=== PATIENT | male | born 1945 | race Caucasian/White ===

== ENCOUNTER 2019-04-08 05:57 | Inpatient (IN) | payer OTHER ==
--- NOTE | 2019-04-01 10:14 | RAD REPORT ---
EXAM DESCRIPTION: RAD - Chest Pa And Lat (2 Views) - 04/01/2019 10:07 am CLINICAL HISTORY: preop Chest pain. COMPARISON: No comparisons FINDINGS: The lungs are mildly emphysematous but clear. The heart is normal in size. No displaced fr actures. IMPRESSION: Mild COPD
--- NOTE | 2019-04-01 10:20 | EKG ---
Test Date: 2019-04-01 Test Time: 10:15:27 Treating Engineer: YESICA MEASUREMENT RESULTS: Intervals: Rate: 57 OK: 192 QRSD: 78 QT: 404 QTc: 393 [place]: P: 55 OK: 192 QRS: 22 T: 51 INTERPRETIVE STATEMENTS: Sinus bradycardia Otherwise normal ECG Compared to ECG 01/16/2007 16:09:57 Sinus rhythm no longer present Electronically Signed On 04-01-19 10:19:50 INSEAMER by Willam Lewis
[2019-04-01 10:38] LABS: Absolute Lymphocytes (CBC) 2.1 K/uL (0.7-4.9); Basophils % 1.1 % (0-1.3); Hematocrit 47.3 % (39.6-49.0); Lymphocytes % 28.6 % (15.3-44.8); MPV 8.1 fL (7.6-11.3); RBC Red Blood Cell Count 5.17 M/uL (4.33-5.43)
[2019-04-01 10:47] LABS: Protime INR 1.03
[2019-04-01 10:53] LABS: Potassium 4.1 mmol/L (3.5-5.1)
--- OUTSIDE RECORDS SUMMARY | 2019-04-08 06:04 | XMS REPORT ---
:1945 Author Organization eClinicalWorks Care Team Providers Name Role Phone Ventura Zia Provider Role Unavailable Allergies No Known Allergies Problems Problem Type Condition Code Onset Dates Condition Status Problem Uses hearing aid Z97.4 Active Problem Bilateral leg cramps R25.2 Active Problem 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 Active classified elsewhere without behavioral disturbance Problem Primary osteoarthritis of left knee M17.12 Active Problem Left sided sciatica M54.32 Active Problem Alzheimer''s disease, unspecified G30.9 Active Problem Pain, joint, knee, left M25.562 Active Medications No Known Medications Results No Known Results Summary Purpose eClinicalWorks Submission
--- OUTSIDE RECORDS SUMMARY | 2019-04-08 06:04 | XMS REPORT ---
:1945 [facility] Address [address] [place] [address] Dr. Lorenzo[address] [place] [id number] Care Team Providers Name Role Phone Unavailable Unavailable Unavailable Problems This patient has no known problems. Allergies, Adverse Reactions, Alerts This patient has no known allergies or adverse reactions. Medications This patient has no known medications.
--- OUTSIDE RECORDS SUMMARY | 2019-04-08 06:04 | XMS REPORT ---
:1945 Author Organization eClinicalWorks Care Team Providers Name Role Phone ShelleyAnthony Provider Role Unavailable Allergies, Adverse Reactions, Alerts Substance Reaction Event Type N.K.D.A. Info Not Available Non Drug Allergy Problems Problem Type Condition Code Onset Dates Condition Status Assessment Primary osteoarthritis of left knee M17.12 Active Assessment Pain in joint of left knee M25.562 Active Assessment Lumbar radiculopathy M54.16 Active Problem Uses hearing aid Z97.4 Active Problem Bilateral leg cramps R25.2 Active Problem 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 Active classified elsewhere without behavioral disturbance Problem Primary osteoarthritis of left knee M17.12 Active Problem Left sided sciatica M54.32 Active Problem Alzheimer''s disease, unspecified G30.9 Active Problem Pain, joint, knee, left M25.562 Active Medications Medication Code Code Instructions Start End Status Dosage System Date Date Slow-Mag [facility] 14124883168 71.5-119 MG Active 2 tablets Orally Once a day Ginkgo Biloba [facility] [address] Active not defined Namenda XR [facility] 75366299524 28 MG Orally Active 1 capsule Once a day Aricept [facility] 50138623738 5 MG Orally Active 1 tablet at Twice a day bedtime Aspir-81 [facility] 17348147204 81 MG Orally Active 1 tablet Once a day Turmeric [facility] 13081573619 500 MG Orally Active as directed Curcumin Vitamin D3 [facility] [address] Active not defined Fish Oil [facility] 92527002074 1000 MG Orally Active 1 capsule Once a day Results No Known Results Summary Purpose eClinicalWorks Submission
--- OUTSIDE RECORDS SUMMARY | 2019-04-08 06:04 | XMS REPORT ---
:1945 Author Organization eClinicalWorks Care Team Providers Name Role Phone ShelleyAnthony Provider Role Unavailable Allergies, Adverse Reactions, Alerts Substance Reaction Event Type N.K.D.A. Info Not Available Non Drug Allergy Problems Problem Type Condition Code Onset Dates Condition Status Assessment Pain in joint of left hip M25.552 Active Assessment Pain in joint of left knee M25.562 Active Assessment Lumbar radiculopathy M54.16 Active Assessment Primary osteoarthritis of left knee M17.12 Active Problem Uses hearing aid Z97.4 Active [...] Start End Status Dosage System Date Date [facility] 98952319497 81 MG Orally Active 1 tablet Once a day Vitamin D3 [facility] [address] Active not defined Aricept [facility] 97015728323 5 MG Orally Active 1 tablet at Twice a day bedtime Namenda XR [facility] 78028347976 28 MG Orally Active 1 capsule Once a day Slow-Mag [facility] 41362478989 71.5-119 MG Active 2 tablets Orally Once a day Turmeric [facility] 19856453491 500 MG Orally Active as directed Curcumin Ginkgo Biloba [facility] [address] Active not defined Fish Oil [place] 99986108600 1000 MG Orally Active 1 capsule Once a day Results No Known Results Summary Purpose eClinicalWorks Submission
--- OUTSIDE RECORDS SUMMARY | 2019-04-08 06:05 | XMS REPORT ---
:1945 Author Organization eClinicalWorks Care Team Providers Name Role Phone Anthony Shelley Provider Role Unavailable Allergies No Known Allergies [...] Medications Medication Code Code Instructions Start End Date Status Dosage System Date Tramadol HCl [facility] 98033795442 50 MG Orally Apr 06, Active 1 tablet Once a day 2019 as needed Xarelto [facility] 02010349953 10 MG Orally Apr 06, Active 1 tablet Once a day 2019 Results No Known Results Summary Purpose eClinicalWorks Submission
--- OUTSIDE RECORDS SUMMARY | 2019-04-08 06:05 | XMS REPORT ---
:1945 Author Organization eClinicalWorks Care Team Providers Name Role Phone Shelley Anthony Provider Role Unavailable Allergies No Known Allergies [...]
--- OUTSIDE RECORDS SUMMARY | 2019-04-08 06:05 | XMS REPORT ---
[...] Medications Results No Known Results Summary Purpose [employer] Submission
--- OUTSIDE RECORDS SUMMARY | 2019-04-08 06:05 | XMS REPORT ---
[...] Medications Results No Known Results Summary Purpose [employer] Submission
--- OUTSIDE RECORDS SUMMARY | 2019-04-08 06:05 | XMS REPORT ---
[...] Start End Status Dosage System Date Date Vitamin D3 [facility] [address] Active not defined Namenda XR ND 75769033975 28 MG Orally Active 1 capsule Once a day Aspir-81 [facility] 21439789609 81 MG Orally Active 1 tablet Once a day Turmeric [facility] 98327670514 500 MG Orally Active as directed Curcumin Ginkgo Biloba [facility] [address] Active not defined Slow-Mag [facility] 72028047858 71.5-119 MG Active 2 tablets Orally Once a day Aricept [facility] 26515055468 5 MG Orally Active 1 tablet at Twice a day bedtime Fish Oil [facility] 24764959477 1000 MG Orally Active 1 capsule Once a day Results No Known Results Summary Purpose eClinicalWorks Submission
[2019-04-08] MEDS ORDERED: Ringers Lactate 1,000 ML IV ONE (06:17)
[2019-04-08] MEDS ORDERED: CEFAZOLIN/SWI 2gm 2 GM/20 ML SYR ONE (06:17)
[2019-04-08] MEDS ORDERED: LIDOCAINE 2% MPF 5 ML VIAL ONE (06:37)
[2019-04-08] MEDS ORDERED: MIDAZOLAM HCL 2 MG/2 ML INJ ONE (06:37)
[2019-04-08] MEDS ORDERED: FENTANYL CITR 250 MCG/5 ML ONE (06:37)
[2019-04-08] MEDS ORDERED: propofoL 200 MG/20 ML VIAL IV ONE ×6 (06:37→09:31)
[2019-04-08] MEDS ORDERED: dexAMETHasone 10 MG/ML VIAL ONE (06:46)
[2019-04-08] MEDS ORDERED: BUPIVACAINE 0.25% PF 30 ML VIAL ONE (06:47)
[2019-04-08] MEDS ORDERED: TRANEXAMIC ACID 1,000 MG in NA CHLORIDE 0.9% 50 ML IV SCH (07:15)
[2019-04-08] MEDS ORDERED: EPHEDRINE SULF 50 MG/ML VIAL ONE (08:02)
[2019-04-08] MEDS: Ringers Lactate 1,000 ML IV ONE ×3 (08:18→08:35)
[2019-04-08] MEDS: BUPIVACA 0.5%/EPI 0.0005%/PF 30 ML VIAL ONE ×2 (09:12→10:25)
[2019-04-08] MEDS ORDERED: KETOROLAC 30 MG/ML INJ ONE (10:06)
--- NOTE | 2019-04-08 10:50 | P.BOP ---
Preoperative diagnosis: left knee osteoarthritis Postoperative diagnosis: same Primary procedure: left total knee arthroplasty Instructor Creeler: NONE,NONE Estimated blood loss: 20 cc Specimen: left knee bone remnants Findings: see dictation Anesthesia: General Complications: None Implants: Biomet Yasmany Persona Femur 12 CR, H tibia, 10 mm CR poly, 38 patella Fluids & blood products: per anesthesia record; TT: 101 mins @ 275 mmHg Transferred to: Recovery Room Condition: Good
[2019-04-08] MEDS ORDERED: HYDROMORPHONE HCL 0.5 MG/0.5 ML INJ IV PRN (10:56)
[2019-04-08] MEDS ORDERED: METOPROLOL TARTRATE 5 MG/5 ML INJ IV PRN (11:23)
[2019-04-08] MEDS ORDERED: ONDANSETRON 4 MG/2 ML VIAL IV PRN (11:24)
[2019-04-08 11:26] LABS: Hematocrit 42.9 % (39.6-49.0)
--- NOTE | 2019-04-08 11:43 | RAD REPORT ---
EXAM DESCRIPTION: RAD - Knee Left 2 View - 04/08/2019 11:29 am CLINICAL HISTORY: Left knee surgery FINDINGS: Postoperative changes of a left knee arthroplasty. The prosthesis is in good position No fracture or dislocation
[2019-04-08] MEDS ORDERED: FENTANYL CITR 100 MCG/2 ML ONE (11:47)
--- NOTE | 2019-04-08 11:47 | P.CNS ---
Date of Consult: 04/08/19 Reason for Consult: Afib Primary Care Provider: Dr. Whitehead Chief Complaint: left total knee History of Present Illness: Patient is a 73 yo M with PMHx of Alzheimer's dementia who was had left total knee replacement today by Dr. Shelley. Post operatively during recovery phase patient went into atrial fibrillation with a rate of 80s-90s. Did not complain of any chest pain. EKG was done. Hospitalist service was consulted for medical management. No alleviating or aggravating factors. Symptoms are mild, constant and progressive. When I saw the patient in the PACU he was still groggy from anesthesia however did not have any complaints. His VS were stable. Labs were being drawn. Should be noted that most of the history is taken from the son, previous records and OR staff. Allergies morphine Allergy (Verified 04/01/19 09:41) AMS Home medications list reviewed: Yes Home Medications: Donepezil [Aricept] 5 mg PO DAILY 04/01/19 Memantine HCl [Namenda Xr] 28 mg PO DAILY 04/01/19 Multivitamin [Daily Multivitamin] 1 each PO DAILY 04/01/19 Turmeric Root Extract [Turmeric Curcumin] 2 tab PO DAILY 04/01/19 - Past Medical/Surgical History Diabetic: No -: Alzheimers -: ventral hernia repair -: cholecystectomy -: low back surgery -: left rotator cuff repair - Family History Mother History Unknown: Yes Medical History: Lung disease Notes: dementia - Social History Smoking Status: Never smoker Alcohol use: No CD- Drugs: No Caffeine use: Yes Place of Residence: Home Review of Systems 10-point ROS is otherwise unremarkable Cardiovascular: As per HPI Musculoskeletal: As per HPI Physical Examination Temp Pulse Resp BP Pulse Ox 97.8 F 85 20 135/76 04/08/19 11:27 04/08/19 11:27 04/08/19 11:27 04/08/19 11:27 General: Alert, In no apparent distress, Oriented x3, Mild distress HEENT: Atraumatic, PERRLA, Mucous membr. moist/pink, EOMI, Sclerae nonicteric Neck: Supple, JVD not distended Respiratory: Clear to auscultation bilaterally, Normal air movement Cardiovascular: No edema, Normal pulses, Normal S1 S2, Irregular heart rate/ rhythm Gastrointestinal: Normal bowel sounds, Soft and benign, Non-distended, No tenderness Musculoskeletal: No tenderness, Other (left knee bandaged. ) Integumentary: No rashes Neurological: Normal speech, Normal tone, Cranial nerves 3-12 intact, Normal affect Laboratory Data (last 24 hrs) 04/08/19 11:15: Hgb 14.4, Hct 42.9 - Problems (1) Paroxysmal A-fib Current Visit: Yes Status: Acute Plan: Patient has no previous diagnosis of Afib. Likely paroxysmal triggered by stressors of surgery. Will check TSH, magnesium level. Obtain Echocardiogram. Patients CHADSVASC score is low. Recommend aspirin for anti-coagulation. Add low dose BB. Lopressor IV prn HR>130 Out patient follow up w cardiology. Patient had sleep apnea previously prior to losing weight which is a risk factor for Afib. (2) Status post left knee replacement Current Visit: Yes Status: Acute Plan: management as per Dr. Shelley PT juliann for DVT prophylaxis (3) Alzheimer's dementia without behavioral disturbance Current Visit: Yes Status: Acute Qualifiers: Alzheimer's disease onset: early-onset Qualified Code(s): G30.0 - Alzheimer 's disease with early onset; F02.80 - Dementia in other diseases classified elsewhere without behavioral disturbance Conclusions/Impression: Thank you for the opportunity to participate in the care of your patient. Will follow along with you.
[2019-04-08 11:49] LABS: Magnesium 2.1 mg/dL (1.8-2.4); Thyroid Stimulating Hormone 1.78 uIU/mL (0.360-3.740)
[2019-04-08 12:46] VITALS: BMI 25.4
[2019-04-08] MEDS: TRAMADOL HCL 50 MG TAB PO PRN ×2 (13:25→20:21)
--- NOTE | 2019-04-08 13:58 | EKG ---
Test Date: 2019-04-08 Test Time: 11:01:54 Cleaner: BRADLEY MEASUREMENT RESULTS: Intervals: Rate: 80 HI: QRSD: 80 QT: 376 QTc: 433 [place]: P: HI: QRS: 54 T: 55 INTERPRETIVE STATEMENTS: Atrial fibrillation Abnormal ECG Compared to ECG 04/01/2019 10:15:27 Sinus bradycardia no longer present Electronically Signed On 04-08-19 13:57:36 TRANSPORTATION SALES CONSULTANT by Willam Lewis
--- NOTE | 2019-04-08 15:24 | ECHO ---
HEIGHT: 6 ft 0 in WEIGHT: 188 lb 0 oz DATE OF STUDY: 04/08/[address]: Emilie Carpenter MD 2-DIMENSIONAL: YES M.MODE: YES DOPPLER: YES COLOR FLOW: YES TDS: NO PORTABLE: NO DEFINITY: NO BUBBLE STUDY: NO DIAGNOSIS: ATRIAL FIBRILLATION NEW ONSET CARDIAC HISTORY: CATHERIZATION: NO SURGERY: NO PROSTHETIC VALVE: NO PACEMAKER: NO MEASUREMENTS (cm) DIASTOLIC (NORMALS) SYSTOLIC (NORMALS) IVSd 0.8 (0.6-1.2) LA Diam 3.1 (1.9-4.0) LVEF 73% LVIDd 5.7 (3.5-5.7) LVIDs 3.3 (2.0-3.5) %FS 42% LVPWd 1.0 (0.6-1.2) Ao Diam 3.1 (2.0-3.7) 2 DIMENSIONAL ASSESSMENT: RIGHT ATRIUM: NORMAL LEFT ATRIUM: NORMAL RIGHT VENTRICLE: NORMAL LEFT VENTRICLE: NORMAL TRICUSPID VALVE: NORMAL MITRAL VALVE: NORMAL PULMONIC VALVE: NORMAL AORTIC VALVE: NORMAL PERICARDIAL EFFUSION: NONE AORTIC ROOT: NORMAL LEFT VENTRICULAR WALL MOTION: NORMAL DOPPLER/COLOR FLOW: NORMAL COMMENTS: NORMAL 2D ECHOCARDIOGRAM WITH DOPPLER. SINUS RHYTHM DURING THEY STUDY. TECHNOLOGIST: Faustino CORNEJO
[2019-04-08 16:26] LABS: Urine Appearance CLOUDY; Urine Bilirubin NEGATIVE (NEG); Urine Blood NEGATIVE (NEG); Urine Color YELLOW; Urine Glucose NEGATIVE (NEG); Urine Protein NEGATIVE (NEG); Urine Specific Gravity >=1.030 (1.005-1.030); Urine Urobilinogen 0.2 mg/dL (0.2-1.0)
[2019-04-08 16:31] LABS: Urine Microscopic Reflex ORDER UMIC
[2019-04-08] MEDS: HYDROCODONE/APAP 7.5/325 MG TAB PO PRN (16:31)
[2019-04-08 16:41] LABS: Urine Amorphous Sediment 2+ /HPF (NONE SEEN); Urine Bacteria <20 /HPF (NONE SEEN); Urine Culture Reflex Order NOT NEEDED; Urine Mucus 2+ /HPF (NONE SEEN); Urine RBC <5 /HPF (NONE SEEN)
[2019-04-08] MEDS: CEFAZOLIN/SWI 2gm 2 GM/20 ML SYR IV SCH (17:33)
[2019-04-08] MEDS: carvediloL 3.125 MG TAB PO SCH (17:33)
--- NOTE | 2019-04-08 23:58 | OP ---
Date of Procedure: 04/08/2019 Surgeon: Anthony Shelley MD Preoperative Diagnosis: Left knee osteoarthritis. Postoperative Diagnosis: Left knee osteoarthritis. Procedure Performed: Left total knee arthroplasty. Anesthesia: General LMA. Fluids: Per Anesthesia record. Estimated Blood Loss: 20 mL. Complications: None. Tourniquet Time: 101 minutes at 275 mmHg. Implants: A Biomet Yasmany Persona femur size 12 standard CR; size H tibia, 10 mm CR poly; and a size 38 patella. Indication For Procedure: Darrel is a 73-year-old male, who presented to my clinic with signs and s ymptoms consistent with left knee osteoarthritis, who failed conservative treatment measures includin g injections, home exercise program. I discussed with the patient at length risks and benefits assoc iated with operative and nonoperative treatment. He expressed understanding and elected to proceed w ith the operative treatment. Description Of Procedure: After informed consent was obtained, the patient was identified in the pre operative holding area. The left lower extremity was marked. The patient was then taken back to the PACU where he underwent an adductor canal block to the left knee by Anesthesia. He was then transfe rred to the operating room, transferred to the operating table in supine fashion and placed under gen eral anesthesia. His left lower extremity was then prepped and draped in the usual sterile fashion. A time-out was initiated. The correct patient and procedure were confirmed and identified. The pat ient had received his preoperative prophylactic antibiotics. The left lower extremity was exsanguina lane and the tourniquet was inflated to 225 mmHg. Approximately, a 15 cm longitudinal incision was ma de centered over the patella. Dissection was then taken down the extensor mechanism. Median parapat ellar approach was then taken. Synovial fluid was then suctioned out. A fat pad was then excised. Lateral release was performed. The medial pericapsular tissue was then elevated off the proximal tib ia. The patella was everted. Osteophytes were then debrided using a rongeur. The medial and latera l meniscus were excised as well as the ACL. The knee was then placed in flexion. Preoperatively cut ting blocks have been made using MRI for surgical planning. A cutting block was then placed on the d istal femur, pins were placed, distal femoral cutting block was then placed. Steve wing was injury w as then used to confirm proper depth of the cut. Distal femur was then cut. The 4-in-1 guide was th en placed on the distal aspect of the distal femur. Anterior and posterior cuts were made as well as the anterior-posterior chamfer cuts. Steve wings were placed to ensure proper depth of the cuts. B one remnants were then placed on the back table and will be sent to pathology. The remainder of the medial and lateral meniscus were then excised. The tibial cutting guide was then placed on the proxi mal tibia. Alignment guide was placed and there was overall confirmation of proper alignment and slo pe. Pins were placed, proximal tibia was then cut. It was measured on the back table and a size H t ibia was selected. A size 12 standard CR femur was then placed for trial implant followed by the H t ibia and a 10 mm poly. The knee was in range, there is overall good stability and range of motion. The patella was then sized and cut using a size 38 patella. Patellar button was then placed. The kn ee was then ranged, there was good overall range of motion with good patellar tracking. The trial im plants were then removed. The wound was then irrigated thoroughly with normal saline. The anterior and posterior capsule were then injected with 0.5% Marcaine with epinephrine as well as the periosteu m and quad tendons and soft tissue around the proximal tibia. The cement was then prepared on the ba ck table and placed on the proximal tibia. The tibia was punched. Size H tibia then placed. Excess cement was then removed using a [place] elevator. The instrument was then placed on the distal femur. Distal femoral implant of a size 12 CR femur was placed. Excess cement was then removed. The 10 m m trial poly was then placed. The knee was held in extension as the cement hardened. Excess cement was then placed on the undersurface of the patella as 38 patella button was in. Excess cement was th en removed, the knee was then ranged, there was good overall tracking, flexion-extension, good stabil ity. Trial poly was then removed and the final poly 10 mm CR poly liner was then placed, locked into position. The knee was again ranged, there was good overall range of motion, patellar tracking, and stability. The wound was then again irrigated thoroughly with normal saline using pulse lavage. Ex tensor mechanism was then approximated using an interrupted #1 Vicryl followed by a running #1 Vicryl . The deep fascia was approximated using 0 Vicryl. Subcu tissue was approximated using a 2-0 Vicryl . Skin was approximated using francisco. Sterile dressing was applied. Tourniquet had been let down prior to closure. Hemostasis was achieved using Bovie electrocautery. The patient was awakened and transferred to PACU in stable condition. Postoperative Plan: Physical Therapy will be consulted postoperatively. He will be admitted to the floor for pain control and as well as medical monitoring. CV/MODL Voice ID: [id number] Report ID: [id number]
[2019-04-09] MEDS: HYDROCODONE/APAP 7.5/325 MG TAB PO PRN ×2 (00:13→06:53)
[2019-04-09] MEDS: CEFAZOLIN/SWI 2gm 2 GM/20 ML SYR IV SCH ×2 (00:14→09:19)
[2019-04-09] MEDS: TRAMADOL HCL 50 MG TAB PO PRN (04:15)
[2019-04-09] MEDS: carvediloL 3.125 MG TAB PO SCH ×2 (05:20→18:23)
[2019-04-09] MEDS: ENOXAPARIN 30 MG/0.3 ML SQ SCH ×2 (05:21→18:23)
[2019-04-09 06:26] LABS: Basophils % 0.1 % (0-1.3); Hematocrit 39.9 % (39.6-49.0); Lymphocytes % 7.6 % (15.3-44.8); MPV 8.7 fL (7.6-11.3); RBC Red Blood Cell Count 4.38 M/uL (4.33-5.43)
[2019-04-09 06:47] LABS: Magnesium 2.2 mg/dL (1.8-2.4); Phosphorus 2.9 mg/dL (2.5-4.9); Potassium 4.6 mmol/L (3.5-5.1)
[2019-04-09] MEDS: ASPIRIN EC 81 MG TAB PO SCH (08:42)
[2019-04-09] MEDS: MULTIVITAMIN TAB PO SCH (08:42)
[2019-04-09] MEDS: CELECOXIB 100 MG CAPSULE PO SCH (08:42)
[2019-04-09] MEDS ORDERED: DONEPEZIL HCL 5 MG TAB PO SCH (09:00)
[2019-04-09] MEDS ORDERED: HOME MED 1 EA UNK (Memantine Hcl [Namenda Xr] 28 MG) PO SCH (09:00)
[2019-04-09] MEDS: POLYETHYL GLY 3350 17 GM/DOSE PO SCH (09:19)
[2019-04-09] MEDS: DOCUSATE NA 100 MG CAP PO SCH ×2 (09:19→21:17)
[2019-04-09] MEDS: HYDROCODONE/APAP 10/325 TAB PO PRN ×3 (10:59→21:17)
--- NOTE | 2019-04-09 11:34 | P.PN ---
Subjective Date of Service: 04/09/19 Primary Care Provider: Dr. Whitehead Chief Complaint: left total knee Subjective: Improving Patient seen and examined. Patient did have some sun downing last night. Confused per family member last night. Today complains of pain. Still in sinus rhythm. Review of Systems 10-point ROS is otherwise unremarkable Cardiovascular: As per HPI Musculoskeletal: As per HPI Physical Examination - Vital Signs Temperature: 99.2 F Blood Pressure: 107/59 Pulse: 66 Respirations: 16 Pulse Ox (%): 95 - Physical Exam General: Alert, Oriented x3, Mild distress HEENT: Atraumatic, PERRLA, EOMI Neck: Supple, JVD not distended Respiratory: Clear to auscultation bilaterally, Normal air movement Cardiovascular: Normal pulses, Regular rate/rhythm, Normal S1 S2 Gastrointestinal: Normal bowel sounds, Soft and benign, Non-distended, No tenderness Musculoskeletal: No clubbing, No swelling, Tenderness Integumentary: No rashes, No erythema Neurological: Normal speech, Normal tone, Normal affect Lymphatics: No axilla or inguinal lymphadenopathy - Studies Laboratory Data (last 24 hrs) 04/09/19 05:19: Sodium 141, Potassium 4.6, BUN 21 H, Creatinine 1.06, Glucose 111 H, Phosphorus 2.9, Magnesium 2.2 04/09/19 05:19: WBC 13.6 H D, Hgb 13.3 L, Hct 39.9, Plt Count 184 04/08/19 11:15: Magnesium 2.1 04/08/19 11:15: Hgb 14.4, Hct 42.9 Medications List Reviewed: Yes Assessment And Plan - Current Problems (Diagnosis) (1) Paroxysmal A-fib Current Visit: Yes Status: Acute Plan: Patient has no previous diagnosis of Afib. Likely paroxysmal triggered by stressors of surgery. Now back in sinus rhythm. TSH, magnesium level normal. Obtain Echocardiogram. Patients CHADSVASC score is low. Recommend aspirin for anti-coagulation. Continue low dose BB. Lopressor IV prn HR>130 Out patient follow up w cardiology. Patient had sleep apnea previously prior to losing weight which is a risk factor for Afib. (2) Status post left knee replacement Current Visit: Yes Status: Acute Plan: Increase norco to 10mg dose. Family states pt gets confused w IV narcotics. management as per Dr. Shelley PT lovenox for DVT prophylaxis (3) Alzheimer's dementia without behavioral disturbance Current Visit: Yes Status: Acute Qualifiers: Alzheimer's disease onset: early-onset Qualified Code(s): G30.0 - Alzheimer 's disease with early onset; F02.80 - Dementia in other diseases classified elsewhere without behavioral disturbance
--- NOTE | 2019-04-09 12:24 | P.PN ---
Subjective Date of Service: 04/09/19 Primary Care Provider: Dr. Whitehead Chief Complaint: s/p Left total knee Subjective: Improving, Working w/ PT some confusion yesterday with anesthesia; improvement today; OOB with PT today Physical Examination - Vital Signs Temperature: 99.2 F Blood Pressure: 107/59 Pulse: 66 Respirations: 16 Pulse Ox (%): 95 - Physical Exam General: Alert, In no apparent distress Musculoskeletal: Other (LLE: dressing c/d/i; +EHL/FHL/GSC/TA; sensation grossly intact over dorsal and plantar foot; reports some paresthesias over the dorsal foot) - Studies Laboratory Data (last 24 hrs) 04/09/19 05:19: Sodium 141, Potassium 4.6, BUN 21 H, Creatinine 1.06, Glucose 111 H, Phosphorus 2.9, Magnesium 2.2 04/09/19 05:19: WBC 13.6 H D, Hgb 13.3 L, Hct 39.9, Plt Count 184 Medications List Reviewed: Yes Assessment And Plan - Plan Darrel is a 73 yo male s/p L TKA POD#1 with post op afib -in normal sinus rhythm at this time; medicine following - PT to mobilize; WBAT LLE -lovenox for DVT prophylaxis
[2019-04-09] MEDS: DONEPEZIL HCL 5 MG TAB PO SCH (21:17)
[2019-04-10] MEDS: HYDROCODONE/APAP 10/325 TAB PO PRN ×2 (02:14→08:19)
[2019-04-10] MEDS: ENOXAPARIN 30 MG/0.3 ML SQ SCH ×2 (06:03→18:30)
[2019-04-10] MEDS: TRAMADOL HCL 50 MG TAB PO PRN ×3 (06:03→19:50)
[2019-04-10] MEDS: carvediloL 3.125 MG TAB PO SCH ×2 (06:03→18:29)
[2019-04-10] MEDS: MULTIVITAMIN TAB PO SCH (08:18)
[2019-04-10] MEDS: ASPIRIN EC 81 MG TAB PO SCH (08:18)
[2019-04-10] MEDS: DOCUSATE NA 100 MG CAP PO SCH ×2 (08:18→19:51)
[2019-04-10] MEDS: CELECOXIB 100 MG CAPSULE PO SCH (08:18)
[2019-04-10] MEDS: POLYETHYL GLY 3350 17 GM/DOSE PO SCH (08:20)
[2019-04-10] MEDS: MEMANTINE HCL 28 MG PO SCH (08:20)
--- NOTE | 2019-04-10 08:35 | EKG ---
Test Date: 2019-04-09 Test Time: 21:58:30 Scientific Process Operator: RT Morley MEASUREMENT RESULTS: Intervals: Rate: 65 [place]: 162 QRSD: 74 QT: 378 QTc: 393 [place]: P: 18 WV: 162 QRS: 31 T: 56 INTERPRETIVE STATEMENTS: Normal sinus rhythm Low voltage QRS Borderline ECG Compared to ECG 04/08/2019 11:01:54 Low QRS voltage now present Atrial fibrillation no longer present Electronically Signed On 04-10-19 08:34:27 NEWS VIDEO EDITOR by Willam Lewis
[2019-04-10] MEDS ORDERED: HYDROCODONE/APAP 5/325 MG TAB PO PRN (09:03)
--- NOTE | 2019-04-10 09:06 | P.PN ---
Subjective Date of Service: 04/10/19 Primary Care Provider: Dr. Whitehead Chief Complaint: s/p Left total knee some confusion remain; ambulated with PT yesterday; Physical Examination - Vital Signs Temperature: 98.8 F Blood Pressure: 120/68 Pulse: 65 Respirations: 16 Pulse Ox (%): 95 - Physical Exam General: In no apparent distress Musculoskeletal: Other (LLE: dressing c/d/i; moves foot and ankle grossly) - Studies Medications List Reviewed: Yes Assessment And Plan - Plan Darrel is a 73 yo male s/p L TKA POD#2 with post op afib -in normal sinus rhythm at this time; medicine following - PT to mobilize; WBAT LLE -lovenox for DVT prophylaxis -with confusion will keep until tomorrow and continue to work with PT
--- NOTE | 2019-04-10 13:23 | RAD REPORT ---
EXAM DESCRIPTION: CT - Head Brain Wo Cont - 04/10/2019 1:17 pm CLINICAL HISTORY: ams Headache, drowsiness COMPARISON: Chest Pa And Lat (2 Views) dated 04/01/2019 TECHNIQUE: All CT scans are performed using dose optimization technique as appropriate and may inclu de automated exposure control or mA/KV adjustment according to patient size. FINDINGS: No intracranial hemorrhage, hydrocephalus or extra-axial fluid collection.Moderate periven tricular and deep white matter chronic microvascular ischemic changes suspected.No areas of brain garth ma or evidence of midline shift. The paranasal sinuses and mastoids are clear. The calvarium is intact. IMPRESSION: No acute intracranial abnormality. If clinical symptomology persists or progresses, MR imaging of the brain may be helpful.
--- NOTE | 2019-04-10 13:44 | P.PN ---
Subjective Date of Service: 04/10/19 Primary Care Provider: Dr. Whitehead Chief Complaint: s/p Left total knee Patient seen and examined. Confused per family member. Worked with PT. Still in sinus rhythm. Review of Systems 10-point ROS is otherwise unremarkable Physical Examination - Vital Signs Temperature: 98.6 F Blood Pressure: 104/60 Pulse: 64 Respirations: 15 Pulse Ox (%): 92 - Physical Exam General: Alert, In no apparent distress, Oriented x1, Mild distress HEENT: Atraumatic, PERRLA, EOMI Neck: Supple, JVD not distended Respiratory: Clear to auscultation bilaterally, Normal air movement Cardiovascular: No edema, Normal pulses, Regular rate/rhythm, Normal S1 S2 Gastrointestinal: Normal bowel sounds, Soft and benign, Non-distended, No tenderness Musculoskeletal: Tenderness (left knee) Integumentary: No rashes Neurological: Normal speech, Normal tone, Cranial nerves 3-12 intact, Normal affect - Studies Medications List Reviewed: Yes Assessment And Plan - Current Problems (Diagnosis) (1) Paroxysmal A-fib Current Visit: Yes Status: Acute Plan: Patient has no previous diagnosis of Afib. Likely paroxysmal triggered by stressors of surgery. Now back in sinus rhythm. TSH, magnesium level normal. Obtain Echocardiogram. Patients CHADSVASC score is low. Recommend aspirin for anti-coagulation. Continue low dose BB. Lopressor IV prn HR>130 Out patient follow up w cardiology. (2) Status post left knee replacement Current Visit: Yes Status: Acute Plan: norco increased to 10mg dose. Family states pt gets confused w IV narcotics. management as per Dr. Shelley PT lovenox for DVT prophylaxis (3) Alzheimer's dementia without behavioral disturbance Current Visit: Yes Status: Acute Plan: Still confused. Likely from anesthesia, sun downing. May use geodon or haldol for agitation as needed. Head CT negative Qualifiers: Alzheimer's disease onset: early-onset Qualified Code(s): G30.0 - Alzheimer 's disease with early onset; F02.80 - Dementia in other diseases classified elsewhere without behavioral disturbance
--- NOTE | 2019-04-10 14:32 | EKG ---
Test Date: 2019-04-09 Test Time: 21:59:07 [employer]: RT Morley MEASUREMENT RESULTS: Intervals: Rate: 64 PA: 160 QRSD: 92 QT: 374 QTc: 385 [place]: P: 25 PA: 160 QRS: 29 T: 59 INTERPRETIVE STATEMENTS: Normal sinus rhythm Low voltage QRS Borderline ECG Compared to ECG 04/09/2019 21:58:30 No significant changes Electronically Signed On 04-10-19 14:31:16 [employer] by Willam Lewis
--- NOTE | 2019-04-10 15:19 | RAD REPORT ---
EXAM DESCRIPTION: RAD - Chest Single View - 04/10/2019 3:06 pm CLINICAL HISTORY: ams COMPARISON: Chest Pa And Lat (2 Views) dated 04/01/2019 TECHNIQUE: AP portable chest image was obtained 04/10/2019 3:06 pm . FINDINGS: Lungs are clear. Low lung volumes are noted. Interstitial pattern is similar to comparison . Heart and vasculature are normal. No measurable pleural effusion and no pneumothorax. No acute bony abnormality seen. No acute aortic findings suspected. IMPRESSION: No acute cardiopulmonary process.
[2019-04-10] MEDS: DONEPEZIL HCL 5 MG TAB PO SCH (19:51)
[2019-04-11] MEDS: TRAMADOL HCL 50 MG TAB PO PRN (01:46)
[2019-04-11 05:55] LABS: Absolute Lymphocytes (CBC) 1.6 K/uL (0.7-4.9); Basophils % 0.5 % (0-1.3); Hematocrit 36.6 % (39.6-49.0); Lymphocytes % 18.3 % (15.3-44.8); MPV 8.2 fL (7.6-11.3); RBC Red Blood Cell Count 3.95 M/uL (4.33-5.43)
[2019-04-11 06:11] LABS: Magnesium 2.1 mg/dL (1.8-2.4); Phosphorus 1.7 mg/dL (2.5-4.9)
[2019-04-11] MEDS: ENOXAPARIN 30 MG/0.3 ML SQ SCH (06:24)
[2019-04-11] MEDS: carvediloL 3.125 MG TAB PO SCH (06:24)
[2019-04-11] MEDS: MULTIVITAMIN TAB PO SCH (08:45)
[2019-04-11] MEDS: MEMANTINE HCL 28 MG PO SCH (08:45)
[2019-04-11] MEDS: POLYETHYL GLY 3350 17 GM/DOSE PO SCH (08:46)
[2019-04-11] MEDS: DOCUSATE NA 100 MG CAP PO SCH (08:46)
[2019-04-11] MEDS: CELECOXIB 100 MG CAPSULE PO SCH (08:46)
[2019-04-11] MEDS: ASPIRIN EC 81 MG TAB PO SCH (08:46)
[2019-04-11 09:33] VITALS: O2SAT 96
[2019-04-11] MEDS ORDERED: IBUPROFEN 400 MG TAB PO PRN (10:07)
--- NOTE | 2019-04-11 10:54 | P.DS ---
Admission Date: 04/08/19 Discharge Date: 04/11/19 Primary Care Provider: Dr. Whitehead Disposition: DC HOME/HOME HEALTH CARE Discharge Condition: GOOD Reason for Admission: s/p Left total knee Consultations: Hospitalist Service: Dr. Carpenter Procedures: left total knee arthroplasty 04/08/2019 Brief History of Present Illness: Darrel is a 73 yo male with PMHx Alzheimer's dementia s/p left TKA on 2019 without complication Hospital Course: Patient underwent L TKA on 04/08/2019 without complication. In PACU he was noted to have paroxysmal afib and hospitalist service consulted. Patient had EKG, and echocardiogram performed and remained in normal sinus rhythm while on the floor with stable vital signs. Pain was controlled and physical therapy was consulted to aid with mobilization. He had some confusion while on the floor with history of Alzheimer's. He had CT head which was negative for acute pathology. He was discharged on 04/11/2019 in stable condition. He was given lovenox for DVT prophylaxis while on the floor and will be discharged with Xarelto for home. He will followup in my clinic in 2 weeks for staple removal and was also instructed to followup with cardiology on an outpatient basis. Vital Signs/Physical Exam: Temp Pulse Resp BP Pulse Ox 98.1 F 69 18 112/70 95 04/11/19 08:00 04/11/19 08:00 04/11/19 08:00 04/11/19 08:00 04/11/19 08:00 Laboratory Data at Discharge: WBC 8.8 K/uL (4.3-10.9) D 04/11/19 05:22 Hgb 12.4 g/dL (13.6-17.9) L 04/11/19 05:22 Hct 36.6 % (39.6-49.0) L 04/11/19 05:22 Plt Count 171 K/uL (152-406) 04/11/19 05:22 PT 12.1 SECONDS (9.5-12.5) 04/01/19 10:10 INR 1.03 04/01/19 10:10 APTT 33.6 SECONDS (24.3-36.9) 04/01/19 10:10 Sodium 142 mmol/L (136-145) 04/11/19 05:22 Potassium 4.0 mmol/L (3.5-5.1) 04/11/19 05:22 BUN 18 mg/dL (7-18) 04/11/19 05:22 Creatinine 0.96 mg/dL (0.55-1.3) 04/11/19 05:22 Glucose 84 mg/dL (74-106) 04/11/19 05:22 Phosphorus 1.7 mg/dL (2.5-4.9) L 04/11/19 05:22 Magnesium 2.1 mg/dL (1.8-2.4) 04/11/19 05:22 Home Medications: Donepezil [Aricept] 5 mg PO DAILY 04/01/19 Memantine HCl [Namenda Xr] 28 mg PO DAILY 04/01/19 Multivitamin [Daily Multivitamin] 1 each PO DAILY 04/01/19 Turmeric Root Extract [Turmeric Curcumin] 2 tab PO DAILY 04/01/19 Aspirin [Aspirin EC 81 MG] 81 mg PO DAILY #30 tablet. 04/11/19 Docusate [Colace Cap*] 100 mg PO BID cap 04/11/19 carvediloL [Coreg*] 3.125 mg PO BID 6AM 6PM #30 tab 04/11/19 New Medications: Aspirin [Aspirin EC 81 MG] 81 mg PO DAILY #30 tablet. carvediloL [Coreg*] 3.125 mg PO BID 6AM 6PM #30 tab Patient Discharge Instructions: keep dressing intact; use WILMER hose x 2 weeks; begin Xarelto tomorrow 04/12/19 in the morning; may take Tylenol as needed for pain and ibuprofen 400 mg in between Tylenol doses as needed for pain; followup with cardiology Diet: Regular Activity: Weight bearing as tolerated Followup: Anthony Shelley MD [ACTIVE - CAN ADMIT] - 1-2 Weeks
--- NOTE | 2019-04-11 10:55 | P.PN ---
Subjective Date of Service: 04/11/19 Primary Care Provider: Dr. Whitehead Chief Complaint: s/p Left total knee Subjective: Ambulating, Improving Patient seen and examined. Case discussed with Dr Shelley. Family at the bedside. Worked well with PT. Still in sinus rhythm Review of Systems 10-point ROS is otherwise unremarkable Physical Examination - Vital Signs Temperature: 98.1 F Blood Pressure: 112/70 Pulse: 69 Respirations: 18 Pulse Ox (%): 95 - Physical Exam General: Alert, In no apparent distress, Oriented x2 HEENT: Atraumatic, PERRLA, EOMI Neck: Supple, JVD not distended Respiratory: Clear to auscultation bilaterally, Normal air movement Cardiovascular: Regular rate/rhythm, Normal S1 S2 Gastrointestinal: Normal bowel sounds, Soft and benign, Non-distended, No tenderness Musculoskeletal: No tenderness Integumentary: No rashes Neurological: Normal speech, Normal strength at 5/5 x4 extr, Normal tone, Normal affect - Studies Laboratory Data (last 24 hrs) 04/11/19 05:22: Sodium 142, Potassium 4.0, BUN 18, Creatinine 0.96, Glucose 84, Phosphorus 1.7 L, Magnesium 2.1 04/11/19 05:22: WBC 8.8 D, Hgb 12.4 L, Hct 36.6 L, Plt Count 171 Medications List Reviewed: Yes Assessment And Plan - Current Problems (Diagnosis) (1) Paroxysmal A-fib Current Visit: Yes Status: Acute Plan: Patient has no previous diagnosis of Afib. Likely paroxysmal triggered by stressors of surgery. Now back in sinus rhythm. TSH, magnesium level normal. Patients CHADSVASC score is low. Recommend aspirin for anti-coagulation. Continue low dose BB. Lopressor IV prn HR>130 Out patient follow up w cardiology. (2) Status post left knee replacement Current Visit: Yes Status: Acute Plan: norco increased to 10mg dose. Family states pt gets confused w IV narcotics. management as per Dr. Shelley PT lovenox for DVT prophylaxis (3) Alzheimer's dementia without behavioral disturbance Current Visit: Yes Status: Acute Plan: Back to baseline. Head CT negative Qualifiers: Qualified Code(s): G30.0 - Alzheimer's disease with early onset; F02.80 - Dementia in other diseases classified elsewhere without behavioral disturbance
[2019-04-11 15:08] VITALS: BP 112/59; TEMP 99.4
== END 2019-04-11 14:59 | disposition home health service (06) | DRG 470 ==
LOC: OR 05:57 → ERHOLD 10:51 → 2ND 11:11
PROVIDERS: ADMIT Orthopaedic Surgery Sports Medicine; ATTEND Orthopaedic Surgery Sports Medicine
PROC: 0SRD069 Replacement of Left Knee Joint with Oxidized Zirconium on Polyethylene Synthetic Substitute, Cemented, Open Approach (ICD-10-PCS; principal; 2019-04-08 07:30)
DX: M17.12 Unilateral primary osteoarthritis, left knee (principal); I97.191 Other postprocedural cardiac functional disturbances following other surgery; M54.16 Radiculopathy, lumbar region; G30.9 Alzheimer's disease, unspecified; F02.80 Dementia in other diseases classified elsewhere, unspecified severity, without behavioral disturbance, psychotic disturbance, mood disturbance, and anxiety; Z79.82 Long term (current) use of aspirin; I48.0 Paroxysmal atrial fibrillation
CPT/HCPCS: 36415; 70450; 71045; 71046; 80048; 81003; 81015; 83735; 84100; 84145; 84443; 85014; 85018; 85025; 85610; 85730; 87040; 88304; 88305; 88311; 93005; 93306; 97116; 97139; 97161; 97530; J0690; J1100; J1650; J2250; J2704; J3010; J7120

== ENCOUNTER 2019-09-06 09:45 | Emergency (ER) | payer OTHER ==
--- OUTSIDE RECORDS SUMMARY | 2019-09-06 09:47 | XMS REPORT ---
:1945 Author Organization [employer] Care Team Providers Name Role Phone Anthony Shelley Provider Role Unavailable Allergies, Adverse Reactions, Alerts Substance Reaction Event Type N.K.D.A. Info Not Available Non Drug Allergy Problems Problem Type Condition Code Onset Dates Condition Statu s Problem Left sided sciatica M54.32 Active Problem Pain, joint, knee, left M25.562 Acti ve Assessment Pain in joint of left knee M25.562 A ctive Assessment 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 Assessment Pain, joint, knee, left M25.562 Acti ve Problem 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 Problem Bilateral leg cramps R25.2 Active Problem Atrial fibrillation, unspecified I48.91 Active type Problem Uses hearing aid Z97.4 Active Problem Primary osteoarthritis of left knee M17.12 Active Problem Alzheimer''s disease, unspecified G30.9 Active Problem 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 A ctive classified elsewhere without behavioral disturbance Medications Medication Code Code Instructions Start End Status Dosage System Date Date Namenda XR [facility] 27248898823 28 MG Orally Active 1 ca psule Once a day Ginkgo Biloba [facility] 10942-46811 Active not de fined Slow-Mag [facility] 42356981582 71.5-119 MG Active 2 table ts Orally Once a day Turmeric ND 52425907672 500 MG Orally Active as di rected Curcumin Aricept [facility] 99302682513 5 MG Orally Active 1 tablet at Twice a day bedtime Vitamin D3 [facility] 02226-70869 Active not defin ed Tramadol HCl ND 88795868887 50 MG Orally Apr 06, Active 1 tablet as Once a day 2020 needed Aspir-81 ND 24532992136 81 MG Orally Active 1 tabl et Once a day Fish Oil ND 70301057309 1000 MG Orally Active 1 ca psule Once a day Results No Known Results Summary Purpose [employer]ClinicalWorks Submission
--- OUTSIDE RECORDS SUMMARY | 2019-09-06 09:47 | XMS REPORT | Clinical Summary ---
:1945 Author Organization [facility] Address [address] [place] [address] Care Team Providers Name Role Phone Darinel Lewis Primary Care Provider Allergies Active Allergy Reactions Severity Noted Date Comments Propofol Other (See Comments) 06/26/2017 Per pat ient's family "doesnt do well" Morphine 06/26/2017 Medications Medication Sig Dispensed Refills Start Date End Date Status aspirin (ECOTRIN) 81 Take 81 mg by 0 Active MG enteric coated mouth daily. tablet UNABLE TO FIND EMpower 3 tabs 0 Active BID(vitamins) UNABLE TO FIND Med Name: Vatality 0 Active multivitamin cyanocobalamin 100 Take by mouth 0 Active MCG tablet daily. NAMENDA XR 28 mg Take 1 capsule (28 90 capsule 1 03/12/2018 Active capsule,sprinkle,ER mg total) by mouth 24hr daily. Active Problems Not on file Family History Medical History Relation Name Comments Cancer Mother Dementia Mother Relation Name Status Comments Mother Social History Tobacco Use Types Packs/Day Years Used Date Never Smoker Smokeless Tobacco: Never Used Alcohol Use Drinks/Week oz/Week Comments No Sex Assigned at Date Recorded Not on file Job Start Date Occupation Industry Not on file Not on file Not on file Travel History Travel Start Travel End No recent travel history available. Last Filed Vital Signs Not on file Plan of Treatment Health Maintenance Due Date Last Done Comments COLONOSCOPY SCREENING 1996 SHINGLES VACCINES (#1) 1996 65+ PNEUMOCOCCAL VACCINE (1 of 2 - PCV13) 01/01/2012 INFLUENZA VACCINE 10/17/2019 Results Not on fileafter 09/05/2018 Insurance Payer Benefit Plan / Subscriber ID Effective Dates Phone Addre ss Type Group HUMANA MEDICARE HUMANA MEDICARE xxxxxxxxx 2017-Present PPO PPO/PFFS/ERS MCR [phone] [id number] (Work) Darrel Vivas Kofi Personal/Family Self 1945 [address] (Home) [place], [place] [phone] [id number] (Work) Advance Directives For more information, please contact: [phone] Type Date Recorded 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
--- OUTSIDE RECORDS SUMMARY | 2019-09-06 09:47 | XMS REPORT | Continuity of Care Document ---
:1945 Author Organization [facility] t Address [address] [place] [address] Care Team Providers Name Role Phone Darinel Geller Primary Care Physician 1, Lab Attending Clinician Unavailable Doctor Unassigned, Name Attending Clinician Unavailable Problems Condition Condition Condition Status Onset Resolution Last Treating Co mments Source Name Details Category Date Date Treatment Clinician Date Neuroma [facility]roma [facility] Bilateral Bilateral Problem Active [facility] leg cramps leg cramps Kathia kes - [facility] Uses Uses Problem Active [facility] hearing hearing [facility] aid aid [facility] Dementia Dementia Problem Active [facility] other in other [facility] - diseases diseases Memori a classified classified l elsewhere elsewhere Outp ati without without ent behavioral behavioral Cl inics disturbanc disturbanc e e Alzheimer' Alzheimer' Problem Active [facility] - disease, disease, [facility] unspecifie [facility] l [facility] Primary Primary Problem Active [facility] osteoarthr osteoarthr Kathia kes - itis of itis of Memoria left knee left knee l [facility] Left sided Left sided Problem Active [facility] sciatica sciatica [facility] Pain, Pain, Diagnosis Active [facility] joint, joint, [facility] - knee, left knee, left Me moria l [facility] Status Status Problem Active [facility] post total post total Kathia kes - left knee left knee Thomas katherine replacemen replacemen l t t [facility] Atrial Atrial Problem Active [facility] fibrillati fibrillati Kahtia kes - on, on, Memoria unspecifie unspecifie l d type d type [facility] Allergies, Adverse Reactions, Alerts Allergy Allergy Status Severity Reaction(s) Onset Inactive Treating Comm ents Source Name Type Date Date Clinician Propofol Propensi Active Other (See Per David perez ty to Comments) 06-26 patient's Meth sudeep adverse 00:00: family st reaction 00 "doesnt s to do well" drug Morphine Propensi Active [place] ty to 06-26 Methodi adverse 00:00: st reaction 00 s to drug Family History Family Member Diagnosis Comments Start Date Stop Date Source Natural mother Cancer [facility] Natural mother Dementia [facility] Social History Social Habit Start Date Stop Date Quantity Comments Source Sex Assigned At Mcdaniel M ethodist Alcohol intake 2017-10-30 2017-10-30 Current [facility] 00:00:00 00:00:00 non-drinker of alcohol (finding) Smoking Status Start Date Stop Date Source Never smoker Mcdaniel [facility] Medications Ordered Filled Start Stop Current Ordering Indication Dosage Frequency Signature Comments Components Source Medication Medication Date Date Medication? Clinician (SIG) Name Name Tramadol Tramadol Yes Anthony [address] [facility] HCl HCl 1-20 Shelley as needed [facility] 00:[facility]: [facility] 00 [facility] NAMENDA XR 2017-03 Yes 28mg QD Take 1 [place] on 28 mg 2-26 capsule Methodi capsule,spr 00:00: ([address] inkle,ER 00 total) by 24hr mouth daily. UNABLE TO Yes Med Name: Alberto NDIAYE 8-15 Vatality Methodi 12:46: multivitam st 10 in cyanocobala Yes QD Take by Alberto unger min 100 MCG 8-15 mouth Methodi tablet 12:46: daily. st 10 aspirin Yes 81mg QD Take 81 mg [place] (ECOTRIN) 8-15 by mouth Method i 81 MG 12:44: daily. st enteric 11 coated tablet UNABLE TO Yes EMpower 3 Alberto unger FIND 8-15 tabs Methodi 12:44: BID(vitami st 11 ns) Aricept Aricept Yes Delmar not [facility] defined [facility] Ginkgo Ginkgo Yes Anthony not [facility] Biloba Biloba Shelley defined [facility] Namenda XR Namenda XR Yes Anthony [address] [facility] [facility] Slow-Mag Slow-Mag Yes Anthony [address] [facility] Vitamin D3 Vitamin D3 Yes Anthony not [facility] Shelley defined [facility]ics Aricept Aricept Yes Anthony [address] Shelley at bedtime [facility]ics Fish Oil Fish Oil Yes Anthony [address] [facility]ley [facility] Turmeric Turmeric Yes Anthony as [facility] Curcumin Curcumin Shelley directed [facility] Aspir-81 Aspir-81 Yes Anthony [address] [facility] Immunizations Ordered Filled Immunization Date Status Comments Sourc e Immunization Name Name FLUZONE HIGH DOSE FLUZONE HIGH DOSE 2018-11-[address] [facility] - OVER 65 OVER 65 00:00:00 [facility] Procedures This patient has no known procedures. Plan of Care Planned Activity Planned Date Details Comments Source Future Scheduled 2019-10-17 INFLUENZA VACCINE [place] [facility] 00:00:00 [code = INFLUENZA VACCINE] Future Scheduled 2012-01-01 65+ PNEUMOCOCCAL [facility] 00:00:00 VACCINE (1 of 2 - PCV13) [code = 65+ PNEUMOCOCCAL VACCINE (1 of 2 - PCV13)] Future Scheduled 1996 COLONOSCOPY SCREENING [facility] 00:00:00 [code = COLONOSCOPY SCREENING] Future Scheduled 1996 SHINGLES VACCINES (#1) [facility] 00:00:00 [code = SHINGLES VACCINES (#1)] Encounters Start End Encounter Admission Attending Care Care Encounter Source Date/Time Date/Time Type Type Clinicians Facility Department ID 2019-07-27 2019-07-27 Outpatient Gavi Vasquez [id number] [facility] 09:[facility]00 09[facility]00[facility]00 [facility] 2019-05-21 2019-05-21 Outpatient Gavi Vasquez [id number] [facility] 09:30:00 09:30:00 t [facility] 2019-05-21 2019-05-21 [facility] [id number] 08:00:00 08:00:00 t [facility] 2019-05-21 2019-05-21 [facility] [id number] 08:00:00 08:00:00 t Tiger[facility] 2019-04-21 2019-04-21 [facility] [id number] 15:30:00 15:30:[address] [facility] 2019-04-21 2019-04-21 [facility] [id number] 14:00:00 14:00:00 t [facility] 2019-04-21 2019-04-21 [facility] [id number] 09:03:00 09:03:00 t [facility] 2019-04-13 2019-04-13 [facility] [id number] [address] 13:33:00 13:33:00 t [facility] 2019-04-13 2019-04-13 [facility] [id number] 09:41:00 09:41:00 t [facility] 2019-04-06 2019-04-06 [facility] [id number] 14:16:00 14:16:00 t [facility] 2019-03-31 2019-03-31 [facility] [id number] 10:30:00 10:30:00 t [facility] 2019-03-16 2019-03-16 [facility] [id number] 14:27:00 14:27:00 t [facility] 2019-03-06 2019-03-06 [facility] [id number] 12:01:00 12:01:00 t [facility] 2019-02-24 2019-02-24 [facility] [id number] 15:54:00 15:54:00 t [facility] 2019-02-24 2019-02-24 [facility] [id number] 15:11:00 15:11:00 t [facility] 2019-02-16 2019-02-16 [facility] [id number] 11:41:00 11:41:00 t [facility] 2019-02-11 2019-02-11 [facility] [id number] 10:30:00 10:30:00 t [facility] ent Clinics 2019-01-19 2019-01-19 [facility] [id number] 10:59:00 10:59:00 t Tiger[facility] 2019-01-15 2019-01-15 [facility] [id number] 14:00:00 14:00:00 t Tigerlily [facility] 2019-01-15 2019-01-15 [facility] [id number] 10:00:00 10:00:00 t [facility] 2018-12-01 2018-12-01 Teacher Home Therapy 1, Adc Lab RUST [id number] 10:07:31 10:22:31 Visit Mattie [id number] [place] [id number] [place] [id number] 2018-12-01 2018-12-01 Orders Doctor TONI [id number] 00:00:00 00:00:00 Only Unassigned, XOCHITL [id number] [place] [id number] 2018-11-19 2018-11-19 [facility] [id number] [address] 09:45:00 09:45:00 t [facility] 2018-08-25 2018-08-25 [facility] [id number] 10:00:00 10:00:00 t [facility] 2018-07-15 2018-07-15 [facility] [id number] 10:30:00 10:30:00 t [facility] 2018-06-09 2018-06-09 [facility] [id number] 12:00:00 12:00:00 t [facility] 2018-06-09 2018-06-09 [facility] [id number] 11:00:00 11:00:00 t [facility] 2018-05-22 2018-05-22 [facility] [id number] [address] 15:30:00 15:30:00 t [facility] 2018-05-13 2018-05-13 [facility] [id number] 14:00:00 14:00:00 t [place] [facility] 2018-04-24 2018-04-24 [facility] [id number] 08:30:00 08:30:00 t [facility] 2018-03-27 2018-03-27 [facility] [id number] 08:00:00 08:00:00 t [facility] 2018-03-21 2018-03-21 [facility] [id number] [facility] 08:30:00 08:30:00 t [facility] 2018-03-14 2018-03-14 [facility] [id number] 08:30:00 08:30:00 t [facility] 2018-02-27 2018-02-27 Outpatient [facility] an[facility]io Vasquez [id number] [facility] 08:30:00 08:30:00 t [facility] Results This patient has no known results.
[2019-09-06 10:56] LABS: Absolute Lymphocytes (CBC) 1.4 K/uL (0.7-4.9); Basophils % 0.8 % (0-1.3); Hematocrit 49.2 % (39.6-49.0); Lymphocytes % 14.4 % (15.3-44.8); MPV 8.3 fL (7.6-11.3); RBC Red Blood Cell Count 5.46 M/uL (4.33-5.43)
[2019-09-06 10:58] LABS: Protime INR 0.97
[2019-09-06 11:01] LABS: ALT/SGPT 83 U/L (12-78); AST/SGOT 160 U/L (15-37); Alkaline Phosphatase 86 U/L (45-117); BUN Blood Urea Nitrogen 13 mg/dL (7-18); Bicarbonate 31 mmol/L (21-32); Bilirubin Direct 0.9 mg/dL (0-0.2); Bilirubin Total 1.9 mg/dL (0.2-1.0); Glucose Level 98 mg/dL (74-106); Magnesium 2.3 mg/dL (1.8-2.4); NT PRO-BNP 48 pg/mL (<125); Potassium 4.2 mmol/L (3.5-5.1); Protein, Total 7.5 g/dL (6.4-8.2); Sodium Level 144 mmol/L (136-145); Troponin (Emerg Dept Use Only) < 0.02 ng/mL (0.0-0.045)
[2019-09-06] MEDS ORDERED: PANTOPRAZOLE 40 MG INJ ONE (11:01)
--- NOTE | 2019-09-06 13:18 | RAD REPORT ---
EXAM DESCRIPTION: Carlos Single View09/06/2019 10:25 am CLINICAL HISTORY: Abdominal pain COMPARISON: March 2019 FINDINGS: The lungs appear clear of acute infiltrate. The heart is normal size IMPRESSION: No acute abnormalities displayed
--- NOTE | 2019-09-06 13:18 | RAD REPORT ---
EXAM DESCRIPTION: US - Abdomen Exam Limited - 09/06/2019 12:21 pm CLINICAL HISTORY: Abdominal pain. COMPARISON: None. FINDINGS: Cholecystectomy The biliary tree is normal caliber. IMPRESSION: Cholecystectomy Unremarkable exam
--- NOTE | 2019-09-06 13:18 | RAD REPORT ---
EXAM DESCRIPTION: CT - Abdomen Pelvis W Contrast - 09/06/2019 1:00 pm CLINICAL HISTORY: Abdominal pain COMPARISON: none. TECHNIQUE: Computed axial tomography of the abdomen pelvis was obtained. 100 cc Isovue-300 was admin istered intravenously. Oral contrast was not requested which limits evaluation of bowel. All CT scans are performed using dose optimization technique as appropriate and may include automated exposure control or mA/KV adjustment according to patient size. FINDINGS: Hepatic and splenic granulomata Pancreas, and adrenals appear unremarkable Cholecystectomy 3 millimeter nonobstructing right renal calculus. 14 millimeter intermediate density mass left kidney There is no evidence of diverticulitis. Normal appendix Postsurgical changes involve the lumbar spine Rectum is mildly distended with stool. Small left inguinal hernia contains fat IMPRESSION: Nonobstructing right renal calculus 14 millimeter left renal mass could represent a benign complex cyst or neoplasm. It is recommended th at the patient have a followup ultrasound in 6 months to assess stability
--- NOTE | 2019-09-06 13:42 | EDPHYS ---
Physician Documentation [facility] Name: Darrel Vivas Age: 73 yrs Sex: Male : 1945 Arrival Date: 09/06/2019 Time: 09:54 Bed 5 Private MD: ED Physician Juan Jose Thacker HPI: 09/05 10:45 This 73 yrs old Male presents to ER via Ambulatory with complaints of snw Abdominal Pain. 10:45 The patient presents with abdominal pain in the epigastric area, in the right upper snw quadrant. Onset: The symptoms/episode began/occurred suddenly, this morning. The symptoms do not radiate. Associated signs and symptoms: Pertinent positives: nausea. The symptoms are described as constant. Severity of pain: At its worst the pain was mild. The patient has not experienced similar symptoms in the past. The patient has not recently seen a physician. takes ASA every other day, Spouse gave pepto, tums, and sodium bicarb this am, pain down from 9-10 to 4. Historical: - Allergies: 10:06 Morphine; ss - Home Meds: 10:06 memantine 28 mg oral tab 1 cap once daily [Active]; donepezil 5 mg oral tab 1 tab once ss daily [Active]; fish oil [Active]; D3 [Active]; youthful brain [Active]; aspirin 81 mg Oral TbEC 1 tab once daily [Active]; Memory Pro 3 capsules in the AM [Active]; curcumin [Active]; CBD gummy at night [Active]; B-12 [Active]; - PMHx: 10:07 Alzheimers; ss - PSHx: 10:06 Cholecystectomy; Hernia repair; L shoulder repair; L knee replacement; back sx; Carpal ss Tunnel Repair; - Immunization history:: Adult Immunizations up to date. - Social history:: Smoking status: Patient denies any tobacco usage or history of. ROS: 10:44 Constitutional: Negative for fever, chills, and weight loss, Eyes: Negative for injury, snw pain, redness, and discharge, ENT: Negative for injury, pain, and discharge, Neck: Negative for injury, pain, and swelling, Cardiovascular: Negative for chest pain, palpitations, and edema, Respiratory: Negative for shortness of breath, cough, wheezing, and pleuritic chest pain, Back: Negative for injury and pain, : Negative for injury, bleeding, discharge, and swelling, MS/Extremity: Negative for injury and deformity, Skin: Negative for injury, rash, and discoloration, Neuro: Negative for headache, weakness, numbness, tingling, and seizure. 10:44 Abdomen/GI: Positive for abdominal pain, nausea, Negative for vomiting, diarrhea, constipation, abdominal distension, black/tarry stool. Exam: 10:43 Constitutional: This is a well developed, well nourished patient who is awake, alert, snw and in no acute distress. Head/Face: Normocephalic, atraumatic. Eyes: Pupils equal round and reactive to light, extra-ocular motions intact. Lids and lashes normal. Conjunctiva and sclera are non-icteric and not injected. Cornea within normal limits. Periorbital areas with no swelling, redness, or edema. ENT: Nares patent. No nasal discharge, no septal abnormalities noted. Tympanic membranes are normal and external auditory canals are clear. Oropharynx with no redness, swelling, or masses, exudates, or evidence of obstruction, uvula midline. Mucous membranes moist. Neck: Trachea midline, no thyromegaly or masses palpated, and no cervical lymphadenopathy. Supple, full range of motion without nuchal rigidity, or vertebral point tenderness. No Meningismus. Chest/axilla: Normal chest wall appearance and motion. Nontender with no deformity. No lesions are appreciated. 10:43 Respiratory: Lungs have equal breath sounds bilaterally, clear to auscultation and percussion. No rales, rhonchi or wheezes noted. No increased work of breathing, no retractions or nasal flaring. Abdomen/GI: Soft, non-tender, with normal bowel sounds. No distension or tympany. No guarding or rebound. No evidence of tenderness throughout. Pascual's sign negative Back: No spinal tenderness. No costovertebral tenderness. Full range of motion. Skin: Warm, dry with normal turgor. Normal color with no rashes, no lesions, and no evidence of cellulitis. MS/ Extremity: Pulses equal, no cyanosis. Neurovascular intact. Full, normal range of motion. Neuro: Awake and alert, GCS 15, oriented to person, place, time, and situation. Cranial nerves II-XII grossly intact. Motor strength 5/5 in all extremities. Sensory grossly intact. Cerebellar exam normal. Normal gait. Psych: Awake, alert, with orientation to person, place and time. Behavior, mood, and affect are within normal limits. 10:43 Cardiovascular: Rate: normal, Rhythm: irregular, Pulses: no pulse deficits are appreciated, Heart sounds: normal, Edema: is not appreciated. 10:43 ECG was reviewed by the Attending Physician. Vital Signs: 09:59 BP 138 / 99; Pulse 80; Resp 16; Temp 97.5(TE); Pulse Ox 100% on R/A; Weight 83.91 kg; ss Height 6 ft. 0 in. (182.88 cm); Pain 4/10; 11:21 BP 131 / 85; Pulse 68; Resp 16; Pulse Ox 99% ; sv 12:17 BP 154 / 83; Pulse 65; Resp 14; Pulse Ox 99% ; sv 13:00 BP 138 / 69; Pulse 69; Resp 15; Pulse Ox 98% ; sv 14:00 BP 127 / 86; Pulse 67; Resp 18; Temp 98.0; Pulse Ox 99% on R/A; ph 09:59 Body Mass Index 25.09 (83.91 kg, 182.88 cm) ss MDM: 10:11 Patient medically screened. snw 13:45 Data reviewed: vital signs, nurses notes. Data interpreted: Pulse oximetry: on room air snw is 98 %. Interpretation: normal. Counseling: I had a detailed discussion with the patient and/or guardian regarding: the historical points, exam findings, and any diagnostic results supporting the discharge/admit diagnosis, the presence of at least one elevated blood pressure reading (>120/80) during this emergency department visit, lab results, radiology results, the need for outpatient follow up, for definitive care. Response to treatment:. 09/05 10:12 Order name: Basic Metabolic Panel; Complete Time: : snw 09/05 10:12 Order name: CBC with Diff; Complete Time: : snw 09/05 10:12 Order name: LFT's; Complete Time: : snw 09/05 10:12 Order name: Magnesium; Complete Time: : snw 09/05 10:12 Order name: NT PRO-BNP; Complete Time: : snw 09/05 10:12 Order name: PT-INR; Complete Time: 11:04 09/05 10:12 Order name: Troponin (emerg Dept Use Only); Complete Time: 11:01 09/05 10:12 Order name: XRAY Chest (1 view); Complete Time: 13:21 09/05 10:12 Order name: EKG; Complete Time: 10:13 09/05 10:24 Order name: Lipase; Complete Time: 11:01 09/05 11:03 Order name: CT Abd/Pelvis - PO and IV Contrast; Complete Time: 13:21 09/05 11:34 Order name: US Abdomen Limited; Complete Time: 13:21 09/05 13:45 Order name: Troponin (emerg Dept Use Only); Complete Time: 14:44 09/05 10:12 Order name: Cardiac monitoring; Complete Time: 10:21 09/05 10:12 Order name: EKG - Nurse/Tech; Complete Time: 10:38 09/05 10:12 Order name: IV Saline Lock; Complete Time: 10:38 09/05 10:12 Order name: Labs collected and sent; Complete Time: 10:38 09/05 10:12 Order name: O2 Per Protocol; Complete Time: 10:09/05 10:12 Order name: O2 Sat Monitoring; Complete Time: :09/05 13:45 Order name: EKG; Complete Time: 13:46 snw EC:43 Rate is 76 beats/min. Rhythm is regular. QRS Stout is Normal. ND interval is normal. No snw Q waves. T waves are Normal. No ST changes noted. Clinical impression: Normal ECG. Administered Medications: 10:58 Drug: ProTONIX 40 mg Route: IVP; Site: right antecubital; ph 11:30 Follow up: Response: No adverse reaction ph Disposition: 19:13 Co-signature as Attending Physician, Juan Jose Thacker MD. ma2 Disposition: 09/06/19 13:41 Discharged to Home. Impression: Kidney stone to right ureter, Constipation - Mild, Renal mass. - Condition is Stable. - Discharge Instructions: Constipation, Adult, High-Fiber Diet, Kidney Stones, Dietary Guidelines to Help Prevent Kidney Stones, Renal Mass. - Prescriptions for Miralax 17 gram/dose Oral - take 1 packet by ORAL route once daily dilute powder in 8 ounces of water or juice; 1 box. - Medication Reconciliation Form, Thank You Letter, Antibiotic Education, Prescription Opioid Use form. - Follow up: Emergency Department; When: As needed; Reason: Worsening of condition. Follow up: Private Physician; When: 2 - 3 days; Reason: Recheck today's complaints, Continuance of care, Re-evaluation by your physician. Signatures: Dispatcher [employer] EDNV Yara Lehman FNP-C SURG PHYSICIAN ASST-[place] Jeanne Hale, DEDE RN ss Pili Machado RN RN EmilieJuan Jose becker MD MD ma2 Corrections: (The following items were deleted from the chart) 15:17 13:41 09/06/2019 13:41 Discharged to Home. Impression: Kidney stone to right ureter; ss Constipation - Mild; Renal mass. Condition is Stable. Forms are Medication Reconciliation Form, Thank You Letter, Antibiotic Education, Prescription Opioid Use. Follow up: Emergency Department; When: As needed; Reason: Worsening of condition. Follow up: Private Physician; When: 2 - 3 days; Reason: Recheck today's complaints, Continuance of care, Re-evaluation by your physician. snw
--- NOTE | 2019-09-06 13:42 | ER ---
Nurse's Notes [facility] Name: Darrel Vivas Age: 73 yrs Sex: Male : 1945 Arrival Date: 09/06/2019 Time: 09:54 Bed 5 Private MD: Diagnosis: Kidney stone to right ureter;Constipation-Mild;Renal mass Presentation: 09/05 09:59 Chief complaint: Spouse and/or significant other states: Continuous epigastric burning ss that began this morning. Pt reports it started out as an 9/10 on pain scale and more stabbing pains, but after taking Pepcid, Tums and baking soda with water, pain is still there, but is now 4/10. Coronavirus screen: Proceed with normal triage. Patient denies a cough. Patient denies shortness of breath or difficulty breathing. Patient denies measured and/or subjective temperature greater than 100.4F prior to today's visit. Patient denies travel on a cruise ship or to a country the [facility] currently lists as an affected area. Patient denies contact with known and/or suspected case of COVID-19. Ebola Screen: Patient denies exposure to infectious person. Patient denies travel to an Ebola-affected area in the 21 days before illness onset. Initial Sepsis Screen: Does the patient meet any 2 criteria? No. Patient's initial sepsis screen is negative. Does the patient have a suspected source of infection? No. Patient's initial sepsis screen is negative. Risk Assessment: Do you want to hurt yourself or someone else? Patient reports no desire to harm self or others. Onset of symptoms was September 06, 2019. 09:59 Method Of Arrival: Ambulatory ss 09:59 Acuity: UDAY 3 ss Historical: - Allergies: 10:06 Morphine; ss - Home Meds: 10:06 memantine 28 mg oral tab 1 cap once daily [Active]; donepezil 5 mg oral tab 1 tab once ss daily [Active]; fish oil [Active]; D3 [Active]; youthful brain [Active]; aspirin 81 mg Oral TbEC 1 tab once daily [Active]; Memory Pro 3 capsules in the AM [Active]; curcumin [Active]; CBD gummy at night [Active]; B-12 [Active]; - PMHx: 10:07 Alzheimers; ss - PSHx: 10:06 Cholecystectomy; Hernia repair; L shoulder repair; L knee replacement; back sx; Carpal ss Tunnel Repair; - Immunization history:: Adult Immunizations up to date. - Social history:: Smoking status: Patient denies any tobacco usage or history of. Screenin:39 Abuse screen: Denies threats or abuse. Denies injuries from another. Nutritional ph screening: No deficits noted. Tuberculosis screening: No symptoms or risk factors identified. Fall Risk None identified. Assessment: 10:40 General: Appears in no apparent distress. comfortable, well groomed, Behavior is calm, ph cooperative, appropriate for age, Denies fever, feeling ill. Pain: Complains of pain in epigastric area Quality of pain is described as burning. Neuro: Level of Consciousness is awake, alert, obeys commands, Oriented to person, place, time, situation. Cardiovascular: Reports chest pain, Denies lightheadedness, nausea, shortness of breath, Capillary refill < 3 seconds in bilateral fingers Patient's skin is warm and dry. Rhythm is sinus rhythm Chest pain quality is burning, is located in epigastric area began suddenly. Respiratory: Airway is patent Respiratory effort is even, unlabored, Respiratory pattern is regular, symmetrical. GI: Abdomen is non-distended, Bowel sounds present X 4 quads. Abd is soft and non tender X 4 quads. Reports epigastric pain. Derm: Skin is intact, is healthy with good turgor, Skin is pink, warm \T\ dry. Musculoskeletal: Circulation, motion, and sensation intact. Range of motion: intact in all extremities. 12:15 Reassessment: US at the bedside. sv 12:26 Reassessment: Patient appears in no apparent distress at this time. Patient and/or ph family updated on plan of care and expected duration. Pain level reassessed. Patient is alert, oriented x 3, equal unlabored respirations, skin warm/dry/pink. Pt resting comfortably, awaiting radiology results. 14:23 Reassessment: Patient appears in no apparent distress at this time. Patient and/or ph family updated on plan of care and expected duration. Pain level reassessed. Patient is alert, oriented x 3, equal unlabored respirations, skin warm/dry/pink. D/C pending results of repeat Troponin. Vital Signs: 09:59 BP 138 / 99; Pulse 80; Resp 16; Temp 97.5(TE); Pulse Ox 100% on R/A; Weight 83.91 kg; ss Height 6 ft. 0 in. (182.88 cm); Pain 4/10; 11:21 BP 131 / 85; Pulse 68; Resp 16; Pulse Ox 99% ; sv 12:17 BP 154 / 83; Pulse 65; Resp 14; Pulse Ox 99% ; sv 13:00 BP 138 / 69; Pulse 69; Resp 15; Pulse Ox 98% ; sv 14:00 BP 127 / 86; Pulse 67; Resp 18; Temp 98.0; Pulse Ox 99% on R/A; ph 09:59 Body Mass Index 25.09 (83.91 kg, 182.88 cm) ss ED Course: 09:54 Patient arrived in ED. fj1 10:03 Triage completed. ss 10:07 Arm band placed on right wrist. ss 10:11 Yara Lehman FNP-C is PHCP. snw 10:11 Juan Jose Thacker MD is Attending Physician. snw 10:16 Pili Machado, DEDE is Primary Nurse. ph 10:25 XRAY Chest (1 view) In Process Unspecified. EDMS 10:30 Initial lab(s) drawn, by me, sent to lab. EKG done, by ED staff. Inserted saline lock: ph 20 gauge in right antecubital area, using aseptic technique. Blood collected. 10:39 Patient has correct armband on for positive identification. Bed in low position. Call ph light in reach. classroom monitor on. Pulse ox on. NIBP on. Door closed. Noise minimized. Warm blanket given. Pillow given. Head of bed elevated. 12:18 Ultrasound completed. Patient tolerated well. sg3 12:19 US Abdomen Limited In Process Unspecified. EDMS 13:01 CT completed. Patient tolerated procedure well. Patient moved back from CT. bq 13:01 CT Abd/Pelvis - PO and IV Contrast In Process Unspecified. EDMS 14:23 No provider procedures requiring assistance completed. ph 14:53 IV discontinued, intact, bleeding controlled, No redness/swelling at site. Pressure ss dressing applied. Administered Medications: 10:58 Drug: ProTONIX 40 mg Route: IVP; Site: right antecubital; ph 11:30 Follow up: Response: No adverse reaction ph Outcome: 13:41 Discharge ordered by . snw 14:53 Discharged to home ambulatory. 14:53 Condition: good 14:53 Discharge instructions given to patient, family, Instructed on discharge instructions, follow up and referral plans. medication usage, Demonstrated understanding of instructions, follow-up care, medications, Prescriptions given X 1. 15:17 Patient left the ED. Signatures: Dispatcher [employer] EDAshley Butler RN RN Yara Lehman, SCIENTIFIC ASSOCIATE-C SCIENTIFIC ASSOCIATE-Csnw Fabiola Mullen Shelby, RN RN Pili Machado RN RN [facility] [place] [id number] Troy Davies fj
[2019-09-06 15:33] VITALS: TEMP 97.5
[2019-09-06 15:37] VITALS: BP 138/69; O2SAT 98
== END 2019-09-06 15:17 | disposition home or self-care (01) ==
LOC: ER 09:45
DX: K59.00 Constipation, unspecified (principal); N20.0 Calculus of kidney; G30.9 Alzheimer's disease, unspecified; F02.80 Dementia in other diseases classified elsewhere, unspecified severity, without behavioral disturbance, psychotic disturbance, mood disturbance, and anxiety; Z79.82 Long term (current) use of aspirin; Z88.5 Allergy status to narcotic agent
CPT/HCPCS: 93005 ×2; 85025; 80048; 36415; 83735; 85610; 80076; 84484 ×2; 83690; 83880; 74177; 71045; 76705; 96374; 99285; Q9967; C9113

== ENCOUNTER 2019-12-28 10:11 | Emergency (ER) | payer OTHER ==
--- NOTE | 2019-12-28 11:13 | RAD REPORT ---
EXAM DESCRIPTION: CT - Head Brain Wo Cont - 12/28/2019 10:59 am CLINICAL HISTORY: Dizziness COMPARISON: November 2019 TECHNIQUE: Computed axial tomography of the head was obtained. IV contrast was not requested. All CT scans are performed using dose optimization technique as appropriate and may include automated exposure control or mA/KV adjustment according to patient size. FINDINGS: An intracranial bleed is not seen . The ventricles are normal in caliber. No extra-axial fluid collection is noted. Moderate to marked low-density areas within periventricular, deep and subcortical white matter withou t significant change from the prior exam Fluid within the sinuses/ mastoids is not seen. IMPRESSION: Moderate to marked low-density areas within periventricular, deep and subcortical white matter without significant change from prior exam. This may be secondary to ischemic changes secondar y to small vessel disease. A demyelinating process can also result in this appearance. No acute intracranial abnormality is seen.
--- OUTSIDE RECORDS SUMMARY | 2019-12-28 11:16 | XMS REPORT | Continuity of Care Document ---
:1945 Author Organization [facility] t Address [address] [place] [address] Care Team Providers Name Role Phone Darinel Geller Primary Care Physician Lab, Fam Pob I Attending Clinician Unavailable 1, Lab Attending Clinician Unavailable Doctor Unassigned, Name Attending Clinician Unavailable Payers Payer Name Policy Type Policy Number Effective Date Expiration Date S ource Problems Condition Condition Condition Status Onset Resolution Last Treating Co mments Source Name Details Category Date Date Treatment Clinician Date Primary Primary Diagnosis [facility] left knee left knee l Outpati ent Clinics Left sided Left sided Diagnosis Active [facility] Pain, Pain, Diagnosis Active [facility] joint, [facility], [facility] knee, left knee, left Me moria l [facility] Neuroma Neuroma Diagnosis [facility] Allergies, Adverse Reactions, Alerts Allergy Allergy Status Severity Reaction(s) Onset Inactive Treating Comm ents Source Name Type Date Date Clinician Propofol Propensi Active Other (See Per David perez ty to Comments) 06-26 patient's Meth sudeep adverse 00:00: family st reaction 00 "doesnt s to do well" drug Morphine Propensi Active [place] ty to 4-11 Methodi adverse 00:00: st reaction 00 s to drug Family History Family Member Diagnosis Comments Start Date Stop Date Source Natural mother Cancer [facility]ist Natural mother Dementia [facility] Social History Social Habit Start Date Stop Date Quantity Comments Source Sex Assigned At [facility] Tobacco use and 2017-10-30 2017-10-30 Never used [facility] exposure 00:00:00 00:00:00 Alcohol intake 2017-10-30 2017-10-30 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 Clinician (SIG) Name Name Tramadol Tramadol Yes Anthony [address] [facility] HCl HCl 1-20 Shelley as needed [facility] NAMENDA XR 2017-03 Yes 28mg QD Take [...] tablet UNABLE TO Yes [employer] 3 Alberto ute FIND 8-15 tabs Methodi 12:44: BID(vitami st 11 ns) Aricept Aricept Yes Delmar not [facility] defined [facility] Ginkgo Ginkgo Yes Anthony not [facility] Biloba Biloba Shelley defined [facility] Namenda XR Namenda XR Yes Anthony [address] [facility] Shelley [...] [facility] Amiodarone Amiodarone Yes Anthony [address] [facility] HCl HCl Shelley [facility] Gabapentin Gabapentin Yes Anthony not [facility] Shel[facility] defined [facility] MethylPREDN MethylPREDN Yes Anthony not [facility] ISolone ISolone Shelley defined [facility] Memantine Memantine Yes Anthony not [facility] HCl ER HCl ER Shelley defined [facility] Xarelto Xarelto Yes Anthony not [facility] Shelley defined [facility] Immunizations Ordered Filled Immunization Date Status Comments [facility] Immunization Name Name FLUZONE HIGH DOSE FLUZONE HIGH DOSE 2018-11-[address] [facility] OVER 65 OVER 65 00:00:00 [facility] Procedures This patient has no known procedures. Plan of Care Planned Activity Planned Date Details Comments Source Future Scheduled 2019-10-17 INFLUENZA VACCINE [place] [facility] 00:00:00 [code = INFLUENZA VACCINE] Future Scheduled 2012-01-01 65+ PNEUMOCOCCAL [place] Religion Test 00:00:00 VACCINE (1 of 1 - PPSV23) [code = 65+ PNEUMOCOCCAL VACCINE (1 of 1 - PPSV23)] Future Scheduled 1996 COLONOSCOPY SCREENING [place] ana Religion Test 00:00:00 [code = COLONOSCOPY SCREENING] Future Scheduled 1996 SHINGLES VACCINES (#1) H spencer Religion Test 00:00:00 [code = SHINGLES VACCINES (#1)] Encounters Start End Encounter Admission Attending Care Care Encounter Source Date/Time Date/Time Type Type Clinicians Facility Department ID 2019-12-24 2019-12-24 Outpatient [facility] [id number] [facility] 2019-12-23 2019-12-23 [facility] [id number] [facility] 2019-12-21 2019-12-21 [facility] [id number] [facility] 2019-12-03 2019-12-03 [facility] [id number] [facility] 2019-11-30 2019-11-30 [facility] [id number] [facility] 10:33:00 10:33:00 t [place] [facility] Medicine Outpati ent Clinics 2019-11-26 2019-11-26 [facility] [id number] 09:30:00 09:30:00 t [facility] Clin[facility] 2019-11-25 2019-11-25 [facility] [id number] [address] 09[facility]20:00 09:20:00 t [place] [facility] 2019-11-19 2019-11-19 [facility] [id number] 14:33:00 14:33:00 t [place] [facility] Medicine Outpati ent Clinics 2019-10-23 2019-10-23 [facility] [id number] [address] 14:10:00 14:10:00 t Specialty/U Kathia kes - Specialty rology Memori a /Urology Clinic l [facility] 2019-10-21 2019-10-21 [facility] [id number] [address] 10:30:00 10:30:00 t Specialty/U Kathia kes - Specialty rology Memori a /Urology Clinic l [facility] 2019-10-09 2019-10-09 [facility] [id number] [address] 14:50:00 14:50:00 t [place] [facility] Medicine Outpati ent Clinics 2019-10-09 2019-10-09 [facility] [id number] 11[facility]19:00 11:19:00 [place] [employer] [facility] Outpati ent Clinics 2019-10-08 2019-10-08 [facility] [id number] 10:45:00 10:45:00 t [place] [employer] [facility] Outpati ent Clinics 2019-10-02 2019-10-02 [facility] [id number] 08:06:00 08:06:00 t [place] [employer] [facility] Medicine Outpati ent Clinics 2019-09-28 2019-09-28 [facility] [id number] 11:18:00 11:18:00 t [employer] [facility] 2019-09-24 2019-09-24 [facility] [id number] 11:00:00 11:00:00 t [place] [facility] Clin[facility] 2019-09-11 2019-09-11 Laboratory Lab, [facility] [id number] 08:53:12 09:13:12 Only Fam [facility] [id number] [place] [id number] Professio [phone] nal 0[address] One 2019-07-27 2019-07-27 [facility] [id number] 09:00:00 09:00:00 t [facility] 2019-05-21 2019-05-21 [facility] [id number] 09:30:00 09:30:00 t [facility] 2019-05-21 2019-05-21 [facility] [id number] 08:00:00 08:00:00 t [place] [employer] Scheduling [facility] Outpati ent Clinics 2019-05-21 2019-05-21 [facility] [id number] [address] 08:00:00 08:00:00 [facility] [place] [facility] 2019-04-21 2019-04-21 [facility] [id number] 15:30:00 15:30:00 [facility] 2019-04-21 2019-04-21 [facility] [id number] 14:00:00 14:00:00 t [facility] 2019-04-21 2019-04-21 [facility] [id number] 09:03:00 09:03:00 t [facility] 2019-04-13 2019-04-13 [facility] [id number] 13:33:00 13:33:00 t [facility] 2019-04-13 2019-04-13 [facility] [id number] 09:41:00 09:41:00 t [facility] 2019-04-06 2019-04-06 [facility] [id number] 14:16:00 14:16:00 t [facility] 2019-03-31 2019-03-31 [facility] [id number] 10:30:00 10:30:00 t [facility] 2019-03-16 2019-03-16 [facility] [id number] 14:27:00 14:27:00 t Bone [facility] [place] [facility] ent Clinics 2019-03-06 2019-03-06 [facility] [id number] 12:01:00 12:01:00 t [facility] Clinics 2019-02-24 2019-02-24 [facility] [id number] 15:54:00 15:54:00 t [facility] 2019-02-24 2019-02-24 [facility] [id number] 15:11:00 15:11:00 t [facility] 2019-02-16 2019-02-16 [facility] [id number] 11:41:00 11:41:00 t [facility] ent Clinics 2019-02-11 2019-02-11 [facility] [id number] 10:30:00 10:30:00 t [facility] 2019-01-19 2019-01-19 [facility] [id number] 10:59:00 10:59:00 t [place] [facility] 2019-01-15 2019-01-15 [facility] [id number] 14:00:00 14:00:00 t [place] [facility] 2019-01-15 2019-01-15 [facility] [id number] 10:00:00 10:00:00 t [facility] 2018-12-01 2018-12-01 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 1, Adc Lab [facility] [id number] 10:07:31 10:22:31 Visit [place] [id number] [place] [id number] [place] [id number] [id number] 2018-12-01 2018-12-01 Orders Doctor MUÑOZ [id number] 00:00:00 00:00:00 Only Unassigned, XOCHITL [id number] [place] [id number] 2018-11-19 2018-11-19 [facility] [id number] 09:45:00 09:45:00 t [place] [facility] Clin[facility] 2018-08-25 2018-08-25 [facility] [id number] 10:00:00 10:00:00 t [facility] ent Clinics 2018-07-15 2018-07-15 [facility] [id number] 10:30:00 10:30:00 t [place] [facility] ent Clinics 2018-06-09 2018-06-09 [facility] [id number] 12:00:00 12:00:00 t [place] [facility] ent Clinics 2018-06-09 2018-06-09 [facility] [id number] 11:00:00 11:00:00 t AVA[employer]ai [facility] ent Clinics 2018-05-22 2018-05-22 [facility] [id number] 15:30:00 15:30:00 t [facility] ent Clinics 2018-05-13 2018-05-13 [facility] [id number] [facility] 14:00:00 14:00:00 t [place] [employer] Online Scheduling [facility] ent Clinics 2018-04-24 2018-04-24 [facility] [id number] 08:30:00 08:30:00 t [facility] ent Clinics 2018-03-27 2018-03-27 [facility] [id number] 08:00:00 08:00:00 t [facility] 2018-03-21 2018-03-21 [facility] [id number] 08:30:00 08:30:00 t [facility] 2018-03-14 2018-03-14 [facility] [id number] 08:30:00 08:30:00 t [facility] ent Clinics 2018-02-27 2018-02-27 [facility] [id number] 08:30:00 08:30:00 t Bone [facility] Results This patient has no known results.
--- OUTSIDE RECORDS SUMMARY | 2019-12-28 11:16 | XMS REPORT ---
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 A ctive classified elsewhere without behavioral disturbance Problem Uses hearing aid Z97.4 Active Assessment Left renal mass N28.89 Active Problem Pain, joint, knee, left M25.562 Acti ve Problem Left sided sciatica M54.32 Active Problem Left renal mass N28.89 Active Problem Calculus of right kidney N20.0 Act von Problem Constipation, unspecified K59.00 Ac tive constipation type Problem Bilateral leg cramps R25.2 Active Problem Alzheimer''s disease, unspecified G30.9 Active Problem Atrial fibrillation, unspecified I48.91 Active type Problem 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
--- OUTSIDE RECORDS SUMMARY | 2019-12-28 11:16 | XMS REPORT | Clinical Summary ---
:1945 Author Organization [facility] Address [address] [place] [address] Care Team Providers Name Role Phone Darinel [...] 24hr daily. Active Problems Not on file Surgical History Surgery Date Site/Laterality Comments HERNIA REPAIR 03/18/2016 - 03/17/2017 BACK SURGERY 03/18/2015 - 03/17/2016 GALLBLADDER SURGERY 03/18/2015 - 03/17/2016 Medical History Medical History Date Comments Concussion 2-3 concusions playi ng football Fall in tub hit head had seizure Family History Medical History Relation Name Comments Cancer Mother Dementia Mother Relation Name Status Comments Mother Social History Tobacco Use Types Packs/Day Years Used Date Never Smoker Smokeless Tobacco: Never Used Alcohol Use Drinks/Week oz/Week Comments No Sex Assigned at Date Recorded Not on file Last Filed Vital Signs Not on file Plan of Treatment Health Maintenance Due Date Last Done Comments COLONOSCOPY SCREENING 1996 SHINGLES VACCINES (#1) 1996 65+ PNEUMOCOCCAL VACCINE (1 of - PPSV23) 01/01/2012 INFLUENZA VACCINE 10/17/2019 Results Not on fileafter 12/27/2018 Insurance Payer Benefit Plan / Subscriber ID Effective Dates Phone Addre ss Type Group HUMANA MEDICARE HUMANA MEDICARE [id number] 2017-Present PPO PPO/PFFS/ERS [facility] [phone] [id number] (Work) Darrel Vivas Personal/Family Self [address] (Home) [place], [place] [phone] (Work) Advance Directives For more information, please contact: [phone] Type Date Recorded Patient Deputy Court Explanati on Advance Directives, Living Will and Medical Power of Public Health
--- OUTSIDE RECORDS SUMMARY | 2019-12-28 11:17 | XMS REPORT ---
:1945 Author Organization eClinicalWorks Care Team Providers Name Role Phone Anthony Shelley Provider Role Unavailable Allergies, Adverse Reactions, Alerts Substance Reaction Event Type N.K.D.A. 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 Problem Primary osteoarthritis of left knee M17.12 Active Assessment 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 Problem Left sided sciatica M54.32 Active Assessment Pain in joint of left knee M25.562 A ctive Problem Pain, joint, knee, left M25.562 Acti ve Medications Medication Code Code Instructions Start End Status Dosage System Date Date Vitamin D3 [facility] [address] Active not defined Amiodarone HCl [facility] 57367673929 200 MG Orally Active 1 tablet Once a day Gabapentin [facility] [address]-51 Active not defined MethylPREDNISolone [facility] [address]-98 Active not defined Fish Oil [facility] 27125321427 1000 MG Orally Active 1 ca psule Once a day Aspir-81 [facility] 31152433917 81 MG Orally Active 1 tabl et Once a day Slow-Mag [facility] 82564003619 71.5-119 MG Active 2 table ts Orally Once a day Memantine HCl ER [facility] [address]-88 Active n ot defined Tramadol HCl [facility] 93424855637 50 MG Orally Apr 06, Active 1 tablet Once a day 2019 as needed Xarelto [facility] [address]-36 Active not defined Namenda XR [facility] 81406424208 28 MG Orally Active 1 ca psule Once a day Aricept [facility] 48723650165 5 MG Orally Active 1 tablet Twice a day at bedtime Turmeric Curcumin [facility] 32547829857 500 MG Orally Acti ve as directed Ginkgo Biloba [facility] [address]61 Active not defined Results No Known Results Summary Purpose eClinicalWorks Submission
--- OUTSIDE RECORDS SUMMARY | 2019-12-28 11:17 | XMS REPORT ---
:1945 Author Organization eClinicalWorks Care Team Providers Name Role Phone Theresa Gunderson Provider Role Unavailable Allergies No Known Allergies Problems Problem Type Condition Code Onset Dates Condition Statu s Problem Alzheimer''s disease, unspecified G30.9 Active Problem Uses hearing aid Z97.4 Active Problem Bilateral leg cramps R25.2 Active Problem Primary osteoarthritis of left knee M17.12 Active Problem Left sided sciatica M54.32 Active Problem Pain, joint, knee, left M25.562 Acti ve Problem Constipation, unspecified K59.00 Ac tive constipation [...] Medications Results No Known Results Summary Purpose [employer] Submission
--- OUTSIDE RECORDS SUMMARY | 2019-12-28 11:17 | XMS REPORT ---
:1945 Author Organization eClinicalWorks Care Team Providers Name Role Phone Justyna Whiteheadh Provider Role Unavailable Allergies, Adverse Reactions, Alerts Substance Reaction Event Type N.K.D.A. 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 Problem Calculus of right kidney N20.0 Act von Assessment Constipation, unspecified K59.00 Ac tive constipation type Assessment Bilateral leg cramps R25.2 Active Problem Constipation, unspecified K59.00 Ac tive constipation type Problem Bilateral leg cramps R25.2 Active Problem Alzheimer''s disease, unspecified G30.9 Active Problem Atrial fibrillation, unspecified I48.91 Active type Problem 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 Assessment Calculus of right kidney N20.0 Act von Assessment Lower urinary tract symptoms R39.9 Active Assessment 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 A ctive classified elsewhere without behavioral disturbance Assessment Alzheimer''s disease, unspecified G30.9 Active Assessment Left renal mass N28.89 Active Assessment Adult BMI 25.0-25.9 kg/sq m Z68.25 Active Assessment Prediabetes R73.03 Active Assessment Blood in semen R36.1 Active Problem Pain, joint, knee, left M25.562 Acti ve Assessment Uses hearing aid Z97.4 Active Assessment Atrial fibrillation, unspecified I48.91 Active type Problem Left sided sciatica M54.32 Active Medications Medication Code Code Instructions Start End Status Dosage System Date Date Turmeric [facility] 05289448106 500 MG Orally Active as di rected Curcumin Vitamin D3 [facility] [address]37 Active not defin ed Fish Oil ND 85578589996 1000 MG Orally Active 1 ca psule Once a day Tramadol HCl [facility] 70681816838 50 MG Orally Apr 06, Active 1 tablet as Once a day 2019 needed Slow-Mag [facility] 50670626863 71.5-119 MG Active 2 table ts Orally Once a day Ginkgo Biloba [facility] [address]132-08156 Active not de fined Namenda XR [facility] 60597255473 28 MG Orally Active 1 ca psule Once a day Aricept [facility] 45611031440 5 MG Orally Active 1 tablet at Twice a day bedtime Amiodarone HCl [facility] 02168031134 200 MG Orally Active 1 tablet Once a day Aspir-81 [facility] 29038379746 81 MG Orally Active 1 tabl et Once a day Results No Known Results Summary Purpose eClinicalWorks Submission
--- OUTSIDE RECORDS SUMMARY | 2019-12-28 11:17 | XMS REPORT ---
[...] Problem Uses hearing aid Z97.4 Active Problem Pain, joint, knee, left M25.562 [...] Medications Results No Known Results Summary Purpose [employer] Submission
--- OUTSIDE RECORDS SUMMARY | 2019-12-28 11:17 | XMS REPORT ---
:1945 Author Organization [employer] Care Team Providers Name Role Phone Zia [...] Medications Results No Known Results Summary Purpose MD [employer] Submission
--- OUTSIDE RECORDS SUMMARY | 2019-12-28 11:17 | XMS REPORT ---
:1945 Author Organization e[employer]Works Care Team Providers Name Role Phone Theresa Gunderson Provider Role Unavailable Allergies, Adverse Reactions, Alerts [...] Active Problem Left sided sciatica M54.32 Active Assessment Renal mass N28.89 Active Problem Pain, joint, knee, left M25.562 Acti ve Medications Medication Code Code Instructions Start End Status Dosage System Date Date Turmeric [facility] 02772101609 500 MG Orally Active as di rected Curcumin Aspir-81 [facility] 05325055315 81 MG Orally Active 1 tabl et Once a day Slow-Mag [facility] 72626838316 71.5-119 MG Active 2 table ts Orally Once a day Ginkgo Biloba [facility] [address] Active not de fined Aricept [facility] 43539483604 5 MG Orally Active 1 tablet at Twice a day bedtime Fish Oil [facility] 09055792272 1000 MG Orally Active 1 ca psule Once a day Tramadol HCl [facility] 59617807196 50 MG Orally Apr 06, Active 1 tablet as Once a day 2020 needed Amiodarone HCl [facility] 92772467427 200 MG Orally Active 1 tablet Once a day Vitamin D3 [facility] [address] Active not defin ed Namenda XR [facility] 64049143887 28 MG Orally Active 1 ca psule Once a day Results No Known Results Summary Purpose eClinicalWorks Submission
--- OUTSIDE RECORDS SUMMARY | 2019-12-28 11:17 | XMS REPORT ---
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
--- OUTSIDE RECORDS SUMMARY | 2019-12-28 11:17 | XMS REPORT ---
[...] Medications Results No Known Results Summary Purpose [email or web address] Submission
--- OUTSIDE RECORDS SUMMARY | 2019-12-28 11:17 | XMS REPORT ---
:1945 Author Organization e[employer]Works Care Team Providers Name Role Phone Zia Whitehead Provider Role Unavailable Allergies, Adverse Reactions, Alerts Substance Reaction Event Type N.K.D.A. Info Not Available Non Drug Allergy Problems Problem Type Condition Code Onset Dates Condition Statu s Assessment Adult BMI 25.0-25.9 kg/sq m Z68.25 Active Assessment Prediabetes R73.03 Active Problem Left sided sciatica M54.32 Active Assessment Uses hearing aid Z97.4 Active Problem Pain, joint, knee, left M25.562 Acti ve Assessment Bilateral leg cramps R25.2 Active Problem Alzheimer''s disease, unspecified G30.9 Active Problem Uses hearing aid Z97.4 Active Problem Bilateral leg cramps R25.2 Active Problem Constipation, unspecified K59.00 Ac tive constipation type Problem Left renal mass N28.89 Active Assessment 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 A ctive classified elsewhere without behavioral disturbance Assessment 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 Problem Renal mass N28.89 Active Assessment Constipation, unspecified K59.00 Ac tive constipation type Problem Atrial fibrillation, unspecified I48.91 Active type Problem 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 A ctive classified elsewhere without behavioral disturbance Problem Calculus of right kidney N20.0 Act von Problem 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 Assessment Lower urinary tract symptoms R39.9 Active Assessment Blood in semen R36.1 Active Assessment Alzheimer''s disease, unspecified G30.9 Active Assessment Calculus of right kidney N20.0 Act von Problem Primary osteoarthritis of left knee M17.12 Active Assessment Atrial fibrillation, unspecified I48.91 Active type Assessment Left renal mass N28.89 Active Medications Medication Code Code Instructions Start End Status Dosage System Date Date Ginkgo Biloba [facility] [address] Active not de fined Slow-Mag [facility] 47322051527 71.5-119 MG Active 2 table ts Orally Once a day Aricept [facility] 12289268003 5 MG Orally Active 1 tablet at Twice a day bedtime Namenda XR [facility] 13640505626 28 MG Orally Active 1 ca psule Once a day Turmeric [facility] 58847854286 500 MG Orally Active as di rected Curcumin Fish Oil [facility] 39055665356 1000 MG Orally Active 1 ca psule Once a day Tramadol HCl [facility] 67891912815 50 MG Orally Apr 06, Active 1 tablet as Once a day 2020 needed Amiodarone HCl [facility] 12878728928 200 MG Orally Active 1 tablet Once a day Vitamin D3 [facility] [address] Active not defin ed Aspir-81 [facility] 45532947864 81 MG Orally Active 1 tabl et Once a day Results No Known Results Summary Purpose eClinicalWorks Submission
--- OUTSIDE RECORDS SUMMARY | 2019-12-28 11:18 | XMS REPORT ---
:1945 Author Organization [facility] Address [address] [place] [address] Care Team Providers Name Role Phone Jalyn Unavailable [phone] PROBLEMS Type Condition ICD9-CM [id number] Onset Condition SNOMED Code Notes Code Code Dates Status Problem Left sided M54.32 Active 71422008 sciatica Problem Primary M17.12 Active 445151243390930 osteoarthritis of left knee Problem Bilateral leg R25.2 Active 243280790 cramps Problem Uses hearing aid Z97.4 Active 274781685 Problem Dementia in other F02.80 Active 261185026 diseases classified elsewhere without behavioral disturbance Problem Constipation, K59.00 Active 18591484 unspecified constipation type Problem Alzheimer''s G30.9 Active 86169355 disease, unspecified Problem Renal mass N28.89 Active 067639209 Problem Pain, joint, M25.562 Active 94257187 knee, left Problem Atrial I48.91 Active 41384593 fibrillation, unspecified type 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 8387967802078 left knee replacement Problem Calculus of right N20.0 Active 08952502 kidney Problem Left renal mass N28.89 Active 296005373 ALLERGIES Allergen (clinical Drug/Non Drug Reaction Allergy Type Onset Date S tatus drug ingredient) Allergy documented on EMR morphine Unknown Non Drug Allergy Active ENCOUNTERS from 1945 to 2019-12-23 Encounter Location Date Provider Diagnosis [facility] [address] [facility] [address], Theresa Gunderson Specialty/[place] [address] IMMUNIZATIONS Vaccine Route Administration Date Status Bupivicaine [place] Unknown Mar 21, 2018 Administered Bupivicaine [place] Unknown Mar 27, 2018 Administered Bupivicaine [place] Unknown Apr 24, 2018 Administered Tdap - Unknown Oct 25, 2015 Administered FluAD Unknown Dec 19, 2012 Administered Hyalgan 20 mg Unknown Mar 27, 2018 Administered FluAD Unknown Dec 04, 2013 Administered Bupivicaine [place] Unknown Feb 10, 2018 Administered FluAD Unknown Dec 21, 2015 Administered Bupivicaine [place] Unknown Mar 14, 2018 Administered FluAD Unknown Nov 20, 2017 Administered Prevnar 13 (PCV13) Unknown Nov 20, 2017 Administered PNEUMAVAX 23 Unknown Dec 21, 2015 Administered FluAD Unknown May 11, 2008 Administered FluAD Unknown Dec 15, 2011 Administered Hyalgan 20 mg Unknown Mar 21, 2018 Administered Hyalgan 20 mg Unknown Mar 14, 2018 Administered Depo Medrol (40mg) Unknown Apr 24, 2018 Administered Depo Medrol (40mg) Unknown Feb 10, 2018 Administered Zostavax Unknown Apr 11, 2016 Administered FLUZONE HIGH DOSE OVER 65 IM Intramuscular Nov 19, 2018 Admin istered LIDOCAINE HCL 10MG/ML Unknown Jan 15, 2019 Administer ed Kenalog (Triamcinolone) Unknown Jan 15, 2019 Administ ered SOCIAL HISTORY Tobacco Use: Social History Observation Description Date Details (start date - stop date) Never Smoker Sex Assigned At : Social History Observation Description Sex Assigned At Unknown PHQ9 Question Answer Notes Little interest or pleasure in doing things Several days Feeling down, depressed, or hopeless Several days Trouble falling or staying asleep or sleeping too much Not a t all Feeling tired or having little energy Not at all Poor appetite or overeating Not at all Feeling bad about yourself, or that you are a failure, or No t at all have let yourself or your family down Trouble concentrating on things, such as reading the Several days newspaper or watching television Moving or speaking so slowly that other people could have No t at all noticed; or the opposite, being so fidgety or restless that you have been moving around a lot more than usual Total Score 3 Interpretation Minimal Depression Thoughts that you would be better off or of hurting Not at all yourself in some way Alcohol Screen Question Answer Notes Did you have a drink containing alcohol in the past year? No Points 0 Points 0 Interpretation Negative Tobacco Use/Smoking Question Answer Notes Are you a never smoker Additional Findings: Tobacco Non-User Current non-smoker Tobacco use other than smoking: Question Answer Notes Are you an other tobacco user? No REASON FOR REFERRAL No Information VITAL SIGNS No information MEDICATIONS Medication SIG (Take, Route, Start Date End Date Status Frequency, Duration) Turmeric Curcumin 500 MG as directed Orally Active Slow-Mag 71.5-119 MG 2 tablets Orally Once a day Active Vitamin D3 Active Ginkgo Biloba Active Amiodarone HCl 200 MG 1 tablet Orally Once a day Active for 30 day(s) Aricept 5 MG 1 tablet at bedtime Orally A ctive Twice a day Fish Oil 1000 MG 1 capsule Orally Once a day Active Gabapentin Not-Taking Tramadol HCl 50 MG 1 tablet as needed Orally Mar, Not-Taking Once a day MethylPREDNISolone Not-Takin g Namenda XR 28 MG 1 capsule Orally Once a day Active Xarelto Not-Taking Aspir-81 81 MG 1 tablet Orally Once a day Active Memantine HCl ER Active PROCEDURES No Information RESULTS No Results REASON FOR VISIT No Information MEDICAL (GENERAL) HISTORY Type Description Date Medical History Dementia in other diseases classified [facility] without behavioral disturbance Medical History Alzheimers disease, unspecified Medical History Bilateral leg cramps Medical History Uses hearing aid Medical History :BLOOD THINNERS-ASPIRIN Surgical History Hernia Surgical History Shoulder surgery Surgical History Back surgery Surgical History Gallbladder Surgical History Left total knee arthroplasty.-metal 03/19 Hospitalization History Left total knee arthroplasty. 2019 Goals Section No Information Health Concerns No Information MEDICAL EQUIPMENT No Information MENTAL STATUS No Information FUNCTIONAL STATUS No Information ASSESSMENTS No Information PLAN OF TREATMENT Next Appt Details Provider Name:Zia Whitehead, 2019-12-24 0 9:50:00 AM, [address], [place], [address], Provider Name:Theresa Gunderson, 10:00:00 AM, [address], [place], [address], Provider Name:Zia Whitehead, 2020-05-16 0 8:30:00 AM, [address], [place], [address], Provider Name:Zia Whitehead, 2020-05-25 0 9:30:00 AM, [address], [place], [address], Provider Name:Zia Ventura, 2020-05-25 1 0:00:00 AM, [address], [place], [address], Provider Name:Anthony Shelley, 2020-11-28 0 9:30:00 AM, [address] [facility] [address], [place], [address], Insurance Providers Payer Name Payer Address Payer Insured Patient Coverage Cover age End Phone Name Relationship to Start Date [place] Ins[place] [employer] [address] [address] [phone] James Vivas self 2018 MEDICARE PPO [place] [id number] [place] [address] [phone]
--- OUTSIDE RECORDS SUMMARY | 2019-12-28 11:18 | XMS REPORT ---
:1945 Author Organization [facility] Address [address] [place] [address] Care Team Providers Name Role Phone Jalyn Unavailable [phone] PROBLEMS Type Condition ICD9-CM QRA46-NT Onset Condition SNOMED Code Notes Code Code Dates Status Problem Left sided M54.32 Active 42623704 sciatica Problem Primary M17.12 Active 767063431754164 osteoarthritis of left knee Problem Bilateral leg R25.2 Active 981092276 cramps Problem Uses hearing aid Z97.4 Active 423405566 Problem Dementia in other F02.80 Active 660140880 diseases classified elsewhere without behavioral disturbance Problem Constipation, K59.00 Active 10355021 unspecified constipation type Problem Alzheimer''s G30.9 Active 89495843 disease, unspecified Problem Renal mass N28.89 Active 613012967 Problem Pain, joint, M25.562 Active 19331504 knee, left Problem Atrial I48.91 Active 49972066 fibrillation, unspecified type 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 4398090848289 left knee replacement Problem Calculus of right N20.0 Active 57865045 kidney Problem Left renal mass N28.89 Active 798727421 ALLERGIES Allergen (clinical Drug/Non Drug Reaction Allergy Type Onset Date S tatus drug ingredient) Allergy documented on EMR morphine Unknown Non Drug Allergy Active ENCOUNTERS from 1945 to 2019-12-22 Encounter Location Date Provider Diagnosis [facility] [address], Theresa Gunderson Renal mas s N28.89 Specialty/Urology [address] [facility] [address] IMMUNIZATIONS Vaccine Route Administration Date Status Bupivicaine [place] Unknown Mar 21, 2018 Administered Bupivicaine [place] Unknown Mar 27, 2018 Administered Bupivicaine [place] Unknown Apr 24, 2018 Administered Tdap - Unknown Oct 25, 2015 Administered FluAD Unknown Dec 19, 2012 Administered Hyalgan 20 mg Unknown Mar 27, 2018 Administered FluAD Unknown Dec 04, 2013 Administered Bupivicaine [place] Unknown Feb 10, 2018 Administered FluAD Unknown Dec 21, 2015 Administered Bupivicaine [place] Unknown Mar 14, 2018 Administered FluAD Unknown [...] REASON FOR REFERRAL No Information VITAL SIGNS Height 70 in Dec, Weight 185 lbs Dec, Temperature 97.9 degrees Fahrenheit Dec, BMI 26.54 kg/m2 Dec, Oximetry 97 % Dec, Blood pressure systolic 129 mm Hg Dec, Blood pressure diastolic 74 mm Hg Dec, MEDICATIONS Medication SIG (Take, Route, Start Date [...] Information RESULTS No Results REASON FOR VISIT renal mass MEDICAL (GENERAL) HISTORY Type Description Date Medical History Dementia in other diseases classified [facility] without behavioral disturbance Medical History Alzheimers disease, [...] No Information FUNCTIONAL STATUS No Information ASSESSMENTS Encounter Date Diagnosis Notes Dec, Renal mass (ICD-10 - N28.89) PLAN OF TREATMENT Treatment Notes Assessment Notes Clinical Notes Renal mass I spent over >50% of [address] uro gram scheduledRUS from going over CT results and likely 020 reviewed, has 14 mm left need for surgery. However, is renal massCr. 1.07 adn GFR 68, Mild concerned with Alzheimers how he decreas e, Stage 2 from 06/2018PSA 2.1 would handle surgery. Reviewed that from 01/16/2019Urine reflex, 20-40 I will discuss with Renal Mass RBC'sObta in CD of CTdiscussed results expert, Dr. Davis, and look at with , CT urogram confirms options, biopsy first? Cryo? But up mass Review CT with Dr. Paulo Davis for to Dr. Davis his best renal mass/tx opti ons, will call recommendation. after meeting Next Appt Details prn,2 - 3 Days Reason:Results Provider Name:Zia Whitehead, 2019-12-24 0 9:50:00 AM, [address], [place], [address], Provider Name:Theresa Gunderson, 10:30:00 AM, [address], [place], [address], Provider Name:Zia Whitehead, 2020-05-16 0 8:30:00 AM, [address], [place], [address], Provider Name:Zia Whitehead, 2020-05-25 0 9:30:00 AM, [address], [place], [address], Provider Name:Zia Ventura, 2020-05-25 1 0:00:00 AM, [address], [place], [address], Provider Name:Anthony Shelley, 2020-11-28 0 9:30:00 AM, [address] [facility] [address], [place], [address], Follow Up:prn,2 - 3 DaysResults Insurance Providers Payer Name Payer Address Payer Insured Patient Coverage Cover age End Phone Name Relationship to Start Date [place] Insured [employer] [address] [address] [phone] James Vivas self 2018 MEDICARE O [facility] [id number] [id number]
--- OUTSIDE RECORDS SUMMARY | 2019-12-28 11:18 | XMS REPORT ---
:1945 Author Organization [facility] Address [address] [place], [address] [place] [address] Care Team Providers Name Role Phone Whitehead Unavailable [phone] PROBLEMS Type Condition ICD9-CM OMG66-XA Onset Condition SNOMED Code Notes Code Code Dates Status Problem Left sided M54.32 Active 76477355 sciatica Problem Primary M17.12 Active 883858860647821 osteoarthritis of left knee Problem Bilateral leg R25.2 Active 111806544 cramps Problem Uses hearing aid Z97.4 Active 021259711 Problem Dementia in other F02.80 Active 187298074 diseases classified elsewhere without behavioral disturbance Problem Constipation, K59.00 Active 68698555 unspecified constipation type Problem Alzheimer''s G30.9 Active 92521962 disease, unspecified Problem Renal mass N28.89 Active 984396162 Problem Pain, joint, M25.562 Active 59996233 knee, left Problem Atrial I48.91 Active 11792307 fibrillation, unspecified type 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 8939242109023 left knee replacement Problem Calculus of right N20.0 Active 56141397 kidney Problem Left renal mass N28.89 Active 381975151 ALLERGIES Allergen (clinical Drug/Non Drug Reaction Allergy Type Onset Date S tatus drug ingredient) Allergy documented on EMR morphine Unknown Non Drug Allergy Active ENCOUNTERS from 1945 to 2019-12-24 Encounter Location Date Provider Diagnosis [facility] [address] [place], Zia Whitehead Lef t renal mass [facility] [address], [address] ; [place] [address] fibrillation, unspecified typ e I48.91 ; Blood in semen R36.1 ; L ower urinary tract symptoms R39.9 ; Calculus of rig ht kidney N20.0 ; Alzheimer''s di sease, unspecified G30 .9 ; Dementia in oth er diseases classi fied elsewhere witho ut behavioral disturbance F02 .80 ; Status post tot al left knee repla cement Z96.652 ; Constipation, unspecified constipation ty pe K59.00 ; Bilate ral leg cramps R25. 2 ; Uses hearing ai d Z97.4 ; Prediab etes R73.03 ; Adult BMI 25.0-25.9 kg/sq m Z68.25 ; Genera lized abdominal pain R10.84 ; Change in bow el habit R19.4 and Need for influenza vaccination Z23 IMMUNIZATIONS Vaccine Route Administration Date Status Bupivicaine [place] Unknown Mar 21, 2018 Administered FluAD IM Intramuscular Dec 24, 2019 Administered Bupivicaine [place] Unknown Mar 27, 2018 Administered Bupivicaine [place] Unknown Apr 24, 2018 Administered Tdap - Unknown Oct 25, 2015 Administered FluAD Unknown Dec 19, 2012 Administered Hyalgan 20 mg Unknown Mar 27, 2018 Administered FluAD Unknown Dec 04, 2013 Administered Bupivicaine [place] Unknown Feb 10, 2018 Administered FluAD Unknown Dec 21, 2015 Administered Bupivicaine [place] Unknown Mar 14, 2018 Administered FluAD Unknown [...] VITAL SIGNS Height 70 in Dec, Weight 185.66 lbs Dec, Temperature 97.4 degrees Fahrenheit Dec, BMI 26.64 kg/m2 Dec, Oximetry 99 % Dec, Respiratory Rate 16 /min Dec, Blood pressure systolic 134 mm Hg Dec, Blood pressure diastolic 66 mm Hg Dec, MEDICATIONS Medication SIG (Take, Route, Start Date End Date Status Frequency, Duration) Vitamin D3 Active Turmeric Curcumin 500 MG as directed Orally Active Aricept 5 MG 1 tablet at bedtime Orally A ctive Twice a day Fish Oil 1000 MG 1 capsule Orally Once a day Active MethylPREDNISolone Not-Takin g Ginkgo Biloba Active Amiodarone HCl 200 MG 1 tablet Orally Once a day Active for 30 day(s) Aspir-81 81 MG 1 tablet Orally Once a day Active Slow-Mag 71.5-119 MG 2 tablets Orally Once a day Active Namenda XR 28 MG 1 capsule Orally Once a day Active Memantine HCl ER Active Xarelto Not-Taking Gabapentin Not-Taking Tramadol HCl 50 MG 1 tablet as needed Orally Mar, Not-Taking Once a day PROCEDURES No Information RESULTS No Results REASON FOR VISIT Discuss CT Scan + flu shot MEDICAL (GENERAL) HISTORY Type Description Date Medical History Dementia in other diseases classified el sewhere without behavioral disturbance Medical History Alzheimers disease, [...] Information ASSESSMENTS Encounter Date Diagnosis Notes Dec, Left renal mass (ICD-10 - N28.89) Dec, Prediabetes (ICD-10 - R73.03) Dec, Uses hearing aid (ICD-10 - Z97.4) Dec, Blood in semen (ICD-10 - R36.1) Dec, Generalized abdominal pain (ICD-10 - R10 .84) Dec, Atrial fibrillation, unspecified type (I CD-10 - I48.91) Dec, Adult BMI 25.0-25.9 kg/sq m (ICD-10 - Z6 8.25) Dec, Status post total left knee replacement (ICD-10 - Z96.652) Dec, Bilateral leg cramps (ICD-10 - R25.2) Dec, Constipation, unspecified constipation t ype (ICD-10 - K59.00) Dec, Calculus of right kidney (ICD-10 - N20.0 ) Dec, Need for influenza vaccination (ICD-10 - Z23) Dec, Lower urinary tract symptoms (ICD-10 - R 39.9) Dec, Change in bowel habit (ICD-10 - R19.4) Dec, Dementia in other diseases classified el sewhere without behavioral disturbance (ICD-10 - F02.80) Dec, Alzheimer''s disease, unspecified (ICD-1 0 - G30.9) PLAN OF TREATMENT Medication Medication Name Sig Start Date Stop Date Fish Oil 1000 MG 1 capsule Orally Once a day Aricept 5 MG 1 tablet at bedtime Orally Twice a day Aspir-81 81 MG 1 tablet Orally Once a day Turmeric Curcumin 500 MG as directed Orally Slow-Mag 71.5-119 MG 2 tablets Orally Once a day Namenda XR 28 MG 1 capsule Orally Once a day Treatment Notes Assessment Notes Clinical Notes Generalized abdominal pain .Discussed differential diagnosis with patient and . Education given. Will obtain stool samples. Order given. Left renal mass ED course reviewed extensively with patient and . Answered all questions to the best my knowledge. CT scan with contrast reviewed. Asymptomatic at this time. Repeat CT reviewed as well with patient and . Patient would like to keep care locally, therefore patient would prefer to be seen by Dr. Shannon. Will refer to Dr. Shannon for further evaluation and management. Patient/ will schedule in end of December 2019. Adult BMI 25.0-25.9 kg/sq m Counseling given. Atrial fibrillation, unspecified Managed by cardiology. Fur ther type evaluation and management. On amiodarone at this time. Follow-up in 4 weeks. Blood in semen . Discussed differential diagnosis with patient extensively. Education given. Managed by urology for further evaluation and management. 2 distinct episode and denies any injuries or trauma. Lower urinary tract symptoms Managed by urology for further evaluation and management Calculus of right kidney . Asymptomatic at this time. Education given Alzheimer''s disease, unspecified Managed by . Ed ucation given. Dementia in other diseases Managed by . classified elsewhere without behavioral disturbance Prediabetes Diet-Controlled. recheck in 6 months. Education given. Uses hearing aid Encouarged on compliance. Status post total left knee Managed by Dr. Karsten rajput Constipation, unspecified . Discussed supportive measures constipation type such as increasing fiber in diet, hydration activity as tolerated. Bilateral leg cramps Discussed DDX. Stable with Slow-Mag. Education given. Treatment Notes Test Name Order Date C difficile Toxins A+B, EIA 2019-12-24 H. pylori Stool Ag, EIA 2019-12-24 Giardia, EIA; Ova/Parasite 2019-12-24 Stool Culture 2019-12-24 Ova + Parasite Exam 2019-12-24 White Blood Cells (WBC), Stool 2019-12-24 Next Appt Details 2 Weeks Reason: Provider Name:Theresa Gunderson, 10:00:00 AM, [address], [place], [address], Provider Name:Zia Whitehead 2020-01-07 1 0:30:00 AM, [address], [place], [address], Provider Name:Zia Whitehead, 2020-05-16 0 8:30:00 AM, [address], [place], [address], Provider Name:Zia Whitehead, 2020-05-25 0 9:30:00 AM, [address], [place], [address], Provider Name:Zia Whitehead, 2020-05-25 1 0:00:00 AM, [address], [place], [address], Provider Name:Anthony Shelley, 2020-11-28 0 9:30:00 AM, [address], [place], [address], Insurance Providers Payer Name Payer Address Payer Insured Patient Coverage Cover age End Phone Name Relationship to Start Date [place] Insured HU[employer] [address] [address] [phone] James Vivas self 2018 MEDICARE PPO [place] [id number] [place] [id number]
[2019-12-28 11:32] LABS: Absolute Lymphocytes (CBC) 1.6 K/uL (0.7-4.9); Hematocrit 46.9 % (39.6-49.0); Lymphocytes % 20.5 % (15.3-44.8); RBC Red Blood Cell Count 5.11 M/uL (4.33-5.43)
[2019-12-28 11:34] LABS: Protime INR 0.97
--- NOTE | 2019-12-28 11:45 | RAD REPORT ---
EXAM DESCRIPTION: Carlos Single View12/28/2019 11:34 am CLINICAL HISTORY: Shortness of breath COMPARISON: August 2019 FINDINGS: Mild chronic opacities left lung base. The lungs appear clear of acute infiltrate. The he art is normal size IMPRESSION: No acute abnormalities displayed
[2019-12-28 11:54] LABS: ALT/SGPT 22 U/L (12-78); AST/SGOT 14 U/L (15-37); Albumin 3.8 g/dL (3.4-5.0); Alkaline Phosphatase 79 U/L (45-117); BUN Blood Urea Nitrogen 15 mg/dL (7-18); Bicarbonate 28 mmol/L (21-32); Bilirubin Direct 0.2 mg/dL (0-0.2); Bilirubin Total 0.9 mg/dL (0.2-1.0); Glucose Level 79 mg/dL (74-106); Magnesium 2.2 mg/dL (1.8-2.4); NT PRO-BNP 122 pg/mL (<125); Potassium 4.1 mmol/L (3.5-5.1); Protein, Total 7.3 g/dL (6.4-8.2); Sodium Level 142 mmol/L (136-145); Troponin (Emerg Dept Use Only) < 0.02 ng/mL (0.0-0.045)
--- NOTE | 2019-12-28 12:45 | ER ---
Nurse's Notes [facility] Name: Darrel Vivas Age: 73 yrs Sex: Male : 1945 Arrival Date: 12/28/2019 Time: 10:13 Bed 7 Private MD: Zia Whitehead Diagnosis: Dizziness Presentation: 12/27 10:19 Chief complaint: Pt's states "he's been dizzy on and off and last Saturday he was aa5 wobbly and I caught him and he was dizzy for like 30 minutes to an hour". Pt's states "Saturday he almost fell again". 10:19 Coronavirus screen: Client denies travel out of the [place] in the last 14 days. At this aa5 time, the client does not indicate any symptoms associated with coronavirus-19. Ebola Screen: Patient negative for fever greater than or equal to 101.5 degrees Fahrenheit, and additional compatible Ebola Virus Disease symptoms. Initial Sepsis Screen: Does the patient meet any 2 criteria? No. Patient's initial sepsis screen is negative. Does the patient have a suspected source of infection? No. Patient's initial sepsis screen is negative. Risk Assessment: Do you want to hurt yourself or someone else? Patient reports no desire to harm self or others. Onset of symptoms was 2019. 10:19 Acuity: UDAY 3 aa5 10:19 Method Of Arrival: Wheelchair aa5 Historical: - Allergies: 10:20 Morphine; aa5 - PMHx: 10:20 Alzheimers; aa5 - PSHx: 10:20 Cholecystectomy; Hernia repair; L shoulder repair; L knee replacement; back sx; Carpal aa5 Tunnel Repair; - Immunization history:: Adult Immunizations unknown. - Social history:: Smoking status: Patient denies any tobacco usage or history of. Screenin:42 Abuse screen: Denies threats or abuse. Nutritional screening: No deficits noted. tw2 Tuberculosis screening: No symptoms or risk factors identified. Fall Risk Secondary diagnosis (15 points) impaired mobility. Assessment: 11:30 General: Appears in no apparent distress. uncomfortable, Behavior is calm, cooperative, jl7 appropriate for age. Pain: Denies pain. Neuro: Level of Consciousness is awake, alert, obeys commands, Oriented to person, place, time, situation. Cardiovascular: Patient's skin is warm and dry. Respiratory: Airway is patent Respiratory effort is even, unlabored, Respiratory pattern is regular, symmetrical. GI: No signs and/or symptoms were reported involving the gastrointestinal system. : No signs and/or symptoms were reported regarding the genitourinary system. EENT: No signs and/or symptoms were reported regarding the EENT system. Derm: Skin is pink, warm \\T\\ dry. Musculoskeletal: No signs and/or symptoms reported regarding the musculoskeletal system. 12:35 Reassessment: Patient appears in no apparent distress at this time. No changes from tw2 previously documented assessment. Patient and/or family updated on plan of care and expected duration. Pain level reassessed. Patient is alert, oriented x 3, equal unlabored respirations, skin warm/dry/pink. Vital Signs: 10:19 BP 157 / 90; Pulse 58; Resp 18 S; Temp 99.2(O); Pulse Ox 99% on R/A; Weight 81.65 kg aa5 (R); Height 6 ft. 0 in. (182.88 cm) (R); Pain 0/10; 11:41 BP 151 / 85; Pulse 56; Resp 14; Pulse Ox 97% on R/A; tw2 12:35 BP 143 / 88; Pulse 56; Resp 17; Pulse Ox 98% on R/A; tw2 10:19 Body Mass Index 24.41 (81.65 kg, 182.88 cm) aa5 ED Course: 10:13 Patient arrived in ED. ag5 10:13 Zia Whitehead DO is Private Physician. ag5 10:19 Arm band placed on Patient placed in an exam room, on a stretcher. aa5 10:20 Placed in gown. Bed in low position. Call light in reach. Adult w/ patient. Cardiac tw2 monitor on. Pulse ox on. NIBP on. 10:30 Maciel Jaimes PA is PHCP. jr8 10:30 Carlos Elliott MD is Attending Physician. jr8 10:31 Triage completed. aa5 10:33 EKG done, by holter technician. reviewed by Maciel MUNGUIA. at1 10:59 CT Head Brain wo Cont In Process Unspecified. EDMS 11:13 Initial lab(s) drawn, by me, sent to lab. Inserted saline lock: 20 gauge in right em1 antecubital area, using aseptic technique. Blood collected. 11:33 XRAY Chest (1 view) In Process Unspecified. EDMS 11:41 Brandon Carrington, RN is Primary Nurse. jl7 12:43 Tahir Lim MD is Referral Physician. jr8 13:00 No provider procedures requiring assistance completed. IV discontinued, intact, jl7 bleeding controlled, No redness/swelling at site. Pressure dressing applied. Administered Medications: No medications were administered Outcome: 12:43 Discharge ordered by . jr8 13:00 Discharged to home ambulatory. jl7 13:00 Condition: stable 13:00 Discharge instructions given to patient, family, Instructed on discharge instructions, follow up and referral plans. medication usage, Demonstrated understanding of instructions, follow-up care, medications, Prescriptions given X 1. 13:01 Patient left the ED. jl7 Signatures: Dispatcher [employer] EDMS Cornel Lopez em1 Ayde Zendejas, RN RN aa5 Maciel Jaimes PA PA jr8 Yasmin Gray, library information technician EKG Tat1 Huma Zaargoza, RN RN tw2 Brandon Carrington, RN RN jl7 Pranav Cornell 5
--- NOTE | 2019-12-28 12:45 | EDPHYS ---
Physician Documentation [facility] Name: Darrel Vivas Age: 73 yrs Sex: Male : 1945 Arrival Date: 12/28/2019 Time: 10:13 Bed 7 Private MD: Ventura Zia ED Physician Carlos Elliott HPI: 12/27 11:24 This 73 yrs old Male presents to ER via Wheelchair with complaints of jr8 Dizziness. 11:24 The patient presents with lightheadedness, feeling off balance. Onset: The jr8 symptoms/episode began/occurred suddenly. Modifying factors: The symptoms are alleviated by lying down, the symptoms are aggravated by standing up. Associated signs and symptoms: The patient has no apparent associated signs or symptoms. Severity of symptoms: At their worst the symptoms were moderate in the emergency department the symptoms have resolved. Patient's baseline: Neuro: alert but confused, Motor: no deficits, Ambulation: walks without assistance, Speech: normal. The patient has experienced similar episodes in the past, a few times. The patient has not recently seen a physician. Patient with history of Alzheimer's with intermittent confusion. stated that he has balance issues from time to time but came to ED today because it was lasting longer than normal. Historical: - Allergies: 10:20 Morphine; aa5 - PMHx: 10:20 Alzheimers; aa5 - PSHx: 10:20 Cholecystectomy; Hernia repair; L shoulder repair; L knee replacement; back sx; Carpal aa5 Tunnel Repair; - Immunization history:: Adult Immunizations unknown. - Social history:: Smoking status: Patient denies any tobacco usage or history of. ROS: 11:24 Eyes: Negative for injury, pain, redness, and discharge, ENT: Negative for injury, jr8 pain, and discharge, Neck: Negative for injury, pain, and swelling, Cardiovascular: Negative for chest pain, palpitations, and edema, Respiratory: Negative for shortness of breath, cough, wheezing, and pleuritic chest pain, Abdomen/GI: Negative for abdominal pain, nausea, vomiting, diarrhea, and constipation, Back: Negative for injury and pain, MS/Extremity: Negative for injury and deformity, Skin: Negative for injury, rash, and discoloration. 11:24 Neuro: Positive for dizziness. Exam: 11:24 Eyes: Pupils equal round and reactive to light, extra-ocular motions intact. Lids and jr8 lashes normal. Conjunctiva and sclera are non-icteric and not injected. Cornea within normal limits. Periorbital areas with no swelling, redness, or edema. ENT: Nares patent. No nasal discharge, no septal abnormalities noted. Tympanic membranes are normal and external auditory canals are clear. Oropharynx with no redness, swelling, or masses, exudates, or evidence of obstruction, uvula midline. Mucous membranes moist. Neck: Trachea midline, no thyromegaly or masses palpated, and no cervical lymphadenopathy. Supple, full range of motion without nuchal rigidity, or vertebral point tenderness. No Meningismus. Cardiovascular: Regular rate and rhythm with a normal S1 and S2. No gallops, murmurs, or rubs. Normal PMI, no JVD. No pulse deficits. Respiratory: Lungs have equal breath sounds bilaterally, clear to auscultation and percussion. No rales, rhonchi or wheezes noted. No increased work of breathing, no retractions or nasal flaring. Abdomen/GI: Soft, non-tender, with normal bowel sounds. No distension or tympany. No guarding or rebound. No evidence of tenderness throughout. Back: No spinal tenderness. No costovertebral tenderness. Full range of motion. Skin: Warm, dry with normal turgor. Normal color with no rashes, no lesions, and no evidence of cellulitis. MS/ Extremity: Pulses equal, no cyanosis. Neurovascular intact. Full, normal range of motion. Neuro: Awake and alert, GCS 15, oriented to person, place, time, and situation. Cranial nerves II-XII grossly intact. Motor strength 5/5 in all extremities. Sensory grossly intact. Cerebellar exam normal. Vital Signs: 10:19 BP 157 / 90; Pulse 58; Resp 18 S; Temp 99.2(O); Pulse Ox 99% on R/A; Weight 81.65 kg aa5 (R); Height 6 ft. 0 in. (182.88 cm) (R); Pain 0/10; 11:41 BP 151 / 85; Pulse 56; Resp 14; Pulse Ox 97% on R/A; tw2 12:35 BP 143 / 88; Pulse 56; Resp 17; Pulse Ox 98% on R/A; tw2 10:19 Body Mass Index 24.41 (81.65 kg, 182.88 cm) aa5 MDM: 10:30 Patient medically screened. [facility] 12:42 Data reviewed: vital signs, nurses notes, lab test result(s), EKG, radiologic studies, [facility] CT scan, plain films. Data interpreted: Pulse oximetry: on room air is 98 %. Interpretation: normal. Counseling: I had a detailed discussion with the patient and/or guardian regarding: the historical points, exam findings, and any diagnostic results supporting the discharge/admit diagnosis, lab results, radiology results, the need for outpatient follow up, a neurologist, to return to the emergency department if symptoms worsen or persist or if there are any questions or concerns that arise at home. ED course: Patient currently without symptoms. No acute findings on labs or ECG. VS stable. Will have patient f/u non emergently with neurology for possible MRI based on CT findings. No focal deficit or other neurologic findings at this time that warrants emergent MRI. Family and patient good with this and knows to come back if worse . 12/27 10:38 Order name: Basic Metabolic Panel; Complete Time: 12:00 12/27 10:38 Order name: CBC with Diff; Complete Time: 11:12/27 10:38 Order name: LFT's; Complete Time: 12:00 12/27 10:38 Order name: Magnesium; Complete Time: 12:00 12/27 10:38 Order name: NT PRO-BNP; Complete Time: 12:00 12/27 10:38 Order name: PT-INR; Complete Time: 11:52 12/27 10:38 Order name: Troponin (emerg Dept Use Only); Complete Time: 12:00 12/27 10:38 Order name: XRAY Chest (1 view); Complete Time: 11:52 12/27 10:38 Order name: EKG; Complete Time: 10:39 12/27 10:38 Order name: Cardiac monitoring; Complete Time: 11:12/27 10:38 Order name: EKG - Nurse/Tech; Complete Time: 11:12/27 10:38 Order name: IV Saline Lock; Complete Time: :12/27 10:38 Order name: CT Head Brain wo Cont; Complete Time: 11:12/27 10:38 Order name: Labs collected and sent; Complete Time: 12/27 10:38 Order name: O2 Per Protocol; Complete Time: 12/27 10:38 Order name: O2 Sat Monitoring; Complete Time: : Administered Medications: No medications were administered Disposition: 15:07 Co-signature as Attending Physician, Carlos Elliott MD I agree with the assessment and [facility] plan of care. Disposition: 12/28/19 12:43 Discharged to Home. Impression: Dizziness . - Condition is Stable. - Discharge Instructions: Dizziness. - Prescriptions for Meclizine 25 mg Oral Tablet - take 1 tablet by ORAL route every 8 hours As needed; 30 tablet. - Medication Reconciliation Form, Thank You Letter, Antibiotic Education, Prescription Opioid Use form. - Follow up: Tahir Lim MD; When: 2 - 3 days; Reason: Recheck today's complaints, Continuance of care, Re-evaluation by your physician. - Problem is new. - Symptoms have improved. Signatures: Dispatcher [employer] EDCarlos Plummer MD MD cha Calderon, Audri, RN RN aa5 Maciel Jaimes PA PA jr8 Brandon Carrington RN RN jl7 Corrections: (The following items were deleted from the chart) 11:27 11:24 Eyes: Pupils equal round and reactive to light, extra-ocular motions intact. Lids jr8 and lashes normal. Conjunctiva and sclera are non-icteric and not injected. Cornea within normal limits. Periorbital areas with no swelling, redness, or edema. ENT: Nares patent. No nasal discharge, no septal abnormalities noted. Tympanic membranes are normal and external auditory canals are clear. Oropharynx with no redness, swelling, or masses, exudates, or evidence of obstruction, uvula midline. Mucous membranes moist. Neck: Trachea midline, no thyromegaly or masses palpated, and no cervical lymphadenopathy. Supple, full range of motion without nuchal rigidity, or vertebral point tenderness. No Meningismus. Cardiovascular: Regular rate and rhythm with a normal S1 and S2. No gallops, murmurs, or rubs. Normal PMI, no JVD. No pulse deficits. Respiratory: Lungs have equal breath sounds bilaterally, clear to auscultation and percussion. No rales, rhonchi or wheezes noted. No increased work of breathing, no retractions or nasal flaring. Abdomen/GI: Soft, non-tender, with normal bowel sounds. No distension or tympany. No guarding or rebound. No evidence of tenderness throughout. Back: No spinal tenderness. No costovertebral tenderness. Full range of motion. Skin: Warm, dry with normal turgor. Normal color with no rashes, no lesions, and no evidence of cellulitis. MS/ Extremity: Pulses equal, no cyanosis. Neurovascular intact. Full, normal range of motion. Neuro: Awake and alert, GCS 15, oriented to person, place, time, and situation. Cranial nerves II-XII grossly intact. Motor strength 5/5 in all extremities. Sensory grossly intact. Cerebellar exam normal. Normal gait. jr8 13:01 12:43 12/28/2019 12:43 Discharged to Home. Impression: Dizziness . Condition is Stable. jl7 Forms are Medication Reconciliation Form, Thank You Letter, Antibiotic Education, Prescription Opioid Use. Follow up: Tahir Lim; When: 2 - 3 days; Reason: Recheck today's complaints, Continuance of care, Re-evaluation by your physician. Problem is new. Symptoms have improved. jr8
[2019-12-28] MEDS ORDERED: MECLIZINE HCL 12.5 MG TAB ONE (12:57)
[2019-12-28 13:18] VITALS: TEMP 99.2
[2019-12-28 13:21] VITALS: BP 143/88; O2SAT 98
== END 2019-12-28 13:01 | disposition home or self-care (01) ==
LOC: ER 10:11
DX: R42 Dizziness and giddiness (principal); G30.9 Alzheimer's disease, unspecified; F02.80 Dementia in other diseases classified elsewhere, unspecified severity, without behavioral disturbance, psychotic disturbance, mood disturbance, and anxiety; Z88.5 Allergy status to narcotic agent
CPT/HCPCS: 36415; 70450; 71045; 80048; 80076; 83735; 83880; 84484; 85025; 85610; 93005; 99284

== ENCOUNTER 2020-02-26 15:59 | Emergency (ER) | payer OTHER ==
--- OUTSIDE RECORDS SUMMARY | 2020-02-26 16:01 | XMS REPORT | Clinical Summary ---
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
--- OUTSIDE RECORDS SUMMARY | 2020-02-26 16:02 | XMS REPORT ---
:1945 Author Organization [facility] Care Team Providers Name Role Phone Zia [...] Medications Results No Known Results Summary Purpose [facility] Submission
--- OUTSIDE RECORDS SUMMARY | 2020-02-26 16:02 | XMS REPORT ---
[...] Status Dosage System Date Date Vitamin D3 [facility] 27[address] Active not defined Amiodarone HCl [facility] 08004111180 200 MG Orally Active 1 tablet Once a day Gabapentin [facility] [address]-08 Active not defined MethylPREDNISolone [facility] [address]-60 Active not defined Fish Oil [facility] 10346893386 1000 MG Orally Active 1 ca psule Once a day Aspir-81 [facility] 23381834836 81 MG Orally Active 1 tabl et Once a day Slow-Mag [facility] 17392473537 71.5-119 MG Active 2 table ts Orally Once a day Memantine HCl ER [facility] [address]-88 Active n ot defined Tramadol HCl [facility] 66702457432 50 MG Orally Apr 06, Active 1 tablet Once a day 2019 as needed Xarelto [facility] [address]-63 Active not defined Namenda XR [facility] 35248252128 28 MG Orally Active 1 ca psule Once a day Aricept [facility] 03554566900 5 MG Orally Active 1 tablet Twice a day at bedtime Turmeric Curcumin [facility] 59999873530 500 MG Orally Acti ve as directed Ginkgo Biloba [facility] [address]15-44[address] Active not defined Results No Known Results Summary Purpose eClinicalWorks Submission
--- OUTSIDE RECORDS SUMMARY | 2020-02-26 16:02 | XMS REPORT | Continuity of Care Document ---
:1945 Author Organization [facility] t Address [address] [place] [address] Care Team Providers Name Role Phone Darinel Geller Primary Care Physician Provider, Urgent Care Attending Clinician Unavailable Lab, Fam Pob I Attending Clinician Unavailable [...] St sciatic[facility] Pain, Pain, Diagnosis Active [facility], left knee, left [facility] Neuroma Neuroma Diagnosis [facility] Allergies, Adverse Reactions, Alerts Allergy Allergy Status Severity Reaction(s) Onset Inactive Treating Comm ents Source Name Type Date Date Clinician Propofol Propensi Active Other (See Akbar perez ty to Comments) 06-26 patient's Meth sudeep adverse 00:00: family st reaction 00 "doesnt s to do well" drug Morphine Propensi Active [place] ty to 4-11 Methodi adverse 00:00: st reaction 00 s to drug Family History Family Member Diagnosis Comments Start Date Stop Date Source Natural mother Cancer [facility] Natural mother Dementia [facility] Social History Social Habit Start Date Stop Date Quantity Comments Source Sex Assigned At [facility] Tobacco use and 2017-10-30 2017-10-30 Never used [facility] exposure 00:00:00 00:00:00 Alcohol intake 2017-10-30 2017-10-30 Current [facility] 00:00:00 00:00:00 non-drinker of alcohol (finding) Smoking Status Start Date Stop Date Source Never smoker [place] [facility] t Medications Ordered Filled Start Stop [...] in cyanocobala Yes QD Take by Alberto mcguire 100 MCG 8-15 mouth Methodi tablet 12:46: [...] l Outpati ent Clinics MethylPREDN MethylPREDN Yes Anthoyn not [facility] ISolone ISolone [facility] defined [facility] Memantine Memantine Yes Anthony not [facility] HCl ER HCl ER Shelley defined [facility] Xarelto Xarelto Yes Anthony not [facility] Immunizations Ordered Filled Immunization Date Status Comments [facility] e Immunization Name Name FLUZONE HIGH DOSE FLUZONE HIGH DOSE 2018-11-[address] [facility] OVER 65 00:[facility]:00 [facility] Procedures This patient has no known procedures. Plan of Care Planned Activity Planned Date Details Comments Source Future Scheduled 2019-10-17 INFLUENZA VACCINE [place]o maria c [facility] 00:00:00 [code = INFLUENZA VACCINE] Future Scheduled 2012-01-01 65+ PNEUMOCOCCAL [place] [facility] 00:00:00 VACCINE (1 of 1 - PPSV23) [code = 65+ PNEUMOCOCCAL VACCINE (1 of 1 - PPSV23)] Future Scheduled 1996 COLONOSCOPY SCREENING [facility] 00:00:00 [code = COLONOSCOPY SCREENING] Future Scheduled 1996 SHINGLES VACCINES (#1) H spencer [facility] 00:00:00 [code = SHINGLES VACCINES (#1)] Encounters Start End Encounter Admission Attending Care Care Encounter Source Date/Time Date/Time Type Type Clinicians Facility Department ID 2020-02-16 2020-02-16 Urgent Provider, [facility] [id number] 16:58:09 17:18:09 [place] [id number] [facility] [id number] [facility] [phone] nal [address] 2020-01-19 2020-01-19 Outpatient [facility] [id number] [facility] 2019-12-29 2019-12-29 Outpatient [facility] [id number] [facility] 2019-12-28 2019-12-28 Outpatient [facility] [id number] [facility] 2019-12-24 2019-12-24 Outpatient [facility] [id number] [facility] 2019-12-23 2019-12-23 Outpatient [facility] [id number] [facility] 2019-12-21 2019-12-21 Outpatient [facility] [id number] [facility] 2019-12-03 2019-12-03 Outpatient [facility] [id number] [facility] 2019-11-30 2019-11-30 [facility] [id number] 10:33:00 10:33:00 t [employer] [facility] ent Clinics 2019-11-26 2019-11-26 [facility] [id number] 09:30:00 09:30:00 t [facility] 2019-11-25 2019-11-25 [facility] [id number] 09:20:00 09:20:00 t [employer] [facility] ent Clinics 2019-11-19 2019-11-19 [facility] [id number] 14:33:00 14:33:00 t [place] [employer] [place] s - Drive [facility] Family Medicine l Medicine Outpati ent Clinics 2019-10-23 2019-10-23 [facility] [id number] 14:10:00 14:10:00 t Specialty/U Kathia kes - Specialty rology Memori a /Urology Clinic l Clinic Outpati ent Clinics 2019-10-21 2019-10-21 [facility] [id number] 10:30:00 10:30:00 t Specialty/U Kathia kes - Specialty rology Memori a /Urology Clinic l Clinic Outpati ent Clinics 2019-10-09 2019-10-09 [facility] [id number] 14:50:00 14:50:00 t [place] [employer] s - Drive [facility] Medicine l Medicine Outpati ent Clinics 2019-10-09 2019-10-09 [facility] [id number] 11:19:00 11:19:00 t [place] [employer] s - Drive [facility] Medicine l Medicine Outpati ent Clinics 2019-10-08 2019-10-08 [facility] [id number] 10:45:00 10:45:00 t [place] [employer] s - Drive [facility] Medicine l Medicine Outpati ent Clinics 2019-10-02 2019-10-02 [facility] [id number] 08:06:00 08:06:00 t [place] [employer] s - Drive [facility] Medicine l Medicine Outpati ent Clinics 2019-09-28 2019-09-28 [facility] [id number] 11:18:00 11:18:00 t [place] [employer] s - Drive [facility] Medicine l Medicine Outpati ent Clinics 2019-09-24 2019-09-24 [facility] [id number] 11:00:00 11:00:00 t [place] [employer] s - Drive [facility] l Medicine Outpati ent Clinics 2019-09-11 2019-09-11 Laboratory Lab, [facility] [id number] 08:53:12 09:13:12 Only [facility] [id number] [place] [id number] [facility] [id number] nal 044 Office [address] One 2019-07-27 2019-07-27 [facility] [id number] 09:00:00 09:00:00 t [facility] 2019-05-21 2019-05-21 [facility] [id number] 09:30:00 09:30:00 t [facility] 2019-05-21 2019-05-21 [facility] [id number] 08:00:00 08:00:00 t [employer] [facility] 2019-05-21 2019-05-21 [facility] [id number] 08:00:00 08:00:00 t [employer] [facility] 2019-04-21 2019-04-21 [facility] [id number] 15:30:00 15:30:00 t [employer] [facility] 2019-04-21 2019-04-21 [facility] [id number] 14:00:00 14:00:00 t Bone [facility] 2019-04-21 2019-04-21 [facility] [id number] 09:03:00 09:03:00 t Bone [facility] 2019-04-13 2019-04-13 [facility] [id number] 13:33:00 13:33:00 t [facility] 2019-04-13 2019-04-13 [facility] [id number] 09:41:00 09:41:00 t Bone [facility] of [facility] ent [facility] 2019-04-06 2019-04-06 [facility] [id number] 14:16:00 14:16:00 t [facility] 2019-03-31 2019-03-31 [facility] [id number] 10:30:00 10:30:00 t [facility] of [facility] ent Clinics 2019-03-16 2019-03-16 [facility] [id number] 14:27:00 14:27:00 t [facility] 2019-03-06 2019-03-06 [facility] [id number] 12:01:00 12:01:00 t [facility] of [facility] 2019-02-24 2019-02-24 [facility] [id number] 15:54:00 15:54:00 t [facility] 2019-02-24 2019-02-24 [facility] [id number] 15:11:00 15:11:00 t Bone [facility] of [facility] ent Clinics 2019-02-16 2019-02-16 [facility] [id number] 11:41:00 11:41:00 t Bone [facility] of [facility] ent Clinics 2019-02-11 2019-02-11 [facility] [id number] 10:30:00 10:30:00 t [facility] of [facility] ent Clinics 2019-01-19 2019-01-19 [facility] [id number] 10:59:00 10:59:00 t [facility] ent Clinics 2019-01-15 2019-01-15 [facility] [id number] 14:00:00 14:00:00 t [facility] ent Clinics 2019-01-15 2019-01-15 [facility] [id number] 10:00:00 10:00:00 t [facility] 2018-12-01 2018-12-01 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, 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 Lab [facility] [id number] 10:07:31 10:22:31 Visit Mattie [id number]2.686 [place] [id number] [facility] 2018-12-01 2018-12-01 Orders Doctor TONI [id number] 00:00:00 00:00:00 Only Unassigned, XOCHITL [id number] [place] [id number] [id number] 2018-11-19 2018-11-19 [facility] [id number] 09:45:00 09:45:00 t [facility] 2018-08-25 2018-08-25 [facility] [id number] 10:00:00 10:00:00 t Bone [facility] ent Clinics 2018-07-15 2018-07-15 [facility] [id number] 10:30:00 10:30:00 t [facility] ent Clinics 2018-06-09 2018-06-09 [facility] [id number] 12:00:00 12:00:00 t [facility] ent Clinics 2018-06-09 2018-06-09 [facility] [id number] 11:00:00 11:00:[address] [facility] 2018-05-22 2018-05-22 [facility] [id number] 15:30:00 15:30:00 t [facility] 2018-05-13 2018-05-13 [facility] [id number] 14:00:00 14:00:00 t [employer] [facility] 2018-04-24 2018-04-24 [facility] [id number] 08:30:00 08:30:00 t [facility] 2018-03-27 2018-03-27 [facility] [id number] 08:00:00 08:00:00 t [facility] 2018-03-21 2018-03-21 [facility] [id number] 08:30:00 08:30:00 t [facility] 2018-03-14 2018-03-14 [facility] [id number] 08:30:00 08:30:00 t [facility] 2018-02-27 2018-02-27 [facility] [id number] 08:30:00 08:30:00 t [facility] Results This patient has no known results.
--- OUTSIDE RECORDS SUMMARY | 2020-02-26 16:02 | XMS REPORT ---
:1945 Author Organization [facility] Address [address] [place] [place] [address] Care Team Providers Name Role Phone Jalyn Unavailable [phone] PROBLEMS Type Condition ICD9-CM [id number] Onset Condition SNOMED Code Notes Code Code Dates Status Problem Left sided M54.32 Active 94205720 sciatica Problem Primary M17.12 Active 607857245043100 osteoarthritis of left knee Problem Bilateral leg R25.2 Active 795982581 cramps Problem Uses hearing aid Z97.4 Active 017931795 Problem Dementia in other F02.80 Active 459712630 diseases classified elsewhere without behavioral disturbance Problem Constipation, K59.00 Active 61661673 unspecified constipation type Problem Alzheimer''s G30.9 Active 50644041 disease, unspecified Problem Renal mass N28.89 Active 072673038 Problem Pain, joint, M25.562 Active 18747608 knee, left Problem Atrial I48.91 Active 41520200 fibrillation, unspecified type 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 5666185598828 left knee replacement Problem Calculus of right N20.0 Active 83341856 kidney Problem Left renal mass N28.89 Active 052590008 ALLERGIES Allergen (clinical Drug/Non Drug Reaction Allergy Type Onset Date S tatus drug ingredient) Allergy documented on EMR morphine Unknown Non Drug Allergy Active ENCOUNTERS from 1945 to 2019-12-22 Encounter Location Date Provider Diagnosis [facility] [address], Theresa Gunderson Renal mas s N28.89 Specialty/Urology [address] [facility] [address] IMMUNIZATIONS Vaccine Route Administration Date Status Bupivicaine [place] Unknown Mar 21, 2018 Administered Bupivicaine [place] Unknown Mar 27, 2018 Administered Bupivicaine [place] Unknown Apr 24, 2018 Administered Tdap - Unknown Oct 25, 2015 Administered FluAD Unknown Dec 19, 2012 Administered Hyalgan 20 mg Unknown Mar 27, 2018 Administered FluAD Unknown Dec 04, 2013 Administered Bupivicaine [place] Unknown Feb 10, 2018 Administered FluAD Unknown Dec 21, 2015 Administered Bupivicaine [place] Unknown Mar 14, 2018 Administered FluAD Unknown [...] History Dementia in other diseases classified [facility] without behavioral disturbance Medical History Alzheimers disease, [...] 9:50:00 AM, [address], [place], [address], Provider Name:Theresa Gunderson, 10:30:00 AM, [address], [place], [address], Provider Name:Zia Whitehead, 2020-05-16 0 8:30:00 AM, [address], [place], [address], Provider Name:Zia Whitehead, 2020-05-25 0 9:30:00 AM, [address], [place], [address], Provider Name:Zia Ventura, 2020-05-25 1 0:00:00 AM, [address], [place], [address], Provider Name:Anthony Shelley, 2020-11-28 0 9:30:00 AM, [address] [facility] , [address], [place], [address], Follow Up:prn,2 - 3 DaysResults Insurance Providers Payer Name Payer Address Payer Insured Patient Coverage Cover age End Phone Name Relationship to Start Date [place] e Insured [employer] [address] [address] [phone] James Vivas self 2018 MEDICARE O [facility] [id number] [id number]
--- OUTSIDE RECORDS SUMMARY | 2020-02-26 16:03 | XMS REPORT | Summary of Care ---
:1945 Author Organization [facility] Address [address] [place] [address] Care Team Providers Name Role Phone Adam Whitehead Primary Care Provider Reason for Visit Reason Comments Fever x today Cough x today Headache x today Body Aches x today Encounter Details Date Type Department Care Team Description 02/16/2020 [facility] Leola Souza, TRACTOR EXPERT [address] [place], [place] [address] Viral illness (Primary Dx); Medicine - [place] Provider, [facility] Exposure to SARS-associated coronavirus [address] [place] [address] Allergies Active Allergy Reactions Severity Noted Date Comments Morphine Hallucinations 09/10/2018 Propofol Other - See comments 06/26/[address] dav[address]'s family "doesnt do well" documented as of this encounter (statuses as of 02/16/2020) Medications Medication Sig Dispensed Refills Start Date End Date Status donepezil 5 mg tablet Take 5 mg by mouth 0 Active daily. memantine (NAMENDA Take by mouth. 0 Active XR) 28 mg capsule TURMERIC ORAL Take 2 tablets by 0 Active mouth daily. Docosahexanoic Take 2 tablets by 0 Active Acid-Eicosapent (FISH mouth daily. OIL) 120-180 mg Cap Magnesium 250 mg Tab Take 1 tablet by 0 Active mouth daily. Ginkgo Biloba 120 mg Take 1 tablet by 0 Active Tab mouth daily. aspirin 81 mg Take 81 mg by mouth 0 Active chewable tablet every other day. vit B12/folic Take by mouth. 0 Active acid/B6/AA no.15 (VIT [id number]-PQ NO.15 ORAL) amiodarone 200 mg 0 01/04/2020 A ctive tablet amoxicillin 875 mg amoxicillin 875 mg 0 Active tablet tablet cefadroxil 500 mg cefadroxil 500 mg 0 Active capsule capsule cyanocobalamin 1,000 0 02/15/2020 Active mcg/mL injection Difluprednate Durezol 0.05 % eye 0 Active (DUREZOL) 0.05 % Drop drops doxycycline hyclate doxycycline hyclate 0 Active 100 mg capsule 100 mg capsule gabapentin 100 mg gabapentin 100 mg 0 Active capsule capsule HYDROcodone-acetamino hydrocodone 7.5 0 Active phen 7.5-325 mg per mg-acetaminophen tablet 325 mg tablet indomethacin 25 mg indomethacin 25 mg 0 Active capsule capsule meclizine 25 mg 0 12/29/2019 Act von tablet nepafenac (ILEVRO) Ilevro 0.3 % eye 0 Active 0.3 % DrpS drops,suspension polymyxin B polymyxin B sulfate 0 Active sulf-trimethoprim 10,000 10,000 unit- 1 mg/mL unit-trimethoprim 1 ophthalmic drops mg/mL eye drops predniSONE 20 mg prednisone 20 mg 0 Active tablet tablet rivastigmine 4.6 rivastigmine 4.6 0 Active mg/24 hr patch mg/24 hour transdermal patch tropicamide 1 % tropicamide 1 % eye 0 Active ophthalmic drops drops documented as of this encounter (statuses as of 02/16/2020) Active Problems No known active problemsdocumented as of this encounter (statuses as of 02/16/2020) Social History Tobacco Use Types Packs/Day Years Used Date Never Smoker Smokeless Tobacco: Never Used Alcohol Use Drinks/Week oz/Week Comments Not Currently Sex Assigned at Date Recorded Not on file COVID-19 Exposure Response Date Recorded In the last month, have you been in contact with No / Unsure 02/16/2020 5:08 PM [employer] someone who was confirmed or suspected to have Coronavirus / COVID-19? documented as of this encounter Last Filed Vital Signs Vital Sign Reading Time Taken Comments Blood Pressure 111/72 02/16/2020 5:09 PM [employer] Pulse 56 02/16/2020 5:09 PM [employer] Temperature 37.1 C (98.7 F) 02/16/2020 5:09 PM [employer] Respiratory Rate 16 02/16/2020 5:09 PM [employer] Oxygen Saturation 99% 02/16/2020 5:09 PM [employer] Inhaled Oxygen Concentration - - Weight 83.9 kg (185 lb) 02/16/2020 5:09 PM [employer] Height 182.9 cm (6') 02/16/2020 5:09 PM [employer] Body Mass Index 25.09 02/16/2020 5:09 PM [employer] documented in this encounter Progress Notes Jenna Araya FNP - 02/16/2020 5:00 PM CST COVID-19 Screening Clinic: [facility] Patient Name: Darrel Vivas Date of : 1945 74 year old Primary Care Physician: Zia Whitehead During this visit: Full PPE was used, mask, face shield, gown, and gloves Chief Complaint Chief Complaint Patient presents with Fever x today Cough x today Headache x today Body Aches x today HPI Patient presenting with for fevers of 99, cough, congestion, headaches, right eye redness and body aches that started today. has been giving OTC medications as needed. They are concerned for COVID due to thanksgiving dinner and another family member has symptoms. Denies any chest pain or SOB. No recent traveling. Past Medical History / Immunizations Past Medical History: Diagnosis Date Alzheimer disease Past Surgical History Past Surgical History: Procedure Laterality Date BACK SURGERY HERNIA REPAIR LAP,CHOLECYSTECTOMY [place] ANESTH,SURGERY OF SHOULDER Left [place] INJECT CARPAL TUNNEL surgery SYMPATHETIC NERVE BLOCK Left 09/15/2018 Surgeon: Alcon Cotton MD; Location: [facility] SYMPATHETIC NERVE BLOCK Left 12/08/2018 Surgeon: Alcon Cotton MD; Location: [facility] Allergies Allergies Allergen Reactions Morphine Hallucinations Propofol Other - See comments Per patient's family "doesnt do well" Review of Systems Review of Systems Constitutional: Positive for chills and fever. HENT: Positive for congestion and rhinorrhea. Eyes: Positive for redness. Respiratory: Positive for cough. Negative for shortness of breath. Cardiovascular: Negative for chest pain and palpitations. Gastrointestinal: Negative for abdominal pain, diarrhea, nausea and vomiting. Musculoskeletal: Positive for myalgias. Negative for back pain and gait problem. Skin: Negative for rash and wound. Neurological: Positive for headaches. Negative for weakness. Psychiatric/Behavioral: Negative for agitation and confusion. The patient is not nervous/anxious. All other systems reviewed and are negative. Physical Exam BP 111/72 (BP Location: Left arm, Patient Position: Sitting, BP CUFF SIZE: Adult Medium) | Pulse 56 | Temp 37.1 C (98.7 F) (Oral) | Resp 16 | Ht 6' (1.829 m) | Wt 185 lb (83.9 kg) | SpO2 99%| BMI 25.09 kg/m Physical Exam Vitals signs and nursing note reviewed. Constitutional: General: He is not in acute distress. Appearance: He is well-developed. He is not ill-appearing, toxic-appearing or diaphoretic. HENT: Head: Normocephalic and atraumatic. Right Ear: Hearing, tympanic membrane, ear canal and external ear normal. Left Ear: Hearing, tympanic membrane, ear canal and external ear normal. Nose: Nose normal. Right Sinus: No maxillary sinus tenderness or frontal sinus tenderness. Left Sinus: No maxillary sinus tenderness or frontal sinus tenderness. Mouth/Throat: Lips: [place]. Mouth: Mucous membranes are moist. Pharynx: Uvula midline. No oropharyngeal exudate. Tonsils: 1+ on the right. 1+ on the left. Eyes: General: Lids are normal. Right eye: No discharge. Left eye: No discharge. Conjunctiva/sclera: Right eye: Right conjunctiva is injected. Pupils: Pupils are equal, round, and reactive to light. Neck: Musculoskeletal: Normal range of motion and neck supple. Cardiovascular: Rate and Rhythm: Normal rate and regular rhythm. Heart sounds: Normal heart sounds. Pulmonary: Effort: Pulmonary effort is normal. No respiratory distress. Breath sounds: Normal breath sounds. No wheezing or rales. Chest: Chest wall: No tenderness. Musculoskeletal: Normal range of motion. General: No tenderness or deformity. Skin: General: Skin is warm and dry. Coloration: Skin is not pale. Findings: No erythema or rash. Neurological: Mental Status: He is alert and oriented to person, place, and time. Psychiatric: Speech: Speech normal. Behavior: Behavior normal. Behavior is cooperative. Thought Content: Thought content normal. Judgment: Judgment normal. Labs No results found for this or any previous visit (from the past 24 hour(s)). No results found. Orders and Treatments Orders Placed This Encounter Procedures COVID-19 (MOLECULAR TESTING NUCLEIC ACID AMPLIFICATION) Outpatient Encounter Medications as of 02/16/2020 Medication Sig amiodarone 200 mg tablet amoxicillin 875 mg tablet amoxicillin 875 mg tablet cefadroxil 500 mg capsule cefadroxil 500 mg capsule cyanocobalamin 1,000 mcg/mL injection Difluprednate (DUREZOL) 0.05 % Drop Durezol 0.05 % eye drops doxycycline hyclate 100 mg capsule doxycycline hyclate 100 mg capsule gabapentin 100 mg capsule gabapentin 100 mg capsule HYDROcodone-acetaminophen 7.5-325 mg per tablet hydrocodone 7.5 mg- acetaminophen 325 mg tablet indomethacin 25 mg capsule indomethacin 25 mg capsule meclizine 25 mg tablet nepafenac (ILEVRO) 0.3 % DrpS Ilevro 0.3 % eye drops,suspension polymyxin B sulf-trimethoprim 10,000 unit- 1 mg/mL ophthalmic drops polymyxin B sulfate 10,000 unit-trimethoprim 1 mg/mL eye drops predniSONE 20 mg tablet prednisone 20 mg tablet rivastigmine 4.6 mg/24 hr patch rivastigmine 4.6 mg/24 hour transdermal patch tropicamide 1 % ophthalmic drops tropicamide 1 % eye drops vit B12/folic acid/B6/AA no.15 (VIT [id number] NO.15 ORAL) Take by mouth. aspirin 81 mg chewable tablet Take 81 mg by mouth every other day. Docosahexanoic Acid-Eicosapent (FISH OIL) 120-180 mg Cap Take 2 tablets by mouth daily. donepezil 5 mg tablet Take 5 mg by mouth daily. Ginkgo Biloba 120 mg Tab Take 1 tablet by mouth daily. Magnesium 250 mg Tab Take 1 tablet by mouth daily. memantine (NAMENDA XR) 28 mg capsule Take by mouth. TURMERIC ORAL Take 2 tablets by mouth daily. No results found for this visit on 02/16/20. Diagnosis Patient well appearing, NAD noted on exam Patient speaking in complete sentences on exam. Physical exam otherwise unremarkable Vital signs WNL Darrel was seen today for fever, cough, headache and body aches. Diagnoses and all orders for this visit: Exposure to SARS-associated coronavirus - COVID-19 (MOLECULAR TESTING NUCLEIC ACID AMPLIFICATION); Future - COVID-19 (MOLECULAR TESTING NUCLEIC ACID AMPLIFICATION) Disposition & Follow Up - Discussed likely viral diagnosis and treatment plan with patient and . - pt advised on frequent effective handwashing - pt advised to increase fluid intake - advised to have the pt take OTC to treat symptoms. - Pt advised to administer Tylenol as per label recommendation as needed for pain or fever - AVS and Written/handout materials appropriate to problem and teaching provided. - advised to go to the nearest Emergency Department sooner for any new, worsening, persistent, or concerning symptoms - Patient verbalized understanding of all instructions EDUCATION: Handouts given: "What to do if you are sick with COVID-19" CDC information guide reviewed with the patient and handout given to patient Education given to self quarantine until results are back. Will notify patient with results. Patient states understanding and all questions answered. Plan of care, goals and medications discussed with patient. Patient voices understanding. Barriers to care: none Ability to manage care: good This visit did not involve counseling and coordination that comprised more than 50% of the visit time. RADHA Taylor 02/16/2020 5:35 PM [employer] documented in this encounter Plan of Treatment Name Type Priority Associated Diagnoses Order S chedule COVID-19 (MOLECULAR LAB Routine Exposure to Expected : 02/16/2020, TESTING SARS-associated Expires: 021 NUCLEIC ACID coronavirus AMPLIFICATION) Health Maintenance Due Date Last Done Comments HEPATITIS C (HCV) SCREEN 1945 Depression Screening 1958 DTaP,Tdap,and Td Vaccines (1 - Tdap) 1965 COLON CANCER SCREENING ANNUAL FIT/FOBT 1996 COLON CANCER SCREENING FIT DNA EVERY 3 YEARS 1996 COLON CANCER SCREENING SIGMOIDOSCOPY EVERY 5 YEARS 1996 COLONOSCOPY 1996 Colorectal Cancer Screening 1996 Zoster Recombinant Vaccine (SHINGRIX) (1 of 2) 1996 Medicare Wellness Visit 01/01/2012 PNEUMOCOCCAL VACCINES 65+ (1 of 1 - PPSV23) 01/01/2012 INFLUENZA VACCINE (#1) 2019 documented as of this encounter Results Not on filedocumented in this encounter Visit Diagnoses Diagnosis Viral illness - Primary Unspecified viral infection, in conditio ns classified elsewhere and of unspecified site Exposure to SARS-associated coronavirus documented in this encounter Additional Health Concerns Infection Onset Date Last Indicated Resolved Time COVID-19 Rule Out 02/16/2020 02/16/2020 documented as of this encounter Insurance Payer Benefit Plan / Subscriber ID Effective Dates Phone Addre ss Type Group HUMANA - HUMANA [id number] 2017-[facility] Adv MANAGED MEDICARE ERS t PPO MEDICARE ([place]) [place] [address] documented as of this encounter
--- OUTSIDE RECORDS SUMMARY | 2020-02-26 16:03 | XMS REPORT ---
:1945 Author Organization [facility] Address [address] 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 8944082338960 left knee replacement Problem Renal mass N28.89 Active 261476180 Problem Dementia in other F02.80 Active 644848979 diseases classified elsewhere without behavioral disturbance Problem Somnolence R40.0 Active 212707064 Problem Uses hearing aid Z97.4 Active 043518851 Problem Atrial I48.91 Active 78808764 fibrillation, unspecified type Problem Constipation, K59.00 Active 08931653 unspecified constipation type Problem Calculus of right N20.0 Active 60779925 kidney Problem Left renal mass N28.89 Active 485625332 ALLERGIES Allergen (clinical Drug/Non Drug Reaction Allergy Type Onset Date S tatus drug ingredient) Allergy documented on EMR morphine Unknown Non Drug Allergy Active ENCOUNTERS from 1945 to 2020-01-05 Encounter Location Date Provider Diagnosis [facility] [address], [place] [address] IMMUNIZATIONS Vaccine Route Administration Date Status Bupivicaine [place] Unknown Mar 21, 2018 Administered FluAD IM Intramuscular Dec 24, 2019 Administered Bupivicaine [place] Unknown Mar 27, 2018 Administered Bupivicaine [place] Unknown Apr 24, 2018 Administered Tdap - Unknown Oct 25, 2015 Administered FluAD Unknown Dec 19, 2012 Administered Hyalgan 20 mg Unknown Mar 27, 2018 Administered FluAD Unknown Dec 04, 2013 Administered Bupivicaine [place] Unknown Feb 10, 2018 Administered FluAD Unknown Dec 21, 2015 Administered Bupivicaine [place] Unknown Mar 14, 2018 Administered FluAD Unknown [...] Start Date End Date Status Frequency, Duration) Namenda XR 28 MG 1 capsule Orally Once a day Active Slow-Mag 71.5-119 MG 2 tablets Orally Once a day Active Vitamin D3 Active Aspir-81 81 MG 1 tablet Orally Once a day Active Ginkgo Biloba Active Aricept 5 MG 1 tablet at bedtime Orally A ctive Twice a day Xarelto Not-Taking Fish Oil 1000 MG 1 capsule Orally Once a day Active Memantine HCl ER Active Turmeric Curcumin 500 MG as directed Orally Active MethylPREDNISolone Not-Takin g Amiodarone HCl 200 MG 1 tablet Orally Once a day Active for 30 day(s) Gabapentin Not-Taking Tramadol HCl 50 MG 1 tablet as needed Orally Mar, Not-Taking Once a day PROCEDURES No Information RESULTS No Results REASON FOR VISIT Request for walker MEDICAL (GENERAL) HISTORY Type Description Date Medical History Dementia in other diseases classified [facility] without behavioral disturbance Medical History Alzheimers disease, [...] TREATMENT Next Appt Details Provider Name:Zia Whitehead, 2020-01-07 1 0:30:00 AM, [address], [address], [place], [address], Provider Name:Zia Whitehead, 2020-05-16 0 8:30:00 AM, [address], [address], [place], [address], Provider Name:Zia Whitehead 2020-05-25 0 9:30:00 AM, [address], [address], [place], [address], Provider Name:Zia Whitehead, 2020-05-25 1 0:00:00 AM, [address], [address], [place], [address], Provider Name:Anthony Shelley, 2020-11-28 0 9:30:00 AM, [address], [place], [address], Insurance Providers Payer Name Payer Address Payer Insured Patient Coverage Cover age End Phone Name Relationship to Start Date [place] e Insured HUMANA [address] [address] [phone] James Vivas self 2018 MEDICARE PPO [place] [id number] [place] [phone]
--- OUTSIDE RECORDS SUMMARY | 2020-02-26 16:03 | XMS REPORT ---
:1945 Author Organization [facility] Address 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 6484845135918 left knee replacement Problem Atrial I48.91 Active 92622661 fibrillation, unspecified type Problem Somnolence R40.0 Active 417979736 Problem Alzheimer''s G30.9 Active 32828487 disease, unspecified Problem 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 Problem Dementia in other F02.80 Active 523751714 diseases classified elsewhere without behavioral disturbance Problem Constipation, K59.00 Active 46206913 unspecified constipation type Problem Calculus of right N20.0 Active 70408960 kidney Problem Left renal mass N28.89 Active 159404540 Problem Renal mass N28.89 Active 784485000 ALLERGIES Allergen (clinical Drug/Non Drug Reaction Allergy Type Onset Date S tatus drug ingredient) Allergy documented on EMR morphine Unknown Non Drug Allergy Active ENCOUNTERS from 1945 to 2020-01-19 Encounter Location Date Provider Diagnosis [place] [address] [facility] Jan, Santos eller [facility] Specialty[facility]Urology [address] [place], [address]8 [address] [place] [address] (erectile dysfunction) of organic origin N52.9 IMMUNIZATIONS Vaccine Route Administration Date Status Bupivicaine [place] Unknown Mar 21, 2018 Administered FluAD IM Intramuscular Dec 24, 2019 Administered Bupivicaine [place] Unknown Mar 27, 2018 Administered Bupivicaine [place] Unknown Apr 24, 2018 Administered Tdap - Unknown Oct 25, 2015 Administered FluAD Unknown Dec 19, 2012 Administered Hyalgan 20 mg Unknown Mar 27, 2018 Administered FluAD Unknown Dec 04, 2013 Administered Bupivicaine [place] Unknown Feb 10, 2018 Administered FluAD Unknown Dec 21, 2015 Administered Bupivicaine [place] Unknown Mar 14, 2018 Administered FluAD Unknown [...] some way Alcohol Screen Question Answer Notes Points 0 Points 0 Interpretation Negative Tobacco Use/Smoking Question Answer Notes Are you a never smoker Additional Findings: Tobacco Non-User Current non-smoker Tobacco use other than smoking: Question Answer Notes Are you an other tobacco user? No REASON FOR REFERRAL No Information VITAL SIGNS Height 70 in Jan, Weight 185.6 lbs Jan, Temperature 98.3 degrees Fahrenheit Jan, BMI 26.63 kg/m2 Jan, Oximetry 96 % Jan, Blood pressure systolic 132 mm Hg Jan, Blood pressure diastolic 78 mm Hg Jan, MEDICATIONS Medication SIG (Take, Route, Start Date End Date Status Frequency, Duration) Xarelto Not-Taking Aspir-81 81 MG 1 tablet Orally Once a day Active Tramadol HCl 50 MG 1 tablet as needed Orally Mar, Not-Taking Once a day Namenda XR 28 MG 1 capsule Orally Once a day Active Memantine HCl ER Active MethylPREDNISolone Not-Takin g Aricept 5 MG 1 tablet at bedtime Orally A ctive Twice a day Slow-Mag 71.5-119 MG 2 tablets Orally Once a day Active Gabapentin Not-Taking Vitamin D3 Active Fish Oil 1000 MG 1 capsule Orally Once a day Active Amiodarone HCl 200 MG 1 tablet Orally Once a day Active for 30 day(s) Ginkgo Biloba Active Turmeric Curcumin 500 MG as directed Orally Active PROCEDURES No Information RESULTS No Results REASON FOR VISIT MASS KIDNEY/PER DR WHITEHEAD MEDICAL (GENERAL) HISTORY Type Description Date Medical History Dementia in other diseases classified [facility] without behavioral disturbance Medical History Alzheimers disease, unspecified Medical History Bilateral leg cramps Medical History Uses hearing aid Medical History :BLOOD THINNERS-ASPIRIN Surgical History Hernia 2016 Surgical History Shoulder surgery 2012 Surgical History Back surgery 2016 Surgical History Gallbladder 2016 Surgical History Left total knee arthroplasty.-metal 03/19 Hospitalization History Left total knee arthroplasty. 2019 Goals Section No Information Health Concerns No Information MEDICAL EQUIPMENT No Information MENTAL STATUS No Information FUNCTIONAL STATUS No Information ASSESSMENTS Encounter Date Diagnosis Notes Jan, Left renal mass (ICD-10 - N28.89) Jan, ED (erectile dysfunction) of organic adolfo gin (ICD-10 - N52.9) PLAN OF TREATMENT Treatment Notes Test Name Order Date URINALYSIS AUTO W/O SCOPE (75034) 2020-01-19 Renal Ultrasound-Complete 2020-01-19 Next Appt Details Provider Name:Zia Whitehead, 2020-05-16 0 8:30:00 AM, [facility] [address] [facility] [address], [place], [address], Provider Name:Zia Whitehead, 2020-05-25 0 9:30:00 AM, [address], [facility] [address], [place], [address], Provider Name:Zia Whitehead, 2020-05-25 1 0:00:00 AM, [address], [facility] [address], [place], [address], Provider Name:Santos Shannon, 2020-06-20 10:15:00 AM, [address] [facility], [address], [place], [address], Provider Name:Anthony Shelley, 2020-11-28 0 9:30:00 AM, [address] [place] [address], [address], [place], [address], Insurance Providers Payer Name Payer Address Payer Insured Patient Coverage Cover age End Phone Name Relationship to Start Date [place] e Insured HUMANA [address] [address] [phone] James Vivas self 2018 MEDICARE [place] [id number] [place] [phone]
--- OUTSIDE RECORDS SUMMARY | 2020-02-26 16:03 | XMS REPORT ---
:1945 Author Organization [facility] Address 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 0382795160382 left knee replacement Problem Renal mass N28.89 Active 028523517 Problem Dementia in other F02.80 Active 199234065 diseases classified elsewhere without behavioral disturbance Problem Somnolence R40.0 Active 541356613 Problem Uses hearing aid Z97.4 Active 909339600 Problem Atrial I48.91 Active 16579275 fibrillation, unspecified type Problem Constipation, K59.00 Active 49163238 unspecified constipation type Problem Calculus of right N20.0 Active 96590013 kidney Problem Left renal mass N28.89 Active 649935219 ALLERGIES Allergen (clinical Drug/Non Drug Reaction Allergy Type Onset Date S tatus drug ingredient) Allergy documented on EMR morphine Unknown Non Drug Allergy Active ENCOUNTERS from 1945 to 2019-12-28 Encounter Location Date Provider Diagnosis [facility] [address] Dec, Zia Whitehead Nandini tigo R42 ; Family Medicine [address] ; [place] [address] Fatigue, unspe cified type R53.83 and At risk for fallin g Z91.81 IMMUNIZATIONS Vaccine Route Administration Date Status Bupivicaine [place] Unknown Mar 21, 2018 Administered FluAD IM Intramuscular Dec 24, 2019 Administered Bupivicaine [place] Unknown Mar 27, 2018 Administered Bupivicaine [place] Unknown Apr 24, 2018 Administered Tdap - Unknown Oct 25, 2015 Administered FluAD Unknown Dec 19, 2012 Administered Hyalgan 20 mg Unknown Mar 27, 2018 Administered FluAD Unknown Dec 04, 2013 Administered Bupivicaine [place] Unknown Feb 10, 2018 Administered FluAD Unknown Dec 21, 2015 Administered Bupivicaine [place] Unknown Mar 14, 2018 Administered FluAD Unknown [...] VITAL SIGNS Height 70 in Dec, Weight 185.6 lbs Dec, Temperature 97.7 degrees Fahrenheit Dec, BMI 26.63 kg/m2 Dec, Oximetry 98 % Dec, Respiratory Rate 16 /min Dec, Blood pressure systolic 140 mm Hg Dec, Blood pressure diastolic 77 mm Hg Dec, MEDICATIONS Medication SIG (Take, Route, Start Date End Date Status Frequency, Duration) Gabapentin Not-Taking Amiodarone HCl 200 MG 1 tablet Orally Once a day Active for 30 day(s) Aspir-81 81 MG 1 tablet Orally Once a day Active Turmeric Curcumin 500 MG as directed Orally Active Slow-Mag 71.5-119 MG 2 tablets Orally Once a day Active Aricept 5 MG 1 tablet at bedtime Orally A ctive Twice a day Namenda XR 28 MG 1 capsule Orally Once a day Active Vitamin D3 Active Fish Oil 1000 MG 1 capsule Orally Once a day Active MethylPREDNISolone Not-Takin g Tramadol HCl 50 MG 1 tablet as needed Orally Mar, Not-Taking Once a day Ginkgo Biloba Active Memantine HCl ER Active Xarelto Not-Taking PROCEDURES No Information RESULTS No Results REASON FOR VISIT Dizziness (possible virtigo) [phone] MEDICAL (GENERAL) HISTORY Type Description Date Medical History Dementia in other diseases [facility] Medical History Alzheimers disease, [...] Information ASSESSMENTS Encounter Date Diagnosis Notes Dec, Somnolence (ICD-10 - R40.0) Dec, Vertigo (ICD-10 - R42) Dec, At risk for falling (ICD-10 - Z91.81) Dec, Fatigue, unspecified type (ICD-10 - R53. 83) PLAN OF TREATMENT Treatment Notes Assessment Notes Clinical Notes Vertigo Discussed extensively with patient and w mihaela regarding differential diagnosis. At th is time it would be best if patient were to be eval uated in the ED for a stat CT head and basic bloo d work. and patient agreeable with plan. D ue to worsening of symptoms along with somnole nce for need immediate imaging. Also encouraged patient to make appointment with neurology. At risk for falling . Fall preventions discussed Next Appt Details prn Reason: Provider Name:Theresa Gunderson, 10:00:00 AM, [address], [place], [address], Provider Name:Zia Whitehead 2020-01-07 1 0:30:00 AM, [address], [place], [address], Provider Name:Zia Whitehead, 2020-05-16 0 8:30:00 AM, [address], [place], [address], Provider Name:Zia Whitehead, 2020-05-25 0 9:30:00 AM, [address], [place], [address], Provider Name:Zia Whitehead, 2020-05-25 1 0:00:00 AM, [address], [place], [address], Provider Name:Anthony Shelley, 2020-11-28 0 9:30:00 AM, [address], [place], [address], Insurance Providers Payer Name Payer Address Payer Insured Patient Coverage Cover age End Phone Name Relationship to Start Date [place] e Insured [employer] [address] [address] [phone] James Vivas self 2018 MEDICARE PPO [place] [id number] [place] [phone]
--- OUTSIDE RECORDS SUMMARY | 2020-02-26 16:03 | XMS REPORT ---
:1945 Author Organization [facility] Address 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 Active 593565703 diseases classified elsewhere without behavioral disturbance Problem Constipation, K59.00 Active 70128424 unspecified constipation type Problem Alzheimer''s G30.9 Active 48666714 disease, unspecified Problem Renal mass N28.89 Active 535916589 Problem Pain, joint, M25.562 Active 33696149 knee, left Problem Atrial I48.91 Active 20477631 fibrillation, unspecified type 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 7523400904010 left knee replacement Problem Calculus of right N20.0 Active 30174853 kidney Problem Left renal mass N28.89 Active 864509008 ALLERGIES Allergen (clinical Drug/Non Drug Reaction Allergy Type Onset Date S tatus drug ingredient) Allergy documented on EMR morphine Unknown Non Drug Allergy Active ENCOUNTERS from 1945 to 2019-12-23 Encounter Location Date Provider Diagnosis [place] [address] [facility] [address], Theresa Gunderson [facility] [address] IMMUNIZATIONS Vaccine Route Administration Date Status Bupivicaine [place] Unknown Mar 21, 2018 Administered Bupivicaine [place] Unknown Mar 27, 2018 Administered Bupivicaine [place] Unknown Apr 24, 2018 Administered Tdap - Unknown Oct 25, 2015 Administered FluAD Unknown Dec 19, 2012 Administered Hyalgan 20 mg Unknown Mar 27, 2018 Administered FluAD Unknown Dec 04, 2013 Administered Bupivicaine [place] Unknown Feb 10, 2018 Administered FluAD Unknown Dec 21, 2015 Administered Bupivicaine [place] Unknown Mar 14, 2018 Administered FluAD Unknown [...] History Dementia in other diseases classified [facility] without behavioral disturbance Medical History Alzheimers [...] 9:50:00 AM, [address], [place], [address], Provider Name:Theresa Gunderson, 10:00:00 AM, [address], [place], [address], Provider Name:Zia Whitehead, 2020-05-16 0 8:30:00 AM, [address], [place], [address], Provider Name:Zia Whitehead, 2020-05-25 0 9:30:00 AM, [address], [place], [address], Provider Name:Zia Ventura, 2020-05-25 1 0:00:00 AM, [address], [place], [address], Provider Name:Anthony Shelley, 2020-11-28 0 9:30:00 AM, [address] [facility] [address], [place], [address], Insurance Providers Payer Name Payer Address Payer Insured Patient Coverage Cover age End Phone Name Relationship to Start Date [place] e Insured [employer] [address] [address] [phone] James Vivas self 2018 MEDICARE PPO [place] [id number] [place] [phone]
--- OUTSIDE RECORDS SUMMARY | 2020-02-26 16:03 | XMS REPORT ---
:1945 Author Organization [facility] Address 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.80 Active 129259422 diseases classified elsewhere without behavioral disturbance Problem Constipation, K59.00 Active 80963691 unspecified constipation type Problem Alzheimer''s G30.9 Active 75590049 disease, unspecified Problem Renal mass N28.89 Active 723509353 Problem Pain, joint, M25.562 Active 62355689 knee, left Problem Atrial I48.91 Active 84271568 fibrillation, unspecified type 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 3943906897790 left knee replacement Problem Calculus of right N20.0 Active 85040428 kidney Problem Left renal mass N28.89 Active 980777368 ALLERGIES Allergen (clinical Drug/Non Drug Reaction Allergy Type Onset Date S tatus drug ingredient) Allergy documented on EMR morphine Unknown Non Drug Allergy Active ENCOUNTERS from 1945 to 2019-12-24 Encounter Location Date Provider Diagnosis [facility] [address], Zia Whitehead Lef t renal mass Family Medicine [address] [place], [address] ; [place] [address] fibrillation, unspecified typ e I48.91 ; Blood [...] IMMUNIZATIONS Vaccine Route Administration Date Status Bupivicaine [place] Unknown Mar 21, 2018 Administered FluAD IM Intramuscular Dec 24, 2019 Administered Bupivicaine [place] Unknown Mar 27, 2018 Administered Bupivicaine [place] Unknown Apr 24, 2018 Administered Tdap - Unknown Oct 25, 2015 Administered FluAD Unknown Dec 19, 2012 Administered Hyalgan 20 mg Unknown Mar 27, 2018 Administered FluAD Unknown Dec 04, 2013 Administered Bupivicaine [place] Unknown Feb 10, 2018 Administered FluAD Unknown Dec 21, 2015 Administered Bupivicaine [place] Unknown Mar 14, 2018 Administered FluAD Unknown [...] 10:00:00 AM, [address], [place], [address], Provider Name:Zia Whitehead 2020-01-07 1 0:30:00 AM, [address], [place], [address], Provider Name:Zia Whitehead, 2020-05-16 0 8:30:00 AM, [address], [place], [address], Provider Name:Zia Whitehead, 2020-05-25 0 9:30:00 AM, [address], [place], [address], Provider Name:Zia Whitehead, 2020-05-25 1 0:00:00 AM, [address], [place], [address], Provider Name:Anthony Shelley, 2020-11-28 0 9:30:00 AM, [address], [place], [address], Insurance Providers Payer Name Payer Address Payer Insured Patient Coverage Cover age End Phone Name Relationship to Start Date [place] Ins[place] [employer] [address] [address] [phone] James Vivas self 2018 MEDICARE PPO [place] [id number] [place] [phone]
[2020-02-26 17:24] LABS: Basophils % 0.4 % (0-1.3); Hematocrit 41.7 % (39.6-49.0); MPV 8.1 fL (7.6-11.3)
[2020-02-26 17:43] LABS: Protime INR 1.01
[2020-02-26 17:50] LABS: ALT/SGPT 56 U/L (12-78); AST/SGOT 51 U/L (15-37); Albumin 3.1 g/dL (3.4-5.0); Alkaline Phosphatase 66 U/L (45-117); Amylase 34 U/L (25-115); BUN Blood Urea Nitrogen 26 mg/dL (7-18); Bicarbonate 24 mmol/L (21-32); Bilirubin Direct 0.3 mg/dL (0-0.2); Bilirubin Total 0.8 mg/dL (0.2-1.0); CKMB Creatine Kinase MB 1.6 ng/mL (0.3-3.6); Creatine Phosphokinase 154 U/L (39-308); Glucose Level 95 mg/dL (74-106); Lipase 140 U/L (73-393); Protein, Total 6.9 g/dL (6.4-8.2); Sodium Level 136 mmol/L (136-145); Troponin (Emerg Dept Use Only) < 0.02 ng/mL (0.0-0.045)
--- NOTE | 2020-02-26 20:09 | RAD REPORT ---
EXAM DESCRIPTION: CT - CTHCSPWOC - 02/26/2020 7:46 pm CLINICAL HISTORY: s/p fall and head injury, headache, neck pain, history of COVID positive COMPARISON: Head Brain Wo Cont dated 12/28/2019 TECHNIQUE: Axial 5 mm thick images of the head were obtained. Axial 2 mm thick images of the cervic al spine were obtained with sagittal and coronal reconstruction images generated and reviewed. All CT scans are performed using dose optimization technique as appropriate and may include automated exposure control or mA/KV adjustment according to patient size. FINDINGS: No intracranial hemorrhage, mass, edema or acute intracranial finding. No suspicion for ac [place] infarction. No cortical edema or sulcal effacement. Patient has mild to moderate atrophy. Ventric les are in proportion to the volume loss. Advanced chronic ischemic changes are present throughout th e cerebral white matter with involvement of the basal ganglia, thalamus and probably brainstem as wel l. Mastoid air cells and paranasal sinuses are clear. No globe or orbit abnormality seen. Cervical bodies are normal in height. There is very slight retrolisthesis of C4 on C5. All disc space s are narrowed except for C2-3. No acute fractures seen. Facet joint degenerative changes are present at multiple levels. Uncovertebral joint hypertrophy is also present. Significant left foraminal sten osis present at C3-4 with right greater than left foraminal stenosis at C4-5. Moderately severe bilat eral C5-6 and C6-7 foraminal stenosis. C7-T1 foraminal stenosis is mild. Bone density at the tip of t he T1 spinous process may be developmental variant or represent sequela of a far remote T1 spinous pr ocess fracture. The bones segment or fragment at the posterior tip of the T1 spinous process is corti cated. Central canal detail is inherently limited. No paraspinal mass or hematoma. IMPRESSION: No hemorrhage, edema or acute cortical based infarction. No acute intracranial finding s een. Patient has advanced chronic ischemic change throughout the cerebral hemispheres along with mild to m oderate atrophy. Advanced cervical spine degenerative change without acute finding.
--- NOTE | 2020-02-26 20:59 | RAD REPORT ---
EXAM DESCRIPTION: RAD - Chest Single View - 02/26/2020 6:34 pm CLINICAL HISTORY: FEVERCOVID positive COMPARISON: December 27 TECHNIQUE: AP portable chest image was obtained 02/26/2020 6:34 pm . FINDINGS: No focal consolidation or mass. Costochondral calcifications are seen. No ground-glass opa cities are confirmed on this study. The interstitial pattern is not clearly different from the Octobe r examination. Heart and vasculature are normal. No measurable pleural effusion and no pneumothorax. No acute bony abnormality seen. No acute aortic findings suspected. IMPRESSION: No acute cardiopulmonary process. Portable film findings are not suspicious for COVID-19 pneumonia. However, CT imaging is much more se nsitive in identifying mild or early COVID-19 pneumonia findings[address] Follow-up CT imaging can be obtaine d if it would alter medical management.
--- NOTE | 2020-02-26 21:07 | ER ---
Nurse's Notes [facility] Name: Darrel Vivas Age: 74 yrs Sex: Male : 1945 Arrival Date: 02/26/2020 Time: 16:03 Bed 15 Private MD: Diagnosis: Dementia in other diseases classified elsewhere;Contusion of unspecified part of head;Coronavirus infection, unspecified Presentation: 02/25 16:15 Chief complaint: Patient's son or daughter states: tested pos. for covid on 02/16/20 and em ever since has been more weak, also reports fever, had a fall on Saturday and has been acting more altered than normal since falling, denies injury, pt A\T\Ox2 [id number] states he is close to base line compared to what he normally is. Coronavirus screen: Client reports previous positive COVID test result. Date of collection: February 16, 2020. Ebola Screen: Patient negative for fever greater than or equal to 101.5 degrees Fahrenheit, and additional compatible Ebola Virus Disease symptoms Patient denies exposure to infectious person. Patient denies travel to an Ebola-affected area in the 21 days before illness onset. No symptoms or risks identified at this time. Initial Sepsis Screen: Does the patient meet any 2 criteria? Systolic BP < 90 mmHg. Altered Mental Status. Yes Does the patient have a suspected source of infection? Yes: Productive cough/pneumonia. Risk Assessment: Do you want to hurt yourself or someone else? Patient reports no desire to harm self or others. Onset of symptoms was February 16, 2020. 16:15 Method Of Arrival: Wheelchair em 16:15 Acuity: UDAY 2 em Historical: - Allergies: 16:23 Morphine; em - PMHx: 16:23 Alzheimers; em 16:24 Seizures; em - PSHx: 16:23 L shoulder repair; back sx; Cholecystectomy; Hernia repair; L knee replacement; em - Immunization history:: Adult Immunizations up to date. - Social history:: Smoking status: Patient denies any tobacco usage or history of. Screenin:27 Abuse screen: Denies threats or abuse. Nutritional screening: No deficits noted. ea Tuberculosis screening: No symptoms or risk factors identified. Fall Risk IV access (20 points). Assessment: 17:40 General: Appears comfortable, Behavior is calm, cooperative, appropriate for age. Pain: aa5 Denies pain. Neuro: Level of Consciousness is awake, obeys commands, confused, Oriented to person, Intelligence Officer Basic are weak bilaterally Moves all extremities. Speech is normal, Facial symmetry appears normal. Cardiovascular: Heart tones S1 S2 present Rhythm is regular. Respiratory: Airway is patent Respiratory effort is even, unlabored, Respiratory pattern is regular, symmetrical. GI: Pt's [id number] reports decreased appetite over the last few days, denies nausea/vomiting. Unknown if diarrhea. : No signs and/or symptoms were reported regarding the genitourinary system. EENT: No signs and/or symptoms were reported regarding the EENT system. Derm: Skin is pink, warm \T\ dry. Musculoskeletal: Range of motion: intact in all extremities. 18:30 Reassessment: Pt sitting up in bed. Pt is A\T\O x person, equal and unlabored aa5 respirations, skin is pink/warm/dry. . 19:30 General: Appears in no apparent distress. Behavior is appropriate for age. Pain: Denies ea pain. Neuro: Level of Consciousness is awake, alert, obeys commands, Oriented to person, place. Respiratory: Airway is patent Respiratory effort is even, unlabored, Respiratory pattern is regular, symmetrical. Derm: Skin is dry, Skin is normal, Skin temperature is warm. 19:32 Reassessment: Pt taken to CT. ea 20:20 Reassessment: Pt returned from CT. Alert and oriented x 2. Respirations even and sg unlabored, chest expansions even and symmetrical. 21:39 Reassessment: Patient and/or family updated on plan of care and expected duration. Pain ea level reassessed. Patient is alert, oriented x 3, equal unlabored respirations, skin warm/dry/pink. Discharge instruction given to patient and family, verbalized the understanding of instruction. Pt left ED via wheelchair accompanied by family. Vital Signs: 16:15 BP 82 / 61; Pulse 68; Resp 18; Temp 99.7(O); Pulse Ox 94% on R/A; Weight 79.38 kg; em Height 5 ft. 10 in. (177.80 cm); Pain 0/10; 17:15 BP 105 / 73; Pulse 57; Resp 16 S; Pulse Ox 96% on R/A; dh4 17:30 BP 98 / 65; Pulse 57; Resp 18 S; Pulse Ox 96% on R/A; dh4 18:14 BP 100 / 65; Pulse 53; Resp 16 S; Temp 97.8(O); Pulse Ox 96% on R/A; aa5 18:20 BP 106 / 55; aa5 18:40 BP 94 / 61; Pulse 52; Resp 16 S; Pulse Ox 96% on R/A; aa5 19:13 BP 95 / 69; Pulse 51; Resp 18; Pulse Ox 93% on R/A; ea 21:30 BP 101 / 64; Pulse 55; Resp 18; Temp 98; Pulse Ox 97% on R/A; ea 16:15 Body Mass Index 25.11 (79.38 kg, 177.80 cm) em ED Course: 16:03 Patient arrived in ED. ag5 16:22 Triage completed. em 16:24 Arm band placed on. em 17:03 Ayde Zendejas, RN is Primary Nurse. aa5 17:13 Initial lab(s) drawn, by ak, sent to lab. First set of blood cultures drawn by ak. 3 Inserted saline lock: 20 gauge in right forearm, using aseptic technique. Blood collected. 17:15 Second set of blood cultures drawn by ak. 3 17:18 EKG done, by ED staff, reviewed by Ramon Tineo MD. 3 17:40 Ramon Tineo MD is Attending Physician. kdr 17:40 Patient has correct armband on for positive identification. Placed in gown. Bed in low aa5 position. Call light in reach. Side rails up X2. Adult w/ patient. bus monitor on. Pulse ox on. NIBP on. 18:34 Chest Single View XRAY In Process Unspecified. EDMS 19:00 Report given to DEDE Chappell. aa5 19:30 Patient has correct armband on for positive identification. Bed in low position. Call ea light in reach. Side rails up X2. Adult w/ patient. 19:31 Patient maintains SpO2 saturation greater than 95% on room air. Thermoregulation: warm ea blanket given to patient. 19:46 CT Head C Spine In Process Unspecified. EDMS 21:39 No provider procedures requiring assistance completed. IV discontinued, intact, ea bleeding controlled, No redness/swelling at site. Pressure dressing applied. Administered Medications: 17:50 Drug: NS 0.9% 500 ml Route: IV; Rate: bolus; Site: right forearm; 5 19:55 Follow up: Response: No adverse reaction; IV Status: Completed infusion; IV Intake: ea 500ml 18:06 Not Given (Physician Discretion): NS 0.9% (30 ml/kg) 30 ml/kg IV at bolus once; Sepsis aa5 Protocol Intake: 19:55 IV: 500ml; Total: 500ml. ea Outcome: 21:07 Discharge ordered by . [facility] 21:39 Discharged to home ambulatory, with family. ea 21:39 Condition: stable 21:39 Discharge instructions given to patient, family, Instructed on discharge instructions, follow up and referral plans. medication usage, Demonstrated understanding of instructions, follow-up care, medications, Prescriptions given X 2. 21:41 Patient left the ED. ea Signatures: Dispatcher [employer] EDCarlos Mccullough RN RN sg Rittger, Kevin, MD MD kdr Munoz, Edgar RN Ayde Jacob RN RN [facility] Julia Wright [facility] Misti Zapien RN RN ea Wadley, Terrence, MD MD [facility] Pranav [facility] Dimas Briones [facility] Corrections: (The following items were deleted from the chart) 19:41 17:40 GI: No signs and/or symptoms were reported involving the gastrointestinal system. 5 5
--- NOTE | 2020-02-26 21:07 | EDPHYS ---
Physician Documentation [facility] Name: Darrel Vivas Age: 74 yrs Sex: Male : 1945 Arrival Date: 02/26/2020 Time: 16:03 Bed 15 Private MD: ED Physician Ramon Tineo HPI: 02/25 18:44 This 74 yrs old Male presents to ER via Wheelchair with complaints of Fever, kdr COVID+, Fall Injury. 18:45 The patient was diagnosed with COVID on the second of this month. He fell several days kdr ago and had been acting differently for two days though today, he seems to be backwinder to his baseline. They remain concerned though that he may be worsening from either the COVID or his head injury. Onset: The symptoms/episode began/occurred gradually, 3 day(s) ago. Severity of symptoms: At their worst the symptoms were very mild mild in the emergency department the symptoms are unchanged. The patient has not experienced similar symptoms in the past. The patient has not recently seen a physician. Historical: - Allergies: 16:23 Morphine; em - PMHx: 16:23 Alzheimers; em 16:24 Seizures; em - PSHx: 16:23 L shoulder repair; back sx; Cholecystectomy; Hernia repair; L knee replacement; em - Immunization history:: Adult Immunizations up to date. - Social history:: Smoking status: Patient denies any tobacco usage or history of. ROS: 18:54 Constitutional: Negative for chills, and weight loss - has had subjective fever Eyes: kdr Negative for injury, pain, redness, and discharge, Neck: Negative for injury, pain, and swelling, Cardiovascular: Negative for chest pain, palpitations, and edema, Respiratory: Negative for shortness of breath, cough, wheezing, and pleuritic chest pain, Abdomen/GI: Negative for abdominal pain, nausea, vomiting, diarrhea, and constipation, Back: Negative for injury and pain, : Negative for injury, bleeding, discharge, and swelling, MS/Extremity: Negative for injury and deformity, Skin: Negative for injury, rash, and discoloration, Neuro: Negative for headache, weakness, numbness, tingling, and seizure activity. Psych: Negative for depression, anxiety, suicide ideation, homicidal ideation, and hallucinations, Allergy/Immunology: Negative for hives, rash, and allergies, Endocrine: Negative for neck swelling, polydipsia, polyuria, polyphagia, and marked weight changes, Hematologic/Lymphatic: Negative for swollen nodes, abnormal bleeding, and unusual bruising. 18:54 Neuro: Positive for weakness, The patient has baseline dementia which waxes and wanes. Exam: 18:54 Constitutional: This is a well developed, well nourished patient who is awake, alert, kdr and in no acute distress. Head/Face: Normocephalic, atraumatic. Eyes: Pupils equal round and reactive to light, extra-ocular motions intact. Lids and lashes normal. Conjunctiva and sclera are non-icteric and not injected. Cornea within normal limits. Periorbital areas with no swelling, redness, or edema. Neck: Trachea midline, no thyromegaly or masses palpated, and no cervical lymphadenopathy. Supple, full range of motion without nuchal rigidity, or vertebral point tenderness. No Meningismus. Chest/axilla: Normal chest wall appearance and motion. Nontender with no deformity. No lesions are appreciated. Back: No spinal tenderness. No costovertebral tenderness. Full range of motion. Skin: Warm, dry with normal turgor. Normal color with no rashes, no lesions, and no evidence of cellulitis. MS/ Extremity: Pulses equal, no cyanosis. Neurovascular intact. Full, normal range of motion. 18:54 Cardiovascular: Rate: normal, Rhythm: regular, Edema: is not appreciated, JVD: is not appreciated. 18:54 Respiratory: the patient does not display signs of respiratory distress, Respirations: normal. 18:54 Abdomen/GI: Inspection: abdomen appears normal, Palpation: abdomen is soft and non-tender, soft. 19:25 ECG was reviewed by the Attending Physician. kdr Vital Signs: 16:15 BP 82 / 61; Pulse 68; Resp 18; Temp 99.7(O); Pulse Ox 94% on R/A; Weight 79.38 kg; em Height 5 ft. 10 in. (177.80 cm); Pain 0/10; 17:15 BP 105 / 73; Pulse 57; Resp 16 S; Pulse Ox 96% on R/A; dh4 17:30 BP 98 / 65; Pulse 57; Resp 18 S; Pulse Ox 96% on R/A; dh4 18:14 BP 100 / 65; Pulse 53; Resp 16 S; Temp 97.8(O); Pulse Ox 96% on R/A; aa5 18:20 BP 106 / 55; aa5 18:40 BP 94 / 61; Pulse 52; Resp 16 S; Pulse Ox 96% on R/A; aa5 19:13 BP 95 / 69; Pulse 51; Resp 18; Pulse Ox 93% on R/A; ea 21:30 BP 101 / 64; Pulse 55; Resp 18; Temp 98; Pulse Ox 97% on R/A; ea 16:15 Body Mass Index 25.11 (79.38 kg, 177.80 cm) em MDM: 21:05 Differential Diagnosis altered mental status. Data reviewed: vital signs, nurses notes. tw4 Data interpreted: Pulse oximetry: Interpretation:. Test interpretation: by ED physician or midlevel provider: ECG. Counseling: I had a detailed discussion with the patient and/or guardian regarding: the historical points, exam findings, and any diagnostic results supporting the discharge/admit diagnosis, lab results, radiology results. Special discussion: Based on the patient's history, exam and DX evaluation, there is no indication for emergent intervention or inpatient TX. It is understood by the patient/guardian that if the SXs persist or worsen they need to return immediately for re-evaluation. I discussed with the patient/guardian in detail that at this point there is no indication for admission to the hospital. It is understood, however, that if the symptoms persist or worsen the patient needs to return immediately for re-evaluation. 21:07 Patient medically screened. 4 02/25 17:00 Order name: Amylase, Serum 02/25 17:00 Order name: Blood Culture Adult (2) 02/25 17:00 Order name: CBC with Diff; Complete Time: 17:56 02/25 20:42 Interpretation: Normal except: MN% 12.5; LYM% 15.0. tw4 02/25 17:00 Order name: Ckmb; Complete Time: 17:56 02/25 17:00 Order name: CPK; Complete Time: 17:56 02/25 17:00 Order name: Lactate; Complete Time: 17:56 02/25 17:00 Order name: LFT's; Complete Time: 17:56 02/25 20:42 Interpretation: Normal except: AST 51; BILID 0.3; GLOB 3.8; A/G 0.8; ALB 3.1. tw4 02/25 17:00 Order name: Lipase; Complete Time: 17:56 02/25 17:00 Order name: Procalcitonin; Complete Time: 20:41 02/25 20:42 Interpretation: Within normal limits: Procalcitonin 0.05. tw4 02/25 17:00 Order name: Protime (+inr); Complete Time: 17:56 02/25 17:00 Order name: Ptt, Activated; Complete Time: 17:56 02/25 17:00 Order name: Troponin (emerg Dept Use Only); Complete Time: 17:56 02/25 17:00 Order name: Chest Single View XRAY; Complete Time: 21:09 02/25 17:00 Order name: Cardiac monitoring; Complete Time: 17:33 02/25 17:00 Order name: EKG - Nurse/Tech; Complete Time: 17:33 02/25 17:00 Order name: IV Saline Lock - Large Bore; Complete Time: 17:33 02/25 17:00 Order name: Labs collected and sent; Complete Time: 17:33 02/25 17:00 Order name: O2 Per Protocol; Complete Time: 17:33 02/25 17:00 Order name: O2 Sat Monitoring; Complete Time: 17:34 02/25 17:01 Order name: Amylase; Complete Time: 17:56 [facility] 02/25 17:01 Order name: Basic Metabolic Panel; Complete Time: 17:56 [facility] 02/25 20:42 Interpretation: BUN 26; GFR 54. tw4 02/25 17:01 Order name: Blood Culture [facility] 02/25 18:50 Order name: CT Head C Spine; Complete Time: 20:41 [facility] 02/25 20:42 Interpretation: No acute disease. tw4 EC:25 Rate is 58 beats/min. Rhythm is regular, Sinus bradycardia with No ectopy. QRS [place] is kdr Normal. CA interval is normal. QRS interval is normal. Clinical impression: NSR w/ Non-specific ST/T Changes and Sinus bradycardia. Administered Medications: 17:50 Drug: NS 0.9% 500 ml Route: IV; Rate: bolus; Site: right forearm; aa5 19:55 Follow up: Response: No adverse reaction; IV Status: Completed infusion; IV Intake: ea 500ml 18:06 Not Given (Physician Discretion): NS 0.9% (30 ml/kg) 30 ml/kg IV at bolus once; Sepsis aa5 Protocol Disposition: 02/26/20 21:07 Discharged to Home. Impression: Dementia in other diseases classified elsewhere, Contusion of unspecified part of head, Coronavirus infection, unspecified. - Condition is Stable. - Discharge Instructions: Contusion, Head Injury, Adult, Shnf-[id number], COVID-19. - Prescriptions for Medrol (Yasmani) 4 mg Oral Tablets, Dose Pack - take 1 tablet by ORAL route as directed - follow package instructions; 1 packet. Albuterol Sulfate 90 mcg/actuation - inhale 1-2 puff by INHALATION route every 4-6 hours; 1 Inhaler. - Medication Reconciliation Form, Thank You Letter, Antibiotic Education, Prescription Opioid Use form. - Follow up: Private Physician; When: Upon discharge from the Emergency Department; Reason: Recheck today's complaints, Continuance of care, Re-evaluation by your physician. - Problem is new. - Symptoms have improved. Signatures: Dispatcher [employer] Ramon Manning MD MD [facility] Nav Linares RN RN em Williams, Irene, RN RN iw Calderon, Audri, RN RN aa5 Misti Zapien RN RN ea Wadley, Terrence, MD MD tw4 Corrections: (The following items were deleted from the chart) 20:42 20:42 Within normal limits. tw4 tw4 21:41 21:07 02/26/2020 21:07 Discharged to Home. Impression: Dementia in other diseases ea classified elsewhere; Contusion of unspecified part of head; Coronavirus infection, unspecified. Condition is Stable. Forms are Medication Reconciliation Form, Thank You Letter, Antibiotic Education, Prescription Opioid Use. Follow up: Private Physician; When: Upon discharge from the Emergency Department; Reason: Recheck today's complaints, Continuance of care, Re-evaluation by your physician. Problem is new. Symptoms have improved. tw4
[2020-03-02 09:08] VITALS: BP 101/64; TEMP 98; O2SAT 97
== END 2020-02-26 21:41 | disposition home or self-care (01) ==
LOC: ER 15:59
DX: S00.93XA Contusion of unspecified part of head, initial encounter (principal); U07.1 COVID-19; G30.9 Alzheimer's disease, unspecified; F02.80 Dementia in other diseases classified elsewhere, unspecified severity, without behavioral disturbance, psychotic disturbance, mood disturbance, and anxiety; W19.XXXA Unspecified fall, initial encounter; Y93.9 Activity, unspecified; Y92.9 Unspecified place or not applicable; Z88.5 Allergy status to narcotic agent
CPT/HCPCS: 36415; 70450; 71045; 72125; 80048; 80076; 82150; 82550; 82553; 83605; 83690; 84145; 84484; 85025; 85610; 85730; 87040; 93005; 96360; 96361; 99285

== ENCOUNTER 2020-06-01 09:13 | Emergency (ER) | payer OTHER ==
--- OUTSIDE RECORDS SUMMARY | 2020-06-01 09:17 | XMS REPORT | Continuity of Care Document ---
:[address] [facility] t Address [address] [place] [address] Care Team Providers Name Role Phone Provider, Urgent Care Attending Clinician Unavailable Lab, [...] of [facility] left knee left knee l [facility] Left sided Left sided Diagnosis Active [facility] sci[facility] sciatica [facility] Pain, Pain, Diagnosis Active [facility] joint, joint, [facility] - knee, left knee, left Me moria l [facility] ent Clinics Neuroma Neuroma Diagnosis [facility] Allergies, Adverse Reactions, Alerts This patient has no known allergies or adverse reactions. Medications Ordered Filled Start Stop Current Ordering Indication Dosage Frequency Signature Comments Components Source Medication Medication Date Date Medication? Clinician (SIG) Name Name Tramadol Tramadol Yes Anthony [address] [facility] HCl HCl 1-20 Shelley as needed [facility] Ginkgo Ginkgo Yes Anthony not [...] l Outpati ent Clinics Aricept Aricept Yes Delmar not [facility] Bustillo defined [facility] Immunizations Ordered Filled Immunization Date Status Comments [facility] e Immunization Name Name FLUZONE HIGH DOSE FLUZONE HIGH DOSE 2018-11-19 Completed [facility] - OVER 65 OVER 65 00:00:00 [facility] Out[facility] Procedures This patient has no known procedures. Encounters Start End Encounter Admission Attending Care Care Encounter Source Date/Time Date/Time Type Type Clinicians Facility Department ID 2020-05-27 2020-05-27 Outpatient [facility] [id number] [facility] 2020-05-25 2020-05-25 Outpatient [facility] [id number] [facility] 2020-05-25 2020-05-25 Outpatient [facility] [id number] [facility] 2020-04-14 2020-04-14 Outpatient [facility] [id number] [facility] 2020-03-24 2020-03-24 Outpatient [facility] [id number] [facility] 2020-03-01 2020-03-01 Outpatient [facility] [id number] [facility] 2020-02-26 2020-02-26 Outpatient [facility] [id number] [facility] 2020-02-23 2020-02-23 Outpatient [facility] [id number] [facility] 2020-02-16 2020-02-16 Urgent Provider, [facility] [id number] 16:58:09 17:18:09 Care [facility] [id number] [facility] [id number] Professio [phone] nal [address] 2020-01-19 2020-01-19 Outpatient [facility] [id number] [facility] 2019-12-29 2019-12-29 Outpatient [facility] [id number] [facility] 2019-12-28 2019-12-28 Outpatient [facility] [id number] [facility] 2019-12-24 2019-12-24 Outpatient [facility] [id number] [facility] 2019-12-23 2019-12-23 Outpatient [facility] [id number] [facility] 2019-12-21 2019-12-21 Outpatient [facility] [id number] [facility] 2019-12-03 2019-12-03 Outpatient [facility] [id number] [facility] 2019-11-30 2019-11-30 [facility] [id number] 10:33:00 10:33:00 t [employer] s - [employer] [facility] 2019-11-26 2019-11-26 [facility] [id number] 09:30:00 09:30:00 t [facility] 2019-11-25 2019-11-25 [facility] [id number] [facility] 09:20:00 09:20:00 t [employer] s - [employer] [facility] 2019-11-19 2019-11-19 [facility] [id number] [facility] 14:33:00 14:33:00 t [employer] [facility] 2019-10-23 2019-10-23 [facility] [id number] [facility] 14:10:00 14:10:00 t Specialty/U Kathia kes - Specialty rology Memori a /Urology Clinic l Clinic Outpati ent Clinics 2019-10-21 2019-10-21 [facility] [id number] 10:30:00 10:30:00 t Specialty/U Kathia kes - Specialty rology Memori a /Urology Clinic l Clinic Outpati ent Clinics 2019-10-09 2019-10-09 [facility] [id number] 14:50:00 14:50:00 t [employer] s - Drive [facility] 2019-10-09 2019-10-09 [facility] [id number] 11:19:00 11:19:00 t [employer] [facility] 2019-10-08 2019-10-08 [facility] [id number] 10:45:00 10:45:00 t [employer] s - [employer] [facility] 2019-10-02 2019-10-02 [facility] [id number] 08:06:00 08:06:00 t [place] [employer] s - [employer] [facility] 2019-09-28 2019-09-28 [facility] [id number] 11:18:00 11:18:00 t [employer] [facility] ent Clinics 2019-09-24 2019-09-24 [facility] [id number] 11:00:00 11:00:00 t [employer]osy [facility] ent Clinics 2019-09-11 2019-09-11 Laboratory Lab, [facility] [id number] 08:53:12 09:13:12 Only [facility] [id number] [place] [id number] Professio [phone] nal 044 [address] 2019-07-27 2019-07-27 [facility] [id number] 09:00:00 09:00:00 t [facility] 2019-05-21 2019-05-21 [facility] [id number] [facility] 09:30:00 09:30:00 t [facility] Clinics 2019-05-21 2019-05-21 [facility] [id number] [facility] 08:00:00 08:00:00 t Joosy [facility] ent Clinics 2019-05-21 2019-05-21 [facility] [id number] 08:00:00 08:00:00 [address] [place] [address] [facility] 2019-04-21 2019-04-21 [facility] [id number] 15:30:00 15:30:00 [address] [place] [address] [facility]y [facility] 2019-04-21 2019-04-21 [facility] [id number] [facility] 14:00:00 14:00:00 t [facility] 2019-04-21 2019-04-21 [facility] [id number] 09:03:00 09:03:00 t [facility] 2019-04-13 2019-04-13 [facility] [id number] 13:33:00 13:33:00 t [facility] 2019-04-13 2019-04-13 [facility] [id number] 09:41:00 09:41:00 t [facility] 2019-04-06 2019-04-06 [facility] [id number] 14:16:00 14:16:00 t [facility] 2019-03-31 2019-03-31 [facility] [id number] 10:30:00 10:30:00 t [facility] 2019-03-16 2019-03-16 [facility] [id number] 14:27:00 14:27:00 t [facility] Clinics 2019-03-06 2019-03-06 [facility] [id number] 12:01:00 12:01:00 t [facility] 2019-02-24 2019-02-24 [facility] [id number] 15:54:00 15:54:00 t [facility] ent [facility] 2019-02-24 2019-02-24 [facility] [id number] 15:11:00 15:11:00 t [facility] 2019-02-16 2019-02-16 [facility] [id number] 11:41:00 11:41:00 t [facility] 2019-02-11 2019-02-11 [facility] [id number] 10:30:00 10:30:00 t [facility] 2019-01-19 2019-01-19 [facility] [id number] 10:59:00 10:59:00 t [facility] [employer] [facility] 2019-01-15 2019-01-15 [facility] [id number] 14:00:00 14:00:00 t [place] [facility] 2019-01-15 2019-01-15 [facility] [id number] 10:00:00 10:00:00 t [facility] 2018-12-01 2018-12-01 Processing Tech 1, Adc Lab [facility] [id number] 10:07:31 10:22:31 Visit [place] [id number] [place] [id number] [place] [id number] 2018-12-01 2018-12-01 [facility] [id number] 00:00:00 00:00:00 Only Unassigned, [employer] [id number] [place] [id number] 2018-11-19 2018-11-19 [facility] [id number] 09:45:00 09:45:00 t [employer] [facility] ent Clinics 2018-08-25 2018-08-25 [facility] [id number] 10:00:00 10:00:00 t [facility] Clinics 2018-07-15 2018-07-15 [facility] [id number] 10:30:00 10:30:00 t [employer] [facility] ent Clinics 2018-06-09 2018-06-09 [facility] [id number] 12:00:00 12:00:00 t [employer] [facility] ent Clinics 2018-06-09 2018-06-09 [facility] [id number] [facility] 11:00:00 11:00:00 t [place] [employer] [facility] ent Clinics 2018-05-22 2018-05-22 [facility] [id number] 15:30:00 15:30:00 t [facility] Clinics 2018-05-13 2018-05-13 [facility] [id number] 14:00:00 14:00:00 t [facility] ent Clinics 2018-04-24 2018-04-24 [facility] [id number] [facility] 08:30:00 08:30:00 t [facility] 2018-03-27 2018-03-27 [facility] [id number] [facility] 08:00:00 08:00:00 t [facility] 2018-03-21 2018-03-21 [facility] [id number] 08:30:00 08:30:00 t [facility] 2018-03-14 2018-03-14 Out[facility] [id number] [facility] 08:30:00 08:30:00 t [facility] 2018-02-27 2018-02-27 Out[facility] [id number] [facility] 08:30:00 08:30:00 t Bone [facility] Results This patient has no known results.
[2020-06-01 10:24] LABS: Absolute Lymphocytes (CBC) 1.5 K/uL (0.7-4.9); Basophils % 0.8 % (0-1.3); Hematocrit 44.8 % (39.6-49.0); Lymphocytes % 19.6 % (15.3-44.8); MPV 8.2 fL (7.6-11.3)
[2020-06-01 10:41] LABS: Protime INR 0.97
--- NOTE | 2020-06-01 10:51 | RAD REPORT ---
EXAM DESCRIPTION: CT - Head Brain Wo Cont - 06/01/2020 10:30 am CLINICAL HISTORY: Dizziness COMPARISON: 2019 TECHNIQUE: Computed axial tomography of the head was obtained. IV contrast was not requested. All CT scans are performed using dose optimization technique as appropriate and may include automated exposure control or mA/KV adjustment according to patient size. FINDINGS: An intracranial bleed is not seen . The ventricles are normal in caliber. No extra-axial fluid collection is noted. Moderate to marked low-density areas within periventricular, deep and subcortical white matter could either represent ischemic changes secondary to small vessel disease or demyelinating process. No sign ificant change since the prior examination Fluid within the sinuses/ mastoids is not seen. IMPRESSION: No acute intracranial abnormality is seen. If patient's symptoms persist MRI of the bra in would be recommended.
[2020-06-01 10:54] LABS: ALT/SGPT 27 U/L (12-78); AST/SGOT 17 U/L (15-37); Albumin 3.9 g/dL (3.4-5.0); Alkaline Phosphatase 85 U/L (45-117); BUN Blood Urea Nitrogen 23 mg/dL (7-18); Bicarbonate 30 mmol/L (21-32); Bilirubin Direct 0.2 mg/dL (0-0.2); Bilirubin Total 0.8 mg/dL (0.2-1.0); Glucose Level 91 mg/dL (74-106); Magnesium 2.3 mg/dL (1.8-2.4); NT PRO-BNP 82 pg/mL (<125); Potassium 4.8 mmol/L (3.5-5.1); Protein, Total 7.2 g/dL (6.4-8.2); Sodium Level 143 mmol/L (136-145); Troponin (Emerg Dept Use Only) < 0.02 ng/mL (0.0-0.045)
--- NOTE | 2020-06-01 11:00 | RAD REPORT ---
EXAM DESCRIPTION: Carlos Single View3 10:19 am CLINICAL HISTORY: Diaphoresis COMPARISON: 2019 FINDINGS: The lungs appear clear of acute infiltrate. The heart is normal size IMPRESSION: No acute abnormalities displayed
--- NOTE | 2020-06-01 12:35 | RAD REPORT ---
EXAM DESCRIPTION: MRI - Brain Wo Cont - 06/01/2020 12:13 pm CLINICAL HISTORY: Dizziness COMPARISON: 2019 TECHNIQUE: Axial, sagittal, and coronal magnetic images of the brain were obtained. Contrast was not requested FINDINGS: [id number] signal within periventricular, deep and subcortical white matter are un changed. Diffusion-weighted/ADC mapping does not reveal evidence of acute infarction. The ventricles are normal caliber. An extra-axial fluid collection is not present Fluid within the sinuses/mastoids is not noted IMPRESSION: [id number] signal within periventricular, deep and subcortical white matter are unchanged. This may represent ischemic changes secondary to small vessel disease. No acute abnormality displayed
[2020-06-01 12:37] LABS: Urine Blood 1+ (NEG); Urine Glucose NEGATIVE (NEG); Urine Protein NEGATIVE (NEG); Urine Specific Gravity 1.025 (1.005-1.030)
--- NOTE | 2020-06-01 13:15 | ER ---
Nurse's Notes [facility] Name: Darrel Vivas Age: 74 yrs Sex: Male : 1945 Arrival Date: 06/01/2020 Time: 09:22 Bed 7 Private MD: Zia Whitehead Diagnosis: Malaise and fatigue Presentation: 06/01 09:36 Chief complaint: Sudden onset dizziness and diaphoresis while taking a walk yesterday, hb headache that started last night. Coronavirus screen: At this time, the client does not indicate any symptoms associated with coronavirus-19. Ebola Screen: No symptoms or risks identified at this time. Initial Sepsis Screen: Does the patient meet any 2 criteria? No. Patient's initial sepsis screen is negative. Does the patient have a suspected source of infection? No. Patient's initial sepsis screen is negative. Risk Assessment: Do you want to hurt yourself or someone else? Patient reports no desire to harm self or others. Onset of symptoms was May 31, 2020. 09:36 Method Of Arrival: Ambulatory hb 09:36 Acuity: UDAY 3 hb Historical: - Allergies: 09:38 Morphine; hb - PMHx: 09:38 Alzheimers; Seizures; hb - PSHx: 09:38 back sx; Cholecystectomy; Hernia repair; L knee replacement; L shoulder repair; hb - Immunization history:: Adult Immunizations up to date. - Social history:: Smoking status: Patient denies any tobacco usage or history of. Screenin:45 Abuse screen: Denies threats or abuse. Denies injuries from another. Nutritional hb screening: No deficits noted. Tuberculosis screening: No symptoms or risk factors identified. Fall Risk Total Dasilva Fall Scale indicates Low Risk Score (25-44 pts). Fall prevention measures have been instituted. Frequent Obs/Assesments occuring Family Present and informed to notify staff if they need to leave bedside As available Patient and Family Educated on Fall Prevention Program and strategies. Assessment: 09:45 General: Appears in no apparent distress. Behavior is calm, cooperative. Pain: Denies hb pain. Neuro: Level of Consciousness is awake, alert, obeys commands, Oriented to person, place, situation, Reports dizziness, headache. Cardiovascular: Capillary refill < 3 seconds Patient's skin is warm and dry. Respiratory: Respiratory effort is even, unlabored, Respiratory pattern is regular, symmetrical. GI: No signs and/or symptoms were reported involving the gastrointestinal system. : No signs and/or symptoms were reported regarding the genitourinary system. EENT: No signs and/or symptoms were reported regarding the EENT system. Derm: Skin is pink, warm \T\ dry. Musculoskeletal: Reports generalized weakness. 10:33 Reassessment: No changes from previously documented assessment. Patient and/or family hb updated on plan of care and expected duration. Pain level reassessed. 11:17 Reassessment: Patient appears in no apparent distress at this time. No changes from ss previously documented assessment. remains at bedside. Urine specimen obtained at this time. Awaiting results. 11:46 Reassessment: PT TO MRI. hb 12:07 Reassessment: Pt returned from MRI. hb 12:41 Reassessment: Patient appears in no apparent distress at this time. Patient and/or hb family updated on plan of care and expected duration. Pain level reassessed. Vital Signs: 09:36 BP 106 / 94; Pulse 60; Resp 16; Temp 97.2; Pulse Ox 99% on R/A; Pain 5/10; hb 11:15 BP 150 / 83; Pulse 56; Resp 15; Pulse Ox 100% on R/A; hb 12:41 BP 146 / 89; Pulse 58; Resp 16; Pulse Ox 100% on R/A; hb ED Course: 09:22 Patient arrived in ED. mr 09:22 Zia Whitehead DO is Private Physician. mr 09:29 Buzz Mccarty PA is PHCP. [facility] 09:29 Curtis Ortez MD is Attending Physician. jm 09:36 Pauly Baez, DEDE is Primary Nurse. hb 09:38 Triage completed. hb 09:38 Arm band placed on. hb 09:45 Patient has correct armband on for positive identification. Bed in low position. Call hb light in reach. Side rails up X 1. 10:19 XRAY Chest (1 view) In Process Unspecified. EDMS 10:30 CT Head Brain wo Cont In Process Unspecified. EDMS 11:57 NT PRO-BNP Sent. sv 11:57 Magnesium Sent. sv 11:57 LFT's Sent. sv 11:57 CBC with Diff Sent. sv 11:57 Basic Metabolic Panel Sent. sv 12:02 MRI - Brain Wo Cont In Process Unspecified. EDMS 13:14 Zia Whitehead DO is Referral Physician. [facility] 13:32 No provider procedures requiring assistance completed. IV discontinued, intact, hb bleeding controlled, No redness/swelling at site. Administered Medications: No medications were administered Outcome: 13:14 Discharge ordered by MD. [facility] 13:32 Discharged to home ambulatory. hb 13:32 Condition: stable 13:32 Discharge instructions given to patient, significant other, Instructed on discharge instructions, follow up and referral plans. medication usage, Demonstrated understanding of instructions, follow-up care, medications. 13:32 Patient left the ED. hb Signatures: Dispatcher [employer] EDMS Ashley Rothman, RN RN sv Buzz Mccarty PA PA [facility] Nataly López Shelby, RN RN Pauly Baez, DEDE RN hb
--- NOTE | 2020-06-01 13:15 | EDPHYS ---
Physician Documentation [facility] Name: Darrel Vivas Age: 74 yrs Sex: Male : 1945 Arrival Date: 06/01/2020 Time: 09:22 Bed 7 Private MD: Zia Whitehead ED Physician Curtis Ortez HPI: 06/01 09:49 This 74 yrs old Male presents to ER via Ambulatory with complaints of jmm Headache, Dizziness. 09:49 The patient presents with feeling faint, generalized weakness. Onset: The jmm symptoms/episode began/occurred 1 day(s) ago. Modifying factors: The symptoms are alleviated by nothing, the symptoms are aggravated by nothing. Associated signs and symptoms: Pertinent positives: diaphoresis, Pertinent negatives: chest pain, seizure, shortness of breath, syncope. This is a 74 year old male with a history of alzheimers that presents to the ED with complaints of lower extremity weakness, dizziness, fatigue, which began yesterday while taking a walk with his son. Patient denies chest pain, sob, cough. . Historical: - Allergies: 09:38 Morphine; hb - PMHx: 09:38 Alzheimers; Seizures; hb - PSHx: 09:38 back sx; Cholecystectomy; Hernia repair; L knee replacement; L shoulder repair; hb - Immunization history:: Adult Immunizations up to date. - Social history:: Smoking status: Patient denies any tobacco usage or history of. ROS: 09:49 Cardiovascular: Negative for chest pain, palpitations, and edema, Respiratory: Negative jmm for shortness of breath, cough, wheezing, and pleuritic chest pain. 09:49 Constitutional: Positive for fatigue. 09:49 MS/extremity: Positive for weakness. 09:49 Neuro: Positive for dizziness. 09:49 All other systems are negative. Exam: 09:49 Constitutional: This is a well developed, well nourished patient who is awake, alert, jmm and in no acute distress. Head/Face: atraumatic. Eyes: EOMI, no conjunctival erythema appreciated ENT: Moist Mucus Membranes Neck: Trachea midline, Supple Chest/axilla: Normal chest wall appearance and motion. Cardiovascular: Regular rate and rhythm. No edema appreciated Respiratory: Normal respirations, no respiratory distress appreciated Abdomen/GI: Non distended, soft Back: Normal ROM Skin: General appearance color normal MS/ Extremity: Moves all extremities, no obvious deformities appreciated, no edema noted to the lower extremities Neuro: Awake and alert, normal gait Psych: Behavior is normal, Mood is normal, Patient is cooperative and pleasant Vital Signs: 09:36 BP 106 / 94; Pulse 60; Resp 16; Temp 97.2; Pulse Ox 99% on R/A; Pain 5/10; hb 11:15 BP 150 / 83; Pulse 56; Resp 15; Pulse Ox 100% on R/A; hb 12:41 BP 146 / 89; Pulse 58; Resp 16; Pulse Ox 100% on R/A; hb MDM: 09:49 Patient medically screened. [facility] 13:13 Data reviewed: vital signs, nurses notes. Counseling: I had a detailed discussion with ted the patient and/or guardian regarding: the historical points, exam findings, and any diagnostic results supporting the discharge/admit diagnosis, lab results, radiology results, the need for outpatient follow up, to return to the emergency department if symptoms worsen or persist or if there are any questions or concerns that arise at home. ED course: Patient is alert and non toxic in appearance in the ED. No signs of resp distress. No focal weakness. MRI negative for acute process. No SOB. Will follow up with neuro and cardio. . 06/01 09:51 Order name: Basic Metabolic Panel [facility] 06/01 09:51 Order name: CBC with Diff [facility] 06/01 09:51 Order name: LFT's [facility] 06/01 09:51 Order name: Magnesium [facility] 06/01 09:51 Order name: NT PRO-BNP [facility] 06/01 09:51 Order name: PT-INR; Complete Time: 10:46 [facility] 06/01 09:51 Order name: Troponin (emerg Dept Use Only); Complete Time: 10:56 [facility] 06/01 09:51 Order name: XRAY Chest (1 view); Complete Time: 11:04 [facility] 06/01 09:51 Order name: Basic Metabolic Panel; Complete Time: 10:56 [facility] 06/01 09:51 Order name: CBC with Automated Diff; Complete Time: 10:36 [facility] 06/01 09:51 Order name: Liver (Hepatic) Function; Complete Time: 10:56 [facility] 06/01 09:51 Order name: Magnesium; Complete Time: 10:56 [facility] 06/01 09:51 Order name: NT PRO-BNP; Complete Time: 10:56 [facility] 06/01 11:29 Order name: Urine Dipstick--Ancillary (enter results); Complete Time: 12:40 [facility] 06/01 09:51 Order name: EKG; Complete Time: 09:51 [facility] 06/01 09:51 Order name: Cardiac monitoring; Complete Time: 11:10 [facility] 06/01 09:51 Order name: EKG - Nurse/Tech; Complete Time: 11:10 [facility] 06/01 09:51 Order name: IV Saline Lock; Complete Time: 11:10 [facility] 06/01 09:51 Order name: Labs collected and sent; Complete Time: 11:10 [facility] 06/01 09:51 Order name: O2 Per Protocol; Complete Time: 11:10 [facility] 06/01 09:51 Order name: O2 Sat Monitoring; Complete Time: 11:10 [facility] 06/01 09:51 Order name: CT Head Brain wo Cont; Complete Time: 10:56 [facility] 06/01 09:52 Order name: Urine Dipstick-Ancillary (obtain specimen); Complete Time: 11:17 [facility] 06/01 10:57 Order name: MRI - Brain Wo Cont; Complete Time: 12:40 jm Administered Medications: No medications were administered Disposition: 17:53 Co-signature as Attending Physician, Curtis Ortez MD available for consultation at [facility] all times. Signature for administrative purposes. Did not see or evaluate the patient unless otherwise noted. . Disposition: 06/01/20 13:14 Discharged to Home. Impression: Malaise and fatigue. - Condition is Stable. - Discharge Instructions: Near-Syncope, Fatigue. - Medication Reconciliation Form, Thank You Letter, Antibiotic Education, Prescription Opioid Use form. - Follow up: Zia Whitehead, ; When: 2 - 3 days; Reason: Recheck today's complaints, Continuance of care, Re-evaluation by your physician. Signatures: Dispatcher [employer] [facility] Buzz Mccarty PA PA m Pauly Baez, RN RN Curtis Hernandez MD MD ps1 Corrections: (The following items were deleted from the chart) 13:32 13:14 06/01/2020 13:14 Discharged to Home. Impression: Malaise and fatigue. Condition hb is Stable. Forms are Medication Reconciliation Form, Thank You Letter, Antibiotic Education, Prescription Opioid Use. Follow up: Zia Whitehead; When: 2 - 3 days; Reason: Recheck today's complaints, Continuance of care, Re-evaluation by your physician. ted
[2020-06-01 13:36] VITALS: TEMP 97.2
[2020-06-01 13:38] VITALS: O2SAT 100
[2020-06-01 13:39] VITALS: BP 146/89
== END 2020-06-01 13:32 | disposition home or self-care (01) ==
LOC: ER 09:13
DX: R42 Dizziness and giddiness (principal); R53.81 Other malaise; F30.9 Manic episode, unspecified; Z96.652 Presence of left artificial knee joint
CPT/HCPCS: 36415; 70450; 70551; 71045; 80048; 80076; 81003; 83735; 83880; 84484; 85025; 85610; 93005; 99283

== ENCOUNTER 2020-07-10 06:45 | Emergency (ER) | payer OTHER ==
--- OUTSIDE RECORDS SUMMARY | 2020-07-10 06:48 | XMS REPORT | Continuity of Care Document ---
:1945 Author Organization [facility] t Address [address] [place] [address] Care Team Providers Name Role Phone Darinel [...] St sciatica sciatica [facility] Pain, Pain, Diagnosis Active [facility], left knee, left Me [facility]ia [facility] Neuroma Neuroma Diagnosis [facility] Allergies, Adverse Reactions, Alerts Allergy Allergy Status Severity Reaction(s) Onset Inactive Treating Comm ents Source Name Type Date Date Clinician Propofol Propensi Active Other (See Akbar perez ty to Comments) 06-26 patient's Meth sudeep adverse 00:00: family st reaction 00 "doesnt s to do well" drug Morphine Propensi Active 2018-0 [place] ty to 4-11 Methodi adverse 00:00: st reaction 00 s to drug Family History Family Member Diagnosis Comments Start Date Stop Date Source Natural mother Cancer [facility] Natural mother Dementia [facility] Social History Social Habit Start Date Stop Date Quantity Comments Source Tobacco use and 2017-10-30 2017-10-30 Never used [facility] ethodist exposure 00:00:00 00:00:00 Alcohol intake 2017-10-30 2017-10-30 Current [facility] 00:00:00 00:00:00 non-drinker of alcohol (finding) Sex Ass[birth year] [facility] ethodist 00:00:00 00:00:00 Smoking Status Start Date Stop Date Source Never smoker [place] [facility] t Medications Ordered Filled Start Stop [...] daily. UNABLE TO Yes Med Name: Alberto unger FIND 8-15 Vatality Methodi 12:46: multivitam st 10 in cyanocobala Yes QD Take by Alberto unger min 100 MCG 8-15 mouth Methodi tablet 12:46: daily. st 10 aspirin Yes 81mg QD Take 81 mg [place] (ECOTRIN) 8-15 by mouth Method i 81 MG 12:44: daily. st enteric 11 coated tablet UNABLE TO Yes [employer] 3 Alberto ston FIND 8-15 tabs Methodi 12:44: BID(vitami st [...] Filled Immunization Date Status Comments [facility] e Immunization Name Name FLUZONE HIGH DOSE FLUZONE HIGH DOSE 2018-11-[address] [facility] 65 OVER 65 00:00:00 [facility] Outpatient Clinics Procedures This patient has no known procedures. Plan of Care Planned Activity Planned Date Details Comments Source Future Scheduled 2020-10-16 INFLUENZA VACCINE Gunjan lombardi [facility] 00:00:00 [code = INFLUENZA VACCINE] Future Scheduled 2012-01-01 65+ PNEUMOCOCCAL [place] [facility] 00:00:00 VACCINE (1 of 1 - PPSV23) [code = 65+ PNEUMOCOCCAL VACCINE (1 of 1 - PPSV23)] Future Scheduled 1996 COLONOSCOPY SCREENING ana [facility] 00:00:00 [code = COLONOSCOPY SCREENING] Future Scheduled 1996 SHINGLES VACCINES (#1) H spencer [facility] 00:00:00 [code = SHINGLES VACCINES (#1)] Future Scheduled 1964 Hepatitis C screening [facility] 00:00:00 (procedure) [code = 473416501] Future Scheduled 1962 COVID-19 VACCINE (1) Alberto unger [facility] 00:00:00 [code = COVID-19 VACCINE (1)] Encounters Start End Encounter Admission Attending Care Care Encounter Source Date/Time Date/Time Type Type Clinicians Facility Department ID 2020-06-30 2020-06-30 Outpatient [facility] [id number] [facility] 2020-06-03 2020-06-03 Outpatient [facility] [id number] [facility] 2020-06-01 2020-06-01 Outpatient [facility] [id number] [facility] 2020-05-27 2020-05-27 Outpatient [facility] [id number] [facility] 2020-05-25 2020-05-25 Outpatient [facility] [id number] [facility] 2020-05-25 2020-05-25 Outpatient [facility] [id number] [facility] 2020-04-14 2020-04-14 Outpatient [facility] [id number] [facility] 2020-03-24 2020-03-24 Outpatient [facility] [id number] [facility] 2020-03-01 2020-03-01 Outpatient [facility]LMLC [facility] [id number] [facility] 2020-02-26 2020-02-26 Outpatient [facility]LMLC [facility] [id number] [facility] 2020-02-23 2020-02-23 [facility] [id number] [facility] 2020-02-16 2020-02-16 Urgent Provider, [facility] [id number] 16:58:09 17:18:09 Care [facility] [id number] Care [place] [id number] [facility] [phone] nal [address] 2020-01-19 2020-01-19 [facility] [id number] [facility] 2019-12-29 2019-12-29 [facility] [id number] [facility] 2019-12-28 2019-12-28 [facility] [id number] [facility] 2019-12-24 2019-12-24 [facility] [id number] [facility] 2019-12-23 2019-12-23 [facility] [id number] [facility] 2019-12-21 2019-12-21 [facility] [id number] [facility] 2019-12-03 2019-12-03 [facility] [id number] [facility] 2019-11-30 2019-11-30 [facility] [id number] [address] 10[facility]33:00 10:33:00 t Jay Em Jay Em [facility] - Drive [facility] l Medicine Outpati ent Clinics 2019-11-26 2019-11-26 [facility] [id number] 09:30:00 09:30:00 t [facility] ent Clinics 2019-11-25 2019-11-25 [facility] [id number] 09:20:00 09:20:00 t Jay Em [employer] s - Drive [facility] l Medicine Outpati ent Clinics 2019-11-19 2019-11-19 [facility] [id number] 14:33:00 14:33:00 t Jay [employer] s - Drive [facility] Medicine Outpati ent Clinics 2019-10-23 2019-10-23 [facility] [id number] 14:10:00 14:10:00 t Specialty/U Kathia kes - Specialty rology [facility] a /Urology Clinic l [facility] 2019-10-21 2019-10-21 [facility] [id number] 10:30:00 10:30:00 t Specialty/U Kathia kes - Specialty rology [facility] a /Urology Clinic l [facility] Clinics 2019-10-09 2019-10-09 [facility] [id number] 14[facility]50:00 14:50:00 t Jay [employer] s - Drive [facility] Medicine Outpati ent Clinics 2019-10-09 2019-10-09 [facility] [id number] 11:19:00 11:19:00 t Jay [employer] s - Drive [facility] Medicine Outpati ent Clinics 2019-10-08 2019-10-08 [facility] [id number] 10:45:00 10:45:00 t Jay [employer] s - Drive [facility] Medicine Medicine Outpati ent Clinics 2019-10-02 2019-10-02 [facility] [id number] 08:06:00 08:06:00 t Jay [employer] s - Drive [facility] Medicine Outpati ent Clinics 2019-09-28 2019-09-28 [facility] [id number] 11:18:00 11:18:00 t Jay [employer] s - Drive [facility] Medicine Outpati ent Clinics 2019-09-24 2019-09-24 [facility] [id number] 11:00:00 11:00:00 t Kang Hui [employer] [facility] ent [facility] 2019-09-11 2019-09-11 Laboratory Lab, [facility] [id number] 08:53:12 09:13:[address] [facility] [id number] [place] [id number] [facility] [phone] nal 044 [address] One 2019-07-27 2019-07-27 [facility] [id number] 09:00:00 09:00:00 t Bone [facility] 2019-05-21 2019-05-21 [facility] [id number] 09:30:00 09:30:00 t Bone [facility] 2019-05-21 2019-05-21 [facility] [id number] 08:00:00 08:00:00 t [employer] [facility] ent [facility] 2019-05-21 2019-05-21 [facility] [id number] 08:00:00 08:00:00 t [employer] [facility] ent [facility] 2019-04-21 2019-04-21 [facility] [id number] 15:30:00 15:30:00 t [employer] [facility] ent [facility] 2019-04-21 2019-04-21 [facility] [id number] 14:00:00 14:00:00 t Bone [facility] 2019-04-21 2019-04-21 [facility] [id number] 09:03:00 09:03:00 t Bone [facility] 2019-04-13 2019-04-13 [facility] [id number] 13:33:00 13:33:00 t Bone [facility] ent Clinics 2019-04-13 2019-04-13 [facility] [id number] 09:41:00 09:41:00 t Bone [facility] 2019-04-06 2019-04-06 [facility] [id number] 14:16:00 14:16:00 t Bone [facility] 2019-03-31 2019-03-31 [facility] [id number] 10:30:00 10:30:00 t Bone [facility] ent Clinics 2019-03-16 2019-03-16 [facility] [id number] 14:27:00 14:27:00 t Bone [facility] 2019-03-06 2019-03-06 [facility] [id number] 12:01:00 12:01:00 t Bone [facility] 2019-02-24 2019-02-24 [facility] [id number] 15:54:00 15:54:00 t Bone [facility] ent Clinics 2019-02-24 2019-02-24 [facility] [id number] 15:11:00 15:11:00 t Bone [facility] and [facility] 2019-02-16 2019-02-16 [facility] [id number] 11:41:00 11:41:00 t Bone [facility] 2019-02-11 2019-02-11 [facility] [id number] 10:30:00 10:30:00 t Bone [facility] 2019-01-19 2019-01-19 [facility] [id number] 10:59:00 10:59:00 t [facility] 2019-01-15 2019-01-15 [facility] [id number] 14:00:00 14:00:00 t [facility] 2019-01-15 2019-01-15 [facility] [id number] 10:00:00 10:00:00 t Bone [facility] 2018-12-01 2018-12-01 Working Manager 1, Adc Lab [facility] [id number] 10:07:31 10:22:31 Visit [place] [id number] [place] [id number] [place] [id number] [id number] 2018-12-01 2018-12-01 Orders Doctor TONI [id number] 00:00:00 00:00:00 Only Unassigned, XOCHITL [id number] [place] [id number] 2018-11-19 2018-11-19 [facility] [id number] 09:45:00 09:45:00 t [facility] 2018-08-25 2018-08-25 [facility] [id number] 10:00:00 10:00:00 t Bone [facility] 2018-07-15 2018-07-15 [facility] [id number] 10:30:00 10:30:00 t [employer] [facility] ent Clinics 2018-06-09 2018-06-09 [facility] [id number] 12:00:00 12:00:00 t [employer] [facility] ent [facility] 2018-06-09 2018-06-09 [facility] [id number] 11:00:00 11:00:00 t [employer] [facility] ent [facility] 2018-05-22 2018-05-22 [facility] [id number] 15:30:00 15:30:00 t [facility] ent Clinics 2018-05-13 2018-05-13 [facility] [id number] 14:00:00 14:00:00 t [employer] [facility] ent Clinics 2018-04-24 2018-04-24 [facility] [id number] 08:30:00 08:30:00 t [facility] ent Clinics 2018-03-27 2018-03-27 [facility] [id number] 08:00:00 08:00:00 t Bone [facility] ent Clinics 2018-03-21 2018-03-21 [facility] [id number] 08:30:00 08:30:00 t Bone [facility] ent Clinics 2018-03-14 2018-03-14 [facility] [id number] 08:30:00 08:30:00 t Bone [facility] ent Clinics 2018-02-27 2018-02-27 [facility] [id number] 08:30:00 08:30:00 t Bone [facility] Results This patient has no known results.
[2020-07-10 08:07] LABS: Urine Blood Negative (Negative); Urine Glucose Negative (Negative); Urine Protein Negative (Negative)
[2020-07-10 08:19] LABS: Barbiturates NEGATIVE (NEGATIVE); Benzodiazepines NEGATIVE (NEGATIVE); Cocaine NEGATIVE (NEGATIVE); METHAMPHETAM NEGATIVE (NEGATIVE); Methadone NEGATIVE (NEGATIVE); Opiates NEGATIVE (NEGATIVE); Phencyclidine NEGATIVE (NEGATIVE); THC Cannibis NEGATIVE (NEGATIVE)
--- NOTE | 2020-07-10 08:24 | RAD REPORT ---
EXAM DESCRIPTION: CT - Head Brain Wo Cont - 07/10/2020 8:12 am CLINICAL HISTORY: Alteration of awareness/confusion COMPARISON: May 2020 TECHNIQUE: Computed axial tomography of the head was obtained. IV contrast was not requested. All CT scans are performed using dose optimization technique as appropriate and may include automated exposure control or mA/KV adjustment according to patient size. FINDINGS: An intracranial bleed is not seen . The ventricles are normal in caliber. No extra-axial fluid collection is noted. Moderate to marked low-density areas within periventricular, deep and subcortical white matter likely represent ischemic changes secondary to small vessel disease. Fluid within the sinuses/ mastoids is not seen. IMPRESSION: No acute intracranial abnormality is seen. If patient's symptoms persist MRI of the bra in would be recommended.
--- NOTE | 2020-07-10 08:25 | RAD REPORT ---
EXAM DESCRIPTION: Carlos Single View07/10/2020 8:08 am CLINICAL HISTORY: Confusion COMPARISON: May 2020 FINDINGS: The lungs appear clear of acute infiltrate. The heart is normal size IMPRESSION: No acute abnormalities displayed
[2020-07-10] MEDS ORDERED: NA CHLORIDE 0.9% 1,000 ML ONE (08:39)
[2020-07-10 08:59] LABS: Protime INR 1.04
[2020-07-10 09:01] LABS: Absolute Lymphocytes (CBC) 1.3 K/uL (0.7-4.9); Basophils % 0.8 % (0-1.3); Hematocrit 43.3 % (39.6-49.0); Lymphocytes % 22.5 % (15.3-44.8); RBC Red Blood Cell Count 4.71 M/uL (4.33-5.43)
[2020-07-10 09:22] LABS: ALT/SGPT 31 U/L (12-78); AST/SGOT 21 U/L (15-37); Albumin 3.4 g/dL (3.4-5.0); Alkaline Phosphatase 88 U/L (45-117); BUN Blood Urea Nitrogen 15 mg/dL (7-18); Bicarbonate 29 mmol/L (21-32); Bilirubin Direct 0.1 mg/dL (0-0.2); Bilirubin Total 0.5 mg/dL (0.2-1.0); Glucose Level 94 mg/dL (74-106); Magnesium 2.1 mg/dL (1.8-2.4); NT PRO-BNP 113 pg/mL (<125); Protein, Total 6.7 g/dL (6.4-8.2); Sodium Level 142 mmol/L (136-145); Troponin (Emerg Dept Use Only) < 0.02 ng/mL (0.0-0.045)
--- NOTE | 2020-07-10 10:28 | EDPHYS ---
Physician Documentation [facility] Name: Darrel Vivas Age: 74 yrs Sex: Male : 1945 Arrival Date: 07/10/2020 Time: 07:01 Bed 8 Private MD: ED Physician Bigg Hazel HPI: 07/10 08:47 This 74 yrs old Male presents to ER via Wheelchair with complaints of Blurred pkl Vision. 08:47 The patient presents with agitation, confusion. Onset: The symptoms/episode pkl began/occurred 3 day(s) ago. Associated signs and symptoms: Pertinent positives: increase blurring of vision right eye, headache, seizure, started on new seizure medication Divalproex 3 days ago. Historical: - Allergies: 07:21 Morphine; wh - Home Meds: 07:24 aspirin 81 mg Oral TbEC 1 tab once daily [Active]; amiodarone 200 mg Oral tab 1 tab ss once daily [Active]; divalproex 250 mg oral Tb24 once daily [Active]; memantine oral oral [Active]; donepezil 5 mg oral tab 1 tab once daily [Active]; - PMHx: 07:21 Alzheimers; Seizures; wh - PSHx: 07:21 back sx; Cholecystectomy; Hernia repair; L knee replacement; L shoulder repair; wh - Immunization history:: Adult Immunizations up to date. - Social history:: Smoking status: Patient denies any tobacco usage or history of. ROS: 08:47 ENT: Negative for injury, pain, and discharge. pkl 08:47 Eyes: Positive for visual disturbance, of the right eye. 08:47 Neck: Negative for pain with movement, stiffness. 08:47 Cardiovascular: Negative for chest pain. 08:47 Respiratory: Negative for cough, shortness of breath. 08:47 Abdomen/GI: Negative for abdominal pain, nausea, vomiting, and diarrhea. 08:47 Back: Negative for acute changes. 08:47 : Negative for urinary symptoms. 08:47 MS/extremity: Negative for acute changes. 08:47 Skin: Negative for rash. 08:47 Neuro: Positive for altered mental status, headache. Exam: 08:47 Head/Face: Normocephalic, atraumatic. Eyes: Pupils equal round and reactive to light, pkl extra-ocular motions intact. Lids and lashes normal. Conjunctiva and sclera are non-icteric and not injected. Cornea within normal limits. Periorbital areas with no swelling, redness, or edema. ENT: Nares patent. No nasal discharge, no septal abnormalities noted. Tympanic membranes are normal and external auditory canals are clear. Oropharynx with no redness, swelling, or masses, exudates, or evidence of obstruction, uvula midline. Mucous membranes moist. Neck: Trachea midline, no thyromegaly or masses palpated, and no cervical lymphadenopathy. Supple, full range of motion without nuchal rigidity, or vertebral point tenderness. No Meningismus. Chest/axilla: Normal chest wall appearance and motion. Nontender with no deformity. No lesions are appreciated. Cardiovascular: Regular rate and rhythm with a normal S1 and S2. No gallops, murmurs, or rubs. Normal PMI, no JVD. No pulse deficits. Respiratory: Lungs have equal breath sounds bilaterally, clear to auscultation and percussion. No rales, rhonchi or wheezes noted. No increased work of breathing, no retractions or nasal flaring. Abdomen/GI: Soft, non-tender, with normal bowel sounds. No distension or tympany. No guarding or rebound. No evidence of tenderness throughout. Back: No spinal tenderness. No costovertebral tenderness. Full range of motion. Skin: Warm, dry with normal turgor. Normal color with no rashes, no lesions, and no evidence of cellulitis. MS/ Extremity: Pulses equal, no cyanosis. Neurovascular intact. Full, normal range of motion. 08:47 Neuro: Orientation: appropriate for stated age, Mentation: confused, Cranial nerves: grossly normal, Cerebellar function: is grossly normal, Motor: is normal, Sensation: is normal. Vital Signs: 07:13 BP 132 / 76; Pulse 61; Resp 16; Temp 97.3(TE); Pulse Ox 98% on R/A; Weight 81.65 kg; wh Height 6 ft. 0 in. (182.88 cm); Pain 0/10; 08:30 BP 152 / 83; Pulse 55; Resp 16; Pulse Ox 98% ; sv 09:00 BP 164 / 83; Pulse 52; Resp 16; Pulse Ox 98% ; sv 07:13 Body Mass Index 24.41 (81.65 kg, 182.88 cm) Visual Acuity: 08:41 Left Eye Visual acuity 20/30, ; Right Eye Visual acuity 20/40, ; Both Eyes Visual hb acuity 20/25; Without Lenses; Wears glasses, did not bring to ED MDM: 07:27 Patient medically screened. pkl 10:18 Data reviewed: vital signs, nurses notes, lab test result(s), EKG, radiologic studies, pkl CT scan, plain films. ED course: Patient feeling better. Discussed lab, EKG and imaging studies with patient and . Options given to patient and regarding admission for observation or outpatient follow up with Dr. Lim. Patient and would like to follow up with Dr. Lim tomorrow. They said he has an appointment for tomorrow with Dr. Lim. Avised to return if necessary. Patient and understood instructions. 07/10 07:53 Order name: Basic Metabolic Panel; Complete Time: 09:59 pkl 07/10 07:53 Order name: CBC with Diff; Complete Time: :59 pkl 07/10 07:53 Order name: LFT's; Complete Time: :59 pkl 07/10 07:53 Order name: Magnesium; Complete Time: 09:59 pkl 07/10 07:53 Order name: NT PRO-BNP; Complete Time: :59 pkl 07/10 07:53 Order name: PT-INR; Complete Time: :59 pkl 07/10 07:53 Order name: Troponin (emerg Dept Use Only); Complete Time: 09:59 pkl 07/10 07:53 Order name: XRAY Chest (1 view); Complete Time: 09:59 pkl 07/10 07:53 Order name: EKG; Complete Time: 07:54 pkl 07/10 07:53 Order name: Cardiac monitoring; Complete Time: 09:00 pkl 07/10 07:53 Order name: UDS; Complete Time: :59 pkl 07/10 07:53 Order name: CT Head Brain wo Cont; Complete Time: :59 pkl 07/10 08:07 Order name: Urine Dipstick-Ancillary; Complete Time: 09:59 EDMS 07/10 07:53 Order name: EKG - Nurse/Tech; Complete Time: 08:59 pkl 07/10 07:53 Order name: IV Saline Lock; Complete Time: 09:00 pkl 07/10 07:53 Order name: Labs collected and sent; Complete Time: :00 pkl 07/10 07:53 Order name: O2 Per Protocol; Complete Time: :00 pkl 07/10 07:53 Order name: O2 Sat Monitoring; Complete Time: :00 pkl 07/10 07:53 Order name: Visual Acuity; Complete Time: 09:00 pkl Administered Medications: 08:40 Drug: NS 0.9% 1000 ml Route: IV; Rate: 100 ml/hr; Site: right antecubital; hb 10:40 Follow up: Response: No adverse reaction; IV Status: Completed infusion; IV Intake: hb 225ml Disposition: 07/10/20 10:27 Discharged to Home. Impression: Confusio. Seizure disorder. - Condition is Stable. - Medication Reconciliation Form, Thank You Letter, Antibiotic Education, Prescription Opioid Use form. - Follow up: Tahir Lim MD; When: Tomorrow; Reason: Re-evaluation by your physician. - Problem is new. - Symptoms have improved. Signatures: Dispatcher [employer] EDMS Bigg Hazel MD MD pk Jeanne Hale RN RN Pauly Baez RN RN Dorina Marcelo RN RN Corrections: (The following items were deleted from the chart) 10:47 10:27 07/10/2020 10:27 Discharged to Home. Impression: Confusio. Seizure disorder. hb Condition is Stable. Forms are Medication Reconciliation Form, Thank You Letter, Antibiotic Education, Prescription Opioid Use. Follow up: Tahir Lim; When: Tomorrow; Reason: Re-evaluation by your physician. Problem is new. Symptoms have improved. pkl
--- NOTE | 2020-07-10 10:28 | ER ---
Nurse's Notes [facility] Name: Darrel Vivas Age: 74 yrs Sex: Male : 1945 Arrival Date: 07/10/2020 Time: 07:01 Bed 8 Private MD: Diagnosis: Confusio. Seizure disorder Presentation: 07/10 07:13 Chief complaint: Spouse and/or significant other states: Increased confusion, wh agitation, feels like he is going to and difficulty seeing out of R eye that seems to have gotten worse this morning. states, "He is usually really gentle, but he was just getting upset this morning, and he wanted to come to the hospital." Pt reports that he is very tired and does not feel well in general. Pt had a new medication added 3 days ago, Divalproex. Coronavirus screen: Client denies travel out of the [place] in the last 14 days. Ebola Screen: Patient denies exposure to infectious person. Patient denies travel to an Ebola-affected area in the 21 days before illness onset. Initial Sepsis Screen: Does the patient meet any 2 criteria? No. Patient's initial sepsis screen is negative. Does the patient have a suspected source of infection? No. Patient's initial sepsis screen is negative. Risk Assessment: Do you want to hurt yourself or someone else? Patient reports no desire to harm self or others. Note reports that most symptoms have been ongoing, but getting worse. Agitation is new for him this morning. Onset of symptoms was July 10, 2020. 07:13 Method Of Arrival: Wheelchair 07:13 Acuity: UDAY 3 Historical: - Allergies: 07:21 Morphine; - Home Meds: 07:24 aspirin 81 mg Oral TbEC 1 tab once daily [Active]; amiodarone 200 mg Oral tab 1 tab ss once daily [Active]; divalproex 250 mg oral Tb24 once daily [Active]; memantine oral oral [Active]; donepezil 5 mg oral tab 1 tab once daily [Active]; - PMHx: 07:21 Alzheimers; Seizures; wh - PSHx: 07:21 back sx; Cholecystectomy; Hernia repair; L knee replacement; L shoulder repair; - Immunization history:: Adult Immunizations up to date. - Social history:: Smoking status: Patient denies any tobacco usage or history of. Screenin:24 Abuse screen: Denies threats or abuse. Denies injuries from another. Nutritional ss screening: No deficits noted. Tuberculosis screening: Never had TB. 09:45 Fall Risk None identified. hb Vital Signs: 07:13 BP 132 / 76; Pulse 61; Resp 16; Temp 97.3(TE); Pulse Ox 98% on R/A; Weight 81.65 kg; wh Height 6 ft. 0 in. (182.88 cm); Pain 0/10; 08:30 BP 152 / 83; Pulse 55; Resp 16; Pulse Ox 98% ; sv 09:00 BP 164 / 83; Pulse 52; Resp 16; Pulse Ox 98% ; sv 07:13 Body Mass Index 24.41 (81.65 kg, 182.88 cm) wh Visual Acuity: 08:41 Left Eye Visual acuity 20/30, ; Right Eye Visual acuity 20/40, ; Both Eyes Visual hb acuity 20/25; Without Lenses; Wears glasses, did not bring to ED ED Course: 07:01 Patient arrived in ED. ag3 07:20 Triage completed. wh 07:21 Arm band placed on right wrist. wh 07:24 Patient has correct armband on for positive identification. ss 07:27 Bigg Hazel MD is Attending Physician. pkl 08:06 XRAY Chest (1 view) In Process Unspecified. EDMS 08:11 CT Head Brain wo Cont In Process Unspecified. EDMS 08:36 Inserted saline lock: 20 gauge in right antecubital area, using aseptic technique. hb Blood collected. 08:40 Pauly Baez, DEDE is Primary Nurse. hb 10:26 Tahir Lim MD is Referral Physician. pkl 10:45 No provider procedures requiring assistance completed. IV discontinued, intact, hb bleeding controlled, No redness/swelling at site. Administered Medications: 08:40 Drug: NS 0.9% 1000 ml Route: IV; Rate: 100 ml/hr; Site: right antecubital; hb 10:40 Follow up: Response: No adverse reaction; IV Status: Completed infusion; IV Intake: hb 225ml Intake: 10:40 IV: 225ml; Total: 225ml. hb Outcome: 10:27 Discharge ordered by . pkl 10:45 Discharged to home ambulatory. hb 10:45 Condition: stable 10:45 Discharge instructions given to patient, Instructed on discharge instructions, follow up and referral plans. medication usage, Demonstrated understanding of instructions, follow-up care, medications. 10:47 Patient left the ED. Signatures: Dispatcher [employer] EDAshley Butler, RN Bigg Kolb MD MD pkl Smirch, Shelby, RN RN ss Baxter, Heather, RN RN hb Habalo, Winsy, RN RN Ashly Fu3 Corrections: (The following items were deleted from the chart) 07:23 07:13 Chief complaint: Spouse and/or significant other states: Increased confusion, ss agitation, feels like he is going to and difficulty seeing out of R eye that seems to have gotten worse this morning. states, "He is usually really gentle, but he was just getting upset this morning, and he wanted to come to the hospital." Pt reports that he is very tired and does not feel well in general.
[2020-07-10 10:54] VITALS: TEMP 97.3; O2SAT 98
[2020-07-10 10:57] VITALS: BP 164/83
--- NOTE | 2020-07-11 10:50 | EKG ---
Test Date: 2020-07-10 Test Time: 08:51:42 Visualization Developer: HB MEASUREMENT RESULTS: Intervals: Rate: 55 RI: 204 QRSD: 78 QT: 442 QTc: 422 [place]: P: 21 RI: 204 QRS: 37 T: 65 INTERPRETIVE STATEMENTS: Sinus bradycardia Otherwise normal ECG Compared to ECG 06/01/2020 09:51:17 First degree AV block no longer present Electronically Signed On 07-11-20 10:46:57 CDT by Rome Carbajal
== END 2020-07-10 10:47 | disposition home or self-care (01) ==
LOC: ER 06:45
DX: G40.909 Epilepsy, unspecified, not intractable, without status epilepticus (principal); G30.9 Alzheimer's disease, unspecified; F02.80 Dementia in other diseases classified elsewhere, unspecified severity, without behavioral disturbance, psychotic disturbance, mood disturbance, and anxiety; Z79.82 Long term (current) use of aspirin; Z88.5 Allergy status to narcotic agent
CPT/HCPCS: 96361; 93005; 85025; 80048; 36415; 83735; 85610; 80076; 80307 ×8; 81003; 84484; 83880; 70450; 71045; 96360; 99284; J7030